=== PATIENT | male | born 1935 | race Caucasian/White ===

== ENCOUNTER → 2016-09-23 | Outpatient (CLI) | payer OTHER ==
[~2016-09-23] MED LIST: CLON1TAB PO; CLON1TAB3 PO; IBUP-1277 PO; MULT-513 PO; OMEG12006 PO; PREG1CAP70 PO; ROPI1TAB PO; SIMV80TA2 PO; TRAM-10 PO
--- NOTE | 2016-09-23 12:47 | DIAGNOSTIC IMAGING REPORT ---
BILATERAL LOWER EXTREMITY VENOUS DOPPLER HISTORY: Pain. Edema. SWELLING OF LOWER EXTREMITY M79.89 COMPARISON STUDY: None. FINDINGS: There is normal compressibility, flow, and augmentation within the bilateral lower extremity deep venous systems. IMPRESSION: No DVT within the right or left lower extremity. Electronically signed by: Molina Villar M.D. 09/23/2016 12:46 PM Dictated Date/Time: 09/23/2016 12:46 PM
--- NOTE | 2016-09-28 10:33 | CODING QUERY MEDICAL NECESSITY ---
SUPPORTING DIAGNOSIS NEEDED A supporting diagnosis is required for the test/procedure performed on this patient in order for us to be reimbursed by the patient's insurance. Please provide a supporting diagnosis for the following test/procedure listed below next to the test name along with your signature. *If there is no additional diagnosis for this patient that would support the following test/procedure please document that below next to the test/procedure. Test(s)/Procedure(s) that require a supporting diagnosis: * VENOUR DOPPLER LOWER EXTREMITY DIAGNOSIS: * DOS: 09/23/16 Provider Signature: Date: Thank you Paulina Rodriguez Health Information Management Once completed, please kindly fax back to [phone] For questions please call [phone]
== END | disposition home or self-care (01) ==
LOC: C.ULTR 11:57
PROVIDERS: ATTEND Physician Assistant Medical
DX: M79.89 Other specified soft tissue disorders (principal)

== ENCOUNTER → 2016-09-29 | Outpatient (CLI) | payer OTHER ==
[2016-09-29 13:09] LABS: ALB/GLOB RATIO 1.1 (0.9-2); ALKALINE PHOSPHATASE 97 U/L (45-117); ALT/SGPT 21 U/L (12-78); AST/SGOT 21 U/L (15-37); BLOOD UREA NITROGEN 17 mg/dl (7-18); BUN/CREATININE RATIO 12.2 (10-20); CALCIUM 9.1 mg/dl (8.5-10.1); CARBON DIOXIDE 32 mmol/L (21-32); CHLORIDE 106 mmol/L (98-107); CHOLESTEROL 141 mg/dl (0-200); GLUCOSE 62 mg/dl (70-99); SODIUM 144 mmol/L (136-145); TRIGLYCERIDES 80 mg/dl (0-150); VERY LOW DENSITY LIPOPROT CALC 16 mg/dl
[2016-09-29 13:10] LABS: CHOLESTEROL/HDL RATIO 2.7; HDL CHOLESTEROL 53 mg/dl; LDL CHOLESTEROL CALCULATED 72 mg/dl
== END | disposition home or self-care (01) ==
LOC: C.LABBFT 08:49
PROVIDERS: ATTEND Internal Medicine
DX: E78.00 Pure hypercholesterolemia, unspecified (principal)

== ENCOUNTER → 2016-10-05 | Outpatient (CLI) | payer OTHER | END | disposition home or self-care (01) | LOC: C.PATH 14:45 | PROVIDERS: ATTEND Dermatology | DX: C44.619 Basal cell carcinoma of skin of left upper limb, including shoulder (principal); L90.5 Scar conditions and fibrosis of skin ==

== ENCOUNTER → 2016-11-10 | Outpatient (CLI) | payer OTHER | END | disposition home or self-care (01) | LOC: C.PATH 17:02 | PROVIDERS: ATTEND Dermatology | DX: C44.619 Basal cell carcinoma of skin of left upper limb, including shoulder (principal) ==

== ENCOUNTER → 2017-03-14 | Outpatient (CLI) | payer OTHER ==
--- NOTE | 2017-03-14 13:34 | DIAGNOSTIC IMAGING REPORT ---
LEFT ANKLE MIN 3 VIEWS ROUTINE CLINICAL HISTORY: Left ankle pain. Left ankle sprain. COMPARISON: None FINDINGS: Note is made of moderate lateral ankle soft tissue swelling. There is an oblique mildly displaced fracture through the distal shaft of left fibula. There is no acute fracture of the distal left tibia. There is no ankle mortise widening. Os trigonum is present. IMPRESSION: 1. Acute oblique mildly displaced fracture of the distal shaft of the left fibula. 2. Moderate lateral ankle soft tissue swelling. 3. No ankle mortise widening. Electronically signed by: Derrell Olson M.D. 03/14/2017 1:32 PM Dictated Date/Time: 03/14/2017 1:30 PM
== END | disposition home or self-care (01) ==
LOC: C.RAD 12:42
PROVIDERS: ATTEND Internal Medicine
DX: S93.402A Sprain of unspecified ligament of left ankle, initial encounter (principal); M25.572 Pain in left ankle and joints of left foot; X58.XXXA Exposure to other specified factors, initial encounter

== ENCOUNTER → 2017-03-15 | Outpatient (CLI) | payer OTHER ==
--- NOTE | 2017-03-15 15:26 | DIAGNOSTIC IMAGING REPORT ---
LEFT LOWER EXTREMITY VENOUS DOPPLER CLINICAL HISTORY: Left calf pain and swelling. COMPARISON STUDY: Bilateral lower extremity venous Doppler September 23, 2016. TECHNIQUE: Sonography of the deep venous system of the left lower extremity was performed. Compression and augmentation were evaluated. FINDINGS: The left common femoral, superficial femoral and popliteal veins were compressible. Augmentation was normal. Flow was shown within the deep calf vessels. IMPRESSION: No evidence of deep venous thrombus within the left lower extremity. Electronically signed by: Derrell Olson M.D. 03/15/2017 3:25 PM Dictated Date/Time: 03/15/2017 3:24 PM
== END | disposition home or self-care (01) ==
LOC: C.ULTRBC 14:30
DX: M79.662 Pain in left lower leg (principal); R60.0 Localized edema

== ENCOUNTER → 2017-04-13 | Outpatient (CLI) | payer OTHER ==
[2017-04-13 12:29] LABS: HEMATOCRIT 44.7 % (42-52); MEAN CORPUSCULAR HEMOGLOBIN 29.5 pg (25-34); MEAN CORPUSCULAR HGB CONC 32.4 g/dl (32-36); PLATELET COUNT 140 K/uL (130-400); RED BLOOD COUNT 4.91 M/uL (4.7-6.1); WHITE BLOOD COUNT 7.34 K/uL (4.8-10.8)
[2017-04-13 12:55] LABS: BLOOD UREA NITROGEN 26 mg/dl (7-18); BUN/CREATININE RATIO 21.6 (10-20); CALCIUM 9.5 mg/dl (8.5-10.1); CARBON DIOXIDE 32 mmol/L (21-32); CHLORIDE 108 mmol/L (98-107); CHOLESTEROL 129 mg/dl (0-200); GLUCOSE 78 mg/dl (70-99); POTASSIUM 4.5 mmol/L (3.5-5.1); SODIUM 142 mmol/L (136-145)
[2017-04-13 12:59] LABS: ALB/GLOB RATIO 0.9 (0.9-2); ALKALINE PHOSPHATASE 89 U/L (45-117); ALT/SGPT 15 U/L (12-78); AST/SGOT 18 U/L (15-37); CHOLESTEROL/HDL RATIO 2.3; HDL CHOLESTEROL 57 mg/dl; LDL CHOLESTEROL CALCULATED 58 mg/dl; TRIGLYCERIDES 72 mg/dl (0-150); VERY LOW DENSITY LIPOPROT CALC 14 mg/dl
== END | disposition home or self-care (01) ==
LOC: C.LABBFT 08:33
PROVIDERS: ATTEND Internal Medicine
DX: E78.00 Pure hypercholesterolemia, unspecified (principal); I65.29 Occlusion and stenosis of unspecified carotid artery

== ENCOUNTER 2024-03-30 23:39 | Inpatient (IN) ==
--- OUTSIDE RECORDS SUMMARY | 2024-03-30 23:45 | External Medical Summary | Summary of Care ---
Author Name Unknown Organization [facility] Address [address] [place] [address] Phone [phone] Care Team Providers Care In Flight Technician Name Role Phone Ana BURROWS MD, Mauricio Buck Primary Care Pr ovider Reason for Visit * Reason Onset Date Comments Medication Refill 03/28/2024 Encounter Details Date Type Department Care Team (Late st Contact Info) Description 03/28/2024 Refill [facility] [address] [place] [address] Amanda Byrd PA-C [address] [place] [address] Allergies No known active allergiesdocumented as of this encounter (statuses as of 03/28/2024) Medications Medication Sig Dispensed Refills Start Date End Date Status CLONAZEPAM 0.5 MG PO TABS 1/2 in am and 1/2 in pm Active ROPINIROLE HCL 1 MG PO TABS at bedtime Active SIMVASTATIN 80 MG PO TABS at bedtime Active OMEGA 3 1200 MG PO CAPS two time daily Active ASPIRIN 81 MG PO TABS 2 x weekly Active MULTIVITAMINS PO CAPS daily Active TRAMADOL HCL 50 MG PO TABS two tablets three times daily as needed Active oxyCODONE HCl 5 MG Oral Tablet (Oxy IR) Take 0.5 Tablets by mouth 3 times a day. GIVE AT 7 AM, 1 PM AND 7 PM 60 Tablet 03/28/2024 Active Pregabalin 150 MG Oral Capsule (Lyrica) Take 1 Capsule by mouth in the morning and 1 Capsule at noon and 1 Capsule before bedtime. 90 Capsule 03/28/2024 Active oxyCODONE HCl 5 MG Oral Tablet (Oxy IR) Take 0.5 Tablets by mouth 3 times a day. GIVE AT 7 AM, 1 PM AND 7 PM 03/28/2024 03/28/2024 Discontinued (Refill) Pregabalin 150 MG Oral Capsule (Lyrica) Take 1 Capsule by mouth in the morning and 1 Capsule at noon and 1 Capsule before bedtime. 03/28/2024 03/28/2024 Discontinued (Refill) documented as of this encounter (statuses as of 03/28/2024) Social History Tobacco Use Types Packs/Day Years Used Date Smoking Tobacco: Former Cigarettes 0.8 52 0 [birth year]10/1951 - 07/10/2003 Smokeless Tobacco: Never Alcohol Use Standard Drinks/Week Comments No 0 (1 standard drink = 0.6 oz pur e alcohol) Utilities Answer Date Recorded Do you have trouble paying y our heating, water, or electric bill? (Adult - for ages 18 years and over) Not on file 12/12/2023 Is your family able to pay t he heat, water, or electric bill? (Household - for ages 0-17 years) Not on file 12/12/2023 Does your family have access to good internet? (Household - for ages 0-17 years) Not on file 12/12/2023 Social Connections Answer Date Recorded How often do you feel lonely or isolated from those around you? (Adult - for ages 18 years and over) Not on file 12/12/2023 Sex and Gender Information Value Date Recorded Sex Assigned at Not on file Gender Identity Not on file Sexual Orientation Not on file documented as of this encounter Miscellaneous Notes * Telephone Encounter - Amanda Byrd PA-C - 03/28/2024 4:08 PM EDT RX OXYCODONE 5MG, 2.5MG TID #60 R0 AND LYRICA 150MG TID #90 R0 [facility] documented in this encounter Plan of Treatment Upcoming Encounters Date Type Department Care Team (Late st Contact Info) Description 03/29/2024 9:00 AM EDT [facility] Visit [facility], [address] [place] [id number] Aliza Ayala MD [address] [place] [address] [place] [phone] Health Maintenance Due Date Last Done Comments Depression Screening 1947 DTap/Tdap Vaccines (1 - Tdap) 1954 Zoster Vaccines (1 of 2) 1985 Pneumococcal Vaccine: 65+ Ye ars (1 of 1 - PCV) 2000 *LDL AFTER STARTING A STATIN 06/17/2014 *ADVANCE DIRECTIVE NOT ON FILE 07/13/2014 COVID-19 Vaccine ( - 2023-2 5 season) 2024 Influenza Vaccine (FLU shot) (#1) 2024 HPV (Gardasil) Vaccine Aged Out No lo nger eligible based on patient's age to complete this topic Hepatitis B Vaccine Aged Out No longe r eligible based on patient's age to complete this topic MENINGOCOCCAL (MENACTRA/MENVEO) Aged Out No longer eligible based on patient's age to complete this topic documented as of this encounter Medical Devices Not on filedocumented as of this encounter Care Teams In Flight Technician Relationship Specialty Start Date End Date Mauricio Perez III, MD PCP - General Internal Medicine 11/20/12 documented as of this encounter
--- OUTSIDE RECORDS SUMMARY | 2024-03-30 23:45 | External Medical Summary | Continuity Of Care Document ---
Author Name Unknown Address [address] [place] [address] Organization [facility] ( ) Care Team Providers Care Tap And Die Maker Technician Name Role Phone JamieAliza Primary Care Provider [phone] VITAL SIGNS Date Time Diastolic blood pressure Systolic blood pressure Body height Body weight Temperature SpO2 Blood Sugar Pulse Respirations 49167 003 53401 5 148.00 [place] [address] 003 77510 2 102.00 mm[Hg] - Sitting 176.00 mm[Hg] - Sitting 72 NI 148.00 NI 96.40 Oral 92.00/ min 20.00/min 73433 003 48599 6 58565 003 77297 0 148.00 NI 74135 003 33028 0 66.00 mm[Hg] 96.00 % 34243 004 38009 0 99.10 Ear
--- OUTSIDE RECORDS SUMMARY | 2024-03-30 23:45 | External Medical Summary | Summary of Care ---
Author Name Unknown Organization [facility] Address [address] [place] [address] Phone [phone] Care Team Providers Care Electrician Office Name Role Phone Ana BURROWS MD, Mauricio Buck Primary Care Pr ovider Reason for Visit * Reason Onset Date Comments Senior Living Visit - Admission 03/29/2024 Encounter Details Date Type Department Care Team (Latest Contact Info) Description 03/29/2024 9:00 AM EDT Senior Living Visit [address] [place] [address] Aliza Ayala MD [address] [place] [address] [place] [address] Closed fracture of left side of occipital bone with routine healing, unspecified occipital fracture type, subsequent encounter*; Frequent falls; Bkvwsmu-Eqtmc-Gbbab disease; Neuropathic pain of both feet; Other dysphagia; Fracture of one rib excluding first rib; Dyslipidemia, goal LDL below 70; Pulmonary emphysema, unspecified emphysema type ([facility]); PVD (peripheral vascular disease) ([facility]); SSS (sick sinus syndrome) ([facility]); Memory impairment; Orthostatic hypotension; Nonrheumatic aortic valve stenosis; S/P placement of cardiac pacemaker Allergies No known active allergiesdocumented as of this encounter (statuses as of 03/29/2024) Medications Medication Sig Dispensed Refills Start Date End Date Status MULTIVITAMINS PO CAPS daily Active Pregabalin 150 MG Oral Capsule (Lyrica) Take 1 Capsule by mouth in the morning and 1 Capsule at noon and 1 Capsule before bedtime. 90 Capsule 03/28/2024 Active clonazePAM 0.5 MG Oral Tablet (KlonoPIN) Take 1 Tablet by mouth in the morning and 1 Tablet before bedtime. 60 Tablet 03/28/2024 Active Debrox 6.5 % Otic Solution (Carbamide Peroxide) Administer 5 Drops to the right ear in the morning and 5 Drops before bedtime. Fill ear canal and insert cotton plug. Remove plug after 15 to 30 minutes.. 03/28/2024 Active Acetaminophen 500 MG Oral Tablet (Tylenol) Take 1 Tablet by mouth in the morning and 1 Tablet at noon and 1 Tablet before bedtime. 03/28/2024 Active Fish Oil 1200 MG Oral Capsule Delayed Release Take 1 Capsule by mouth in the morning. 03/28/2024 Active Aspirin 81 MG Oral Tablet Chewable Take 1 Tablet by mouth in the morning. with food.. 03/28/2024 Active DULoxetine HCl 60 MG Oral Capsule Delayed Release Particles (Cymbalta) Take 1 Capsule by mouth in the morning. Do not cut, crush or chew. 03/28/2024 Active Ocuvite Adult Formula Oral Capsule Take 1 Capsule by mouth daily. 03/28/2024 Active DULoxetine HCl 30 MG Oral Capsule Delayed Release Particles (Cymbalta) Take 1 Capsule by mouth every evening. Do not cut, crush or chew 03/29/2024 Active traMADol HCl 50 MG Oral Tablet (Ultram)Indicati ons:Charcot-Rose e-Tooth disease,Neuropat hic pain of both feet Take 1 Tablet by mouth in the morning and 1 Tablet at noon and 1 Tablet before bedtime. 30 Tablet 03/29/2024 Active Atorvastatin Calcium 80 MG Oral Tablet (Lipitor) Take 1 Tablet by mouth every night at bedtime. 03/29/2024 Active oxyCODONE HCl 5 MG Oral Tablet (Oxy IR) Take 0.5 Tablets by mouth 3 times a day. GIVE AT 7 AM, 1 PM AND 7 PM 60 Tablet 03/28/2024 4 Discontinued Simvastatin 80 MG Oral Tablet (Zocor) Take 1 Tablet by mouth every evening. 03/28/2024 4 Discontinued documented as of this encounter (statuses as of 03/29/2024) Active Problems Problem Noted Date Diagnosed Date Closed fracture of left side of occipital bone with routine healing 03/29/2024 Neuropathic pain of both feet 03/29/2024 Dyslipidemia, goal LDL below 70 03/29/2024 S/P placement of cardiac pacemaker 03/29/2024 Pulmonary emphysema 03/29/2024 Emamxgd-Wtcyo-Tyhql disease 03/28/2024 Microcytic anemia 03/28/2024 Orthostatic hypotension 03/28/2024 Nonrheumatic mitral valve regurgitation 03/28/20 24 Vasculogenic erectile dysfunction 03/28/2024 Nonrheumatic aortic valve stenosis 03/28/2024 Asymptomatic bilateral carotid artery stenosis 1 PVD (peripheral vascular disease) 03/28/2024 History of TB (tuberculosis) 03/28/2024 SSS (sick sinus syndrome) 03/28/2024 Obstructive sleep apnea of adult 03/28/2024 First degree AV block 03/28/2024 Other dysphagia 03/28/2024 Basal cell carcinoma (BCC) of skin of right ear 03/28/2024 History of tobacco use 03/28/2024 Fracture of one rib excluding first rib 03/28/20 24 Infrarenal abdominal aortic aneurysm (AAA) witho ut rupture 03/28/2024 documented as of this encounter (statuses as of 03/29/2024) Social History Tobacco Use Types Packs/Day Years [...] on file documented as of this encounter Progress Notes * Aliza Ayala MD - 03/29/2024 11:37 AM EDT ADMISSION HISTORY and PHYSICAL TRANSITION EVENT: Type: SNF admission Date: March 28 Code Status: Full Code Name: Tyson Jeffrey Date of : 1935 This note pertains to care provided at [facility]. Please see facility medical record for original note. This note is not to be edited or addended in [employer]. Editing or addending needs to occur in the facilities medical record. S: Tyson Jeffrey had been admitted to [facility] from [facility] for PT and OT.Recently admitted to [facility] on 03/18/24 because of fall with left occipital bone fracture and was transferred here and admitted on 03/28/2024. Patient of Dr. 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 Patient notes he has been falling a lot, worse over the last few months, and often hits his head. He follows with neurology for CMT and reports chronic severe burning pain on both of his feet that is excruciating and has been managed by numerous medications by neurology (Dr. Farfan) including clonazepam, duloxetine, Pregabalin, and Tramadol. Patient states he usually ambulates with a cane but is balance is very poorand he usually falls forward or to the side but this particular fall he fell backwards and hit the back of his head on the floor. He denies any LOC. He initially when to [facility], where he was noted to have a large bruise at the base of his skull and a lanier sign behind the left ear. Head and cervicalspine CT showed a left occipital skull fracture with an overlying scalp hematoma. His hemoglobin was noted to be 11.9 and creatinine was 1.07. Patient was subsequently transferred to [facility] for higher level of care. At [facility], hewas also found to have a right posterior 7th rib fracture. Other incidental findings included a 4-5mm CSF hygroma in the right frontal region without significant mass effect or midline shift, multiple pulmonary nodules throughout the lungs bilaterally, fat-containing lesions in the left lung base,hamartomas versus lipomas that appeared benign, moderate-severe emphysema, bilateral renal cysts, and infrarenal fusiform AAA measuring 5.0 x 4.9 cm. Patient was seen by neurosurgery but no intervention needed. Patient denied pain from the rib fracture. He was seen by speech therapy for concerns of aspiration. He was placed on mildly thick liquids withy strict aspiration guidelines. Patient and family stated they would not ever pursue feeding tube. Patient's medications were adjusted. His clonazepam was reduced from 4 times a day to 2 times a day due to his falls but not discontinued for concerns of withdrawal. His Tramadol was changed to oxycodone. His other medications were continued. Patient is now admitted for PT/OT. Patient states the trip here was very difficult and he went muchlonger without pain medication than usual and was in severe pain. Patient notes he was taking Tramadol 4 times a day care home and that it helped much more than the oxycodone 2.5 mg TID he was sent on. Neurology notes were obtained from Dr. Farfan's office and his duloxetine had been increased by adding a 30 mg evening dose. He was taking clonazepam 0.5 mg 4 times a day and Tramadol 50 mg 4 times a day as well. Patient would like to return home to [place] [facility] [place]. He notes that he still drives. He reports his appetite is fair. Bowels are moving OK. Past Medical History: Patient Active Problem List Diagnosis Ergluai-Bbuan-Cdivr disease Microcytic anemia Orthostatic hypotension Nonrheumatic mitral valve regurgitation Vasculogenic erectile dysfunction Nonrheumatic aortic valve stenosis Asymptomatic bilateral carotid artery stenosis PVD (peripheral vascular disease) ([facility]) History of TB (tuberculosis) SSS (sick sinus syndrome) ([facility]) Obstructive sleep apnea of adult First degree AV block Other dysphagia Basal cell carcinoma (BCC) of skin of right ear History of tobacco use Fracture of one rib excluding first rib Infrarenal abdominal aortic aneurysm (AAA) without rupture ([facility]) Closed fracture of left side of occipital bone with routine healing Neuropathic pain of both feet Dyslipidemia, goal LDL below 70 S/P placement of cardiac pacemaker Pulmonary emphysema ([facility]) Current Outpatient Medications Medication Sig Dispense Refill DULoxetine HCl 30 MG Oral Capsule Delayed Release Particles (Cymbalta) Take 1 Capsule by mouth every evening. Do not cut, crush or chew traMADol HCl 50 MG Oral Tablet (Ultram) Take 1 Tablet by mouth in the morning and 1 Tablet at noon and 1 Tablet before bedtime. 30 Tablet 0 Atorvastatin Calcium 80 MG Oral Tablet (Lipitor) Take 1 Tablet by mouth every night at bedtime. MULTIVITAMINS PO CAPS daily Pregabalin 150 MG Oral Capsule (Lyrica) Take 1 Capsule by mouth in the morning and 1 Capsule at noon and 1 Capsule before bedtime. 90 Capsule 0 clonazePAM 0.5 MG Oral Tablet (KlonoPIN) Take 1 Tablet by mouth in the morning and 1 Tablet before bedtime. 60 Tablet 0 Debrox 6.5 % Otic Solution (Carbamide Peroxide) Administer 5 Drops to the right ear in the morning and 5 Drops before bedtime. Fill ear canal and insert cotton plug. Remove plug after 15 to 30 minutes.. Acetaminophen 500 MG Oral Tablet (Tylenol) Take 1 Tablet by mouth in the morning and 1 Tablet at noon and 1 Tablet before bedtime. Fish Oil 1200 MG Oral Capsule Delayed Release Take 1 Capsule by mouth in the morning. Aspirin 81 MG Oral Tablet Chewable Take 1 Tablet by mouth in the morning. with food.. DULoxetine HCl 60 MG Oral Capsule Delayed Release Particles (Cymbalta) Take 1 Capsule by mouth in the morning. Do not cut, crush or chew. Ocuvite Adult Formula Oral Capsule Take 1 Capsule by mouth daily. No current facility-administered medications for this visit. Review of patient's allergies indicates: No Known Allergies Social History Tobacco Use Smoking status: Former Current packs/day: 0.00 Average packs/day: 0.8 packs/day for 52.0 years (41.6 ttl pk-yrs) Types: Cigarettes Start date: 07/10/1951 Quit date: 07/10/2003 Years since quittin.7 Smokeless tobacco: Never Substance Use Topics Alcohol use: No Vaping/E-Cigarette Use Vaping/E-Cigarette Substances Vaping/E-Cigarette Devices Past Surgical History: Procedure Laterality Date LAPAROSCOPY; CHOLECYSTECTOMY 10/17/2012 10/17/2012 [facility] laparoscopic cholecystectomy - Dr. Molina Marti LUMBAR DISCECTOMY, PERC Family History Problem Relation Name Age of Onset Alzheimer's disease Mother Breast Cancer Mother Heart attack Father Heart disease Brother Stroke Brother Family Status Relation Status Mo Fa Bro Alive Review of Systems: Constitutional ROS: No change in weight, No fevers, sweats, or chills, and +generalized weakness Eye ROS: No recent significant change in vision and No eye pain, redness, discharge Ear ROS: No ear pain, No drainage, No tinnitus or vertigo, and No recent change in hearing Nose ROS: No history of frequent colds or sinusitis, No nasal stuffiness, No history of Hay Fever, and No significant epistaxis Mouth/Throat ROS: No bleeding gums, No thrush, or No sore throat Pulmonary ROS: No cough, sputum, or hemoptysis, No wheezing, No shortness of breath, and No recent change in breathing. +emphysema on CT scan Cardiovascular ROS: No chest pain, No shortness of breath, No orthopnea, No paroxysmal nocturnal dyspnea, No edema, No palpitations, and No syncope Gastrointestinal ROS: No abdominal pain, No change in bowel habits, No significant heartburn, No significant change in appetite, No nausea, vomiting, diarrhea, or constipation, No hematemesis, No blood in stools or black tarry stools, No abdominal bloating or early satiety, and +dysphagia Genito-Urinary Male ROS: No dysuria and No frequency Musculoskeletal/Extremities ROS: +as per HPI Hematologic/Lymphatic ROS: No coagulation disorder, No anemia, and No abnormal bleeding Skin/Integumentary ROS: No rash and No itching Neurologic ROS: No headaches, No seizures, and +CMT, poor balance, ?memory loss Endocrine ROS: No heat intolerance, No cold intolerance, No thyroid trouble, No excessive thirst orurination, and No history of diabetes Psychiatric ROS: No depression, No anxiety, and No psychosis ADL skills: dependent Ambulates with walker OBJECTIVE: PHYSICAL EXAM: I reviewed the most recent facilities vitals. Refer to vital signs flowsheet in retirement chart.General: alert, no distress, and frail, thin elderly male Head: Normocephalic, No masses, lesions, tenderness or abnormalities Eye Exam: PERRLA, extraocular movements intact, conjunctiva are pink and non- injected, sclera clear Ears: External ears normal Nose: no mucosal erythema, no mucosal edema, no purulent discharge Oropharynx: no exudate, no erythema, lips, buccal mucosa, and tongue normal, and mucous membranes are moist Neck: supple, no adenopathy, no bruits Heart: regular rate & rhythm, no gallops, and 3/6 holosystolic low pitched harsh murmur aortic area Lungs: chest symmetric with normal AP diameter, no chest deformities noted, no chest wall tenderness, lungs clear to auscultation Abdomen: abdomen soft, non-tender, normal bowel sounds, and no masses or organomegaly Extremities: no edema, no clubbing, no cyanosis, very thin, wasted extremities Neuro Exam: alert & oriented x 3 with fluent speech, no focal motor/sensory deficits ASSESSMENT: Closed fracture of left side of occipital bone with routine healing, unspecified occipital fracturetype, subsequent encounter (Primary)--no intervention needed. Frequent falls--continue PT/OT. Patient with poor balance related to CMT, neuropathy, and frailty/low muscle mass. He is also on numerous sedating chronic medications for pain but patient notes unbearable constant pain without them. Equcnhp-Ysjlt-Puvcl disease--patient notes better pain control with Tramadol Will discontinue oxycodone and change back to Tramadol. Will attempt to reduce slightly but changing to TID (rather than QID as at home) but may need to increase if pain uncontrolled. His clonazepam was reduced to 0.5 mg twice daily. Will defer to neurology for further weaning as has been used for his pain. Continue Lyrica 150 mg TID. Will also add the additional 30 mg dose of duloxetine in the evening as per his home dosing. - traMADol HCl 50 MG Oral Tablet (Ultram); Take 1 Tablet by mouth in the morning and 1 Tablet at noon and 1 Tablet before bedtime. Neuropathic pain of both feet--as above - traMADol HCl 50 MG Oral Tablet (Ultram); Take 1 Tablet by mouth in the morning and 1 Tablet at noon and 1 Tablet before bedtime. Other dysphagia--continue speech therapy and thickened liquids. Fracture of one rib excluding first rib--not causing much pain. Dyslipidemia, goal LDL below 70--will discontinue simvastatin 80 mg due to risk of myopathy and start atorvastatin 80 mg daily instead. Pulmonary emphysema, unspecified emphysema type (HCC)--on CT. No apparent symptoms and not on treatment. PVD (peripheral vascular disease) (HCC)--continue aspirin 81 mg daily and high intensity statin. SSS (sick sinus syndrome) (HCC)--s/p pacemaker Memory impairment--per neurology note. Monitor. Orthostatic hypotension--not on antihypertensives Nonrheumatic aortic valve stenosis S/P placement of cardiac pacemaker PLAN: 1. Continue present medication(s): Begin medication(s): Atorvastatin 80 mg daily and Tramadol 50mg TID Discontinue medication(s): oxycodone and simvastatin 80 mg due to risk of myopathy in elderly, frail patient with CMT, low muscle mass and falls Change dose of medication(s) to Increase duloxetine to home dose of 90 mg daily Schedule labs: CBC w/diff, BMP 2. Admission orders, medications, labs, hospital records and care plan reviewed. 3. Material Control Supervisor consult, Physical Therapy, Occupational Therapy, and Speech Therapy ordered. 4. Care plan reviewed. 5. Advance Directives were discussed: Full Code pending discussion with daughter. Patient wishes todiscuss with daughter before deciding on code status. 6. Retirement Home Treatment Given: n/a Electronically signed by: Aliza Ayala MD I spent a total of 40-54 minutes (exact time 53 mins) on the date of service in preparation, delivery, and documentation of the care provided to Tyson Jeffrey excluding any time spent in the performance of separately billed services or time spent by another provider/QHP. documented in this encounter Plan of Treatment Health Maintenance Due Date Last Done Comments Pneumococcal Vaccine: 65+ Ye ars (1 of 2 - PCV) 1941 Depression Screening 1947 AAA Monitoring 1953 Alpha-1 Antitrypsin 1953 O2 ASSESSMENT COMPLETED IN P AST YEAR FOR COPD 1953 DTap/Tdap Vaccines (1 - Tdap) 1954 Zoster Vaccines (1 of 2) 1985 *LDL AFTER STARTING A STATIN 06/17/2014 *ADVANCE [...] Not on filedocumented as of this encounter Visit Diagnoses Diagnosis Closed fracture of left side of occipital bone with routine healing, unspecified occipital fracture type, subsequent encounter- Primary Frequent falls Personal history of fall Bwkcqwy-Tdaeg-Dkupd disease Peroneal muscular atrophy Neuropathic pain of both feet Other dysphagia Fracture of one rib excluding first rib Dyslipidemia, goal LDL below 70 Other and unspecified hyperlipidemia Pulmonary emphysema, unspecified emphysema type (HCC) PVD (peripheral vascular disease) (HCC) Peripheral vascular disease, unspecified SSS (sick sinus syndrome) (HCC) Sinoatrial node dysfunction Memory impairment Memory loss Orthostatic hypotension Nonrheumatic aortic valve stenosis Aortic valve disorders S/P placement of cardiac pacemaker Cardiac pacemaker in situ documented in this encounter Care Teams Electrician Office Relationship Specialty Start Date End Date Mauricio Perez III, MD PCP - General Internal Medicine 11/20/12 documented as of this encounter
--- OUTSIDE RECORDS SUMMARY | 2024-03-30 23:45 | External Medical Summary | Continuity Of Care Document ---
Author Name Unknown Address [address] [place] [address] Organization [facility] ( ) Care Team Providers Care Certified Personal Chef Name Role Phone JamieAliza Primary Care Provider [phone] VITAL SIGNS Date Time Diastolic blood pressure Systolic blood pressure Body height Body weight Temperature SpO2 Blood Sugar Pulse Respirations 18071 003 70448 5 148.00 NI 74582 003 90318 2 102.00 mm[Hg] - Sitting 176.00 mm[Hg] - Sitting 72 NI 148.00 NI 96.40 Oral 92.00/ min 20.00/min 23078 003 74276 6 34584 003 14073 0 148.00 NI 65474 003 50738 0 66.00 mm[Hg] 96.00 % 09718 004 96987 0 99.10 Ear
--- OUTSIDE RECORDS SUMMARY | 2024-03-30 23:45 | External Medical Summary | Summary of Care ---
Author Name Unknown Organization [facility] Address [address] [place] [address] Phone [phone] Care Team Providers Care Principal System Software Engineer Name Role Phone Ana BURROWS MD, Mauricio Buck Primary Care Pr ovider Reason for Visit * Reason Onset Date Comments [facility] Visit 03/28/2024 Encounter Details Date Type Department Care Team (Latest Contact Info) Description 03/28/2024 11:30 AM EDT [facility] Visit [facility] [address] [place] [address] Amanda Byrd PA-C [address] [place] [address] Closed fracture of occipital bone, unspecified laterality, unspecified occipital fracture type, initial encounter (HCC)*; Recurrent falls; Fracture of one rib excluding first rib; Ihasxar-Frtrd-Zrjzd disease; PVD (peripheral vascular disease) ([facility]); Asymptomatic bilateral carotid artery stenosis; Orthostatic hypotension; Obstructive sleep apnea of adult; Microcytic anemia; Infrarenal abdominal aortic aneurysm (AAA) without rupture ([facility]) Allergies No known active allergiesdocumented as of this encounter (statuses as of 03/28/2024) Medications Medication Sig Dispensed Refills Start Date End Date Status MULTIVITAMINS PO CAPS daily Active Debrox 6.5 % Otic Solution (Carbamide [...] 1 Capsule by mouth daily. 03/28/2024 Active Simvastatin 80 MG Oral Tablet (Zocor) Take 1 Tablet by mouth every evening. 03/28/2024 Active LYRICA 100 MG PO CAPS three times a day 4 Discontinued(Medi cation List Clean Up) CLONAZEPAM 0.5 MG PO TABS 1/2 in am and 1/2 in pm 4 Discontinued ROPINIROLE HCL 1 MG PO TABS at bedtime 4 Discontinued(Medi cation List Clean Up) SIMVASTATIN 80 MG PO TABS at bedtime 4 Discontinued(Medi cation List Clean Up) OMEGA 3 1200 MG PO CAPS two time daily 4 Discontinued(Medi cation List Clean Up) ASPIRIN 81 MG PO TABS 2 x weekly 4 Discontinued(Medi cation List Clean Up) TRAMADOL HCL 50 MG PO TABS two tablets three times daily as needed 4 Discontinued(Medi cation List Clean Up) oxyCODONE HCl 5 MG Oral Tablet (Oxy IR) Take 0.5 Tablets by mouth 3 times a day. GIVE AT 7 AM, 1 PM AND 7 PM 03/28/2024 4 Discontinued(Refi ll) Pregabalin 150 MG Oral Capsule (Lyrica) Take 1 Capsule by mouth in the morning and 1 Capsule at noon and 1 Capsule before bedtime. 03/28/2024 4 Discontinued(Refi ll) documented as of this encounter (statuses as of 03/28/2024) Active Problems Problem Noted Date Diagnosed Date Gzvkkqq-Fxqpg-Wxyej disease 03/28/2024 Microcytic anemia 03/28/2024 Orthostatic hypotension 03/28/2024 Nonrheumatic mitral valve regurgitation 03/28/20 Vasculogenic erectile dysfunction 03/28/2024 Nonrheumatic aortic valve [...] of one rib excluding first rib 03/28/20 Infrarenal abdominal aortic aneurysm (AAA) witho ut [...] on file documented as of this encounter Plan of Treatment Upcoming Encounters Date Type Department Care Team (Late st Contact Info) Description 03/29/2024 9:00 AM EDT [facility] Visit [address] [address] Aliza Reyes MD [address] [place] [address] [place] [id number] Health Maintenance Due Date Last Done Comments Depression Screening 1947 DTap/Tdap Vaccines (1 - Tdap) 1954 Zoster Vaccines (1 of 2) 1985 Pneumococcal Vaccine: 65+ Ye ars (1 of 1 - PCV) 2000 *LDL AFTER STARTING A STATIN 06/17/2014 *ADVANCE DIRECTIVE NOT ON FILE 07/13/2014 COVID-19 Vaccine (2023-2 5 season) 2024 Influenza Vaccine (FLU shot) [...] encounter Visit Diagnoses Diagnosis Closed fracture of occipital bone, unspecified laterality, unspecified occipital fracture type, initial encounter (HCC)- Primary Recurrent falls Personal history of fall Fracture of one rib excluding first rib Yoabctw-Owupj-Vxoob disease Peroneal muscular atrophy PVD (peripheral vascular disease) (HCC) Peripheral vascular disease, unspecified Asymptomatic bilateral carotid artery stenosis Occlusion and stenosis of multiple and bilateral precerebral arteries without mention of cerebral infarction Orthostatic hypotension Obstructive sleep apnea of adult Obstructive sleep apnea (adult) (pediatric) Microcytic anemia Iron deficiency anemia, unspecified Infrarenal abdominal aortic aneurysm (AAA) without rupture (HCC) documented in this encounter Care Teams Principal System Software Engineer Relationship Specialty Start Date End Date Mauricio Perez III, MD PCP - General Internal Medicine 11/20/12 documented as of this encounter
--- OUTSIDE RECORDS SUMMARY | 2024-03-30 23:45 | External Medical Summary | Continuity Of Care Document ---
Author Name Unknown Address [address] [place] [address] Organization [facility] ( ) Care Team Providers Care Life Claims Examiner Name Role Phone JamieAliza Primary Care Provider [phone] VITAL SIGNS Date Time Diastolic blood pressure Systolic blood pressure Body height Body weight Temperature SpO2 Blood Sugar Pulse Respirations 30547 003 30039 5 148.00 NI 59314 003 67745 2 102.00 mm[Hg] - Sitting 176.00 mm[Hg] - Sitting 72 NI 148.00 NI 96.40 Oral 92.00/ min 20.00/min 93651 003 82882 6 63700 003 49013 0 148.00 NI 22139 003 21031 0 66.00 mm[Hg] 96.00 % 86180 004 12910 0 99.10 Ear
--- OUTSIDE RECORDS SUMMARY | 2024-03-30 23:45 | External Medical Summary | Continuity Of Care Document ---
Author Name Unknown Address [address] [place] [address] Organization [facility] ( ) Care Team Providers Care Oil Rag Washer Name Role Phone JamieAliza Primary Care Provider [phone] VITAL SIGNS Date Time Diastolic blood pressure Systolic blood pressure Body height Body weight Temperature SpO2 Blood Sugar Pulse Respirations 26100 003 45254 5 148.00 NI 17656 003 92564 2 102.00 mm[Hg] - Sitting 176.00 mm[Hg] - Sitting 72 NI 148.00 NI 96.40 Oral 92.00/ min 20.00/min 89981 003 95512 6 98174 003 75284 0 148.00 NI 75160 003 53041 0 66.00 mm[Hg] 96.00 % 05518 004 19117 0 99.10 Ear
[2024-03-31 00:07] LABS: Hemoglobin 12.5 g/dl (14.0-18.0); Mean Corpuscular Hemoglobin 26.2 pg (25.0-34.0); Mean Corpuscular Hgb Conc 31.3 g/dL (32.0-36.0); Mean Corpuscular Volume 83.9 fL (80.0-100.0); Mean Platelet Volume 10.1 fL (9.4-12.4); Platelet Count 338 K/uL (130-400); Red Blood Count 4.77 M/uL (4.70-6.10); White Blood Count 25.78 K/ul (4.8-10.8)
[2024-03-31 00:23] LABS: Albumin Level 3.8 gm/dl (3.4-5.0); BUN Creatinine Ratio 30.4 (10-20); Bilirubin,Total 0.4 mg/dl (0.2-1.0); Calcium 9.5 mg/dl (8.6-10.3); Creatinine Clr Calc Pharmacy 62.7 ml/min; Globulin 3.9 gm/dl (2.5-4.0); Potassium 4.3 mmol/L (3.5-5.1); Total Protein 7.7 gm/dl (6.0-8.3)
[2024-03-31 00:28] LABS: Basophils % (auto) 0.4 %; Eosinophils # (auto) 0.01 K/uL (0.00-0.50); Immature Granulocytes % (auto) 0.8 %; Lymphocytes # (auto) 1.38 K/uL (1.20-3.40); Lymphocytes % (auto) 5.4 %; Monocytes # (auto) 2.72 K/uL (0.11-0.59); Monocytes % (auto) 10.6 %; Neutrophils # (auto) 21.37 K/uL (1.40-6.50); Neutrophils % (auto) 82.8 %; Polychromasia 1+
[2024-03-31 00:31] LABS: Troponin I High Sensitivity 34.5 pg/ml (0-20)
--- NOTE | 2024-03-31 00:33 | Emergency Department Note ---
Impression & Plan Pneumonia, UTI (urinary tract infection), Fever, Acute confusion ED Provider Note NAME: JEN GUAN AGE: 88 SEX: M : 1935 ARRIVES VIA: Ambulance INFORMANT: Patient, ED PROVIDER(S): Lalo Bartlett MD CHIEF COMPLAINT: Fever, confusion HPI: This is an 88-year-old male presenting for fever and confusion. Patient with his daughter. She pulls me aside outside of the room and states that he appears confused and was hallucinating. He thought the president had today. He otherwise was not acting himself, slower to respond as per daughter self-report. Otherwise patient does mention that he is here because he had a fever. He denies any current chest pain. ROS: See above HPI for pertinent positives & negatives. A total of 10 systems reviewed and were otherwise negative. PAST MEDICAL HISTORY: See Below PAST SURGICAL HISTORY: See Below FAMILY HISTORY: See Below SOCIAL HISTORY: See Below HOME MEDICATIONS: See Below ALLERGIES: See Below VITALS: See Below PHYSICAL EXAMINATION: General: resting comfortably in no acute distress Head: Normocephalic and atraumatic Eyes: Normal inspection, extraocular muscles intact Ear, nose, throat: Normal external exam Neck: Normal range of motion Respiratory: Rhonchi at the bases Cardiovascular: Regular rate/rhythm, no murmur GI: soft, nontender, no guarding or rebound Extremities: nontender, moves all extremities Neuro: The patient awake and alert, appropriately conversive, no focal deficits, symmetric faces Skin: Warm, dry, and intact MEDICAL DECISION MAKING: This is an 88-year-old male presenting for fever/confusion. Patient does appear slightly confused. Will do a UA, CXR, blood work, operatory panel. Patient is currently hypoxic requiring 2 L nasal cannula. He is tachycardic. Will give fluids. Patient is also febrile. -Chest Xray independently interpreted by me showing no pneumothorax, focal opacity, or pleural effusions. -Bloodwork is reviewed with his significant leukocytosis of 25. Otherwise electrolytes within normal limits. Troponin is surprisingly elevated at 34.5, slightly elevated from value a few weeks ago. Will treat with ceftriaxone and doxycycline at this time for suspected pneumonia clinically. -Patient is still hypoxic with troponin elevation and no chest pain. Will do CTA protocol as to rule out PE and elucidate for pneumonia -CT does reveal bibasilar infiltrates concerning for infection -Upper respiratory panel is currently negative -UA also reveals signs of UTI at this time Differential diagnosis: ACS, PE, pneumonia, upper respiratory infection ER treatment provided: See below Independent History obtained from: Daughter Diagnostics interpreted by me: ECG: ECG independently interpreted by me with sinus tachycardia at a rate of 107, first-degree AV block normal axis, normal QRS, normal QTc, no ST segment elevations consistent with STEMI criteria, slight elevations in the inferior leads Cardiac Monitoring: An order was placed for continuous cardiac monitoring. The monitor shows a rate of 97 with sinus rhythm. Laboratory studies: As stated above and show below. Imaging studies: See below. Past Med/Surg History Problem List (Updated 03/31/24 @ 06:19 by Lalo Bartlett MD) Acute confusion (Acute) Fever (Acute) UTI (urinary tract infection) (Acute) Pneumonia (Acute) Pneumonia UTI (urinary tract infection) Frequent falls (Acute) Skull fracture (Acute) Microcytic anemia Orthostatic hypotension Mitral regurgitation Hypovitaminosis D Erectile dysfunction Elevated C-reactive protein (CRP) Elevated erythrocyte sedimentation rate Ataxia Carotid artery stenosis follows Dr.karla wood /[place] Weakness Hypotension Elevated troponin Bradycardia (Chronic) Peripheral neuropathy Hyperlipidemia Anxiety Gxagcoe-Votca-Uklja disease (Chronic) Gait abnormality Fall Sleep disturbance, unspecified Polyneuropathy Peripheral vascular disease Personal history of tuberculosis (10/17/12) PAD (peripheral artery disease) Neuropathic pain Memory impairment Hypercholesteremia Hereditary sensorimotor neuropathy Heart murmur Hypertension (Chronic 10/17/12) Chronic obstructive pulmonary disease Left groin mass Back problem Reducible left inguinal hernia SSS (sick sinus syndrome) (Acute) 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 Goldman 12/25/2019 Person under investigation for COVID-19 (Acute) Unintentional weight loss Urinary incontinence Stool incontinence Aortic stenosis Trouble swallowing Charcot-Rebecca disease Dysphagia Carotid stenosis (Chronic) Stroke-like symptoms Somnolence, daytime Severe sleep apnea Nocturnal hypoxemia Preop examination Medicare annual wellness visit, subsequent CMT (Woobngh-Ihvfg-Faoxs disease) Hemoptysis Medical History Peripheral neuropathy Osteoarthritis Chronic back pain Anxiety Chronic obstructive pulmonary disease per records/patient denies SSS (sick sinus syndrome) sees cardiology Hypertension hx Sleep apnea no machine Tuberculosis age 32> CXR (-) since Dyslipidemia Skin cancer see Mohs procedure Surgical History History of tooth extraction History of adenoidectomy History of tonsillectomy History of colonoscopy S/P Mohs surgery for basal cell carcinoma right ear to chin to left side of jaw bone History of cholecystectomy ~2012 H/O discectomy lumbar Family History Daughter Acute ischemic enteritis Mother Alzheimer disease Dementia Breast cancer Bsejjoh-Lslbg-Nvtmm disease Father Coronary heart disease Pacemaker Hypertension Myocardial infarction Brother Coronary heart disease Hx of CABG Stroke Myocardial infarction Sister Diverticulosis of intestine Grandfather Cancer Other Diabetes Family history non-contributory Denies family history of Ovarian cancer Prostate cancer Colorectal cancer Social History Smoking Status: Former smoker Tobacco Type: Cigarettes Age Started Using Tobacco: 14; Age Quit Using Tobacco: 60; packs per day: 0.75; Cigarettes Per Day: <20; Second Hand Exposure: No; Do You Dip or Chew Tobacco: No; Hx Alcohol Use: No Hx Substance Use: No Preferred Language: Australian Communication Ability: Effective Visual Impairment: No Limitations Hearing Ability: Normal Legal Secretary Receptionist Required: No Beliefs That Will Affect Care: None marital status: Current Living Situation: Alone Current Living Situation Comment: Currently at [facility]. current occupational status: retired Other Information That Helps Us Care for You: No Feels Safe at Home: Yes Safety Concerns: Feels Safe At This Time Childhood Exposure to Second-Hand Smoke: Yes Diet: regular caffeine: Yes Dental Care, Regularly: No Physical Activity Frequency: 1-2 Times per Week Seatbelt Use: always Sunscreen Use: Yes Assistive Devices: Cane, CPAP, Denture - Upper, Denture - Lower, Glasses and Walker Allergies Allergies Allergy/AdvReac Type Severity Reaction Status Date / Time No Known Allergies Allergy Unknown Verified 03/14/24 13:45 Home Meds Home Medications Medication Instructions Recorded Confirmed multivitamin 1 tab PO QAM 03/01/18 03/31/24 acetaminophen 500 mg tablet 500 - 1,000 mg PO DIRECTED PRN 04/02/20 03/31/24 FEVER/PAIN sennosides 8.6 mg-docusate sodium 1 tab-cap PO BID 06/29/20 03/31/24 50 mg tablet (Senna with Docusate Sodium) omega-3 fatty acids 150 mg-fish 1 cap PO BID #0 caps 09/03/21 03/31/24 oil 400 mg capsule Previous Rx's Medication Instructions Recorded simvastatin 80 mg tablet 80 mg PO HS #100 tabs 03/27/23 sildenafil 50 mg tablet 50 mg PO DAILY PRN sexual activity 05/23/23 #6 tabs pregabalin 150 mg capsule (Lyrica) 150 mg PO TID 30 days #90 caps 10/16/23 duloxetine 60 mg capsule,delayed 60 mg PO QAM #90 caps 11/21/23 release clonazepam 1 mg tablet 0.5 mg (1/2 x 1 mg) PO QID 30 days 12/29/23 #60 tabs duloxetine 30 mg capsule,delayed 30 mg PO QPM #30 caps 02/05/24 release (Cymbalta) aspirin 81 mg tablet,delayed 81 mg PO DAILY #30 tabs 02/22/24 release (Adult Aspirin Regimen) tramadol 50 mg tablet 50 mg PO Q6H PRN pain #120 tabs 02/29/24 Results & Data (ED) Vital Signs Vital Signs - 24 hr 03/30/24 23:38 03/30/24 23:45 03/31/24 00:00 Temperature 37.4 C Temperature Source Oral Pulse Rate 112 H 115 H Pulse Rate [Right Finger] 120 H Pulse Rhythm Regular Pulse Rhythm [Right Finger] Regular Pulse Strength Normal Pulse Strength [Right Finger] Normal Respiratory Rate 20 24 Respiratory Effort / Characteristics Non-Labored Non-Labored Respiratory Depth Normal Normal Respiratory Pattern Regular Regular Blood Pressure 116/78 Blood Pressure [Right Arm] 115/79 Blood Pressure Mean 90 Blood Pressure Mean [Right Arm] 91 Blood Pressure Position Lying Blood Pressure Position [Right Arm] Lying Pulse Oximetry 85 L 93 Oxygen Delivery Method Room Air Nasal Cannula Oxygen Flow Rate 2 Sepsis Recent Fever Within 48 Hours Yes Sepsis New/Unexplained Change in Mental Status No Sepsis Action Taken by Nursing No Action Required Pulse Oximetry Post Tiitration 03/31/24 00:00 03/31/24 00:03 Temperature Temperature Source Pulse Rate 126 H Pulse Rate [Right Finger] Pulse Rhythm Regular Pulse Rhythm [Right Finger] Pulse Strength Pulse Strength [Right Finger] Respiratory Rate 25 H Respiratory Effort / Characteristics Respiratory Depth Respiratory Pattern Blood Pressure Blood Pressure [Right Arm] Blood Pressure Mean Blood Pressure Mean [Right Arm] Blood Pressure Position Blood Pressure Position [Right Arm] Pulse Oximetry 94 85 L Oxygen Delivery Method Nasal Cannula Room Air Nasal Cannula Oxygen Flow Rate 2 2 Sepsis Recent Fever Within 48 Hours Sepsis New/Unexplained Change in Mental Status Sepsis Action Taken by Nursing Pulse Oximetry Post Tiitration 92 Laboratory Data 03/30/24 23:52 03/30/24 23:52 Lab Results 03/30/24 03/31/24 03/31/24 Range/Units 23:52 00:00 00:10 WBC 25.78 H (4.8-10.8) K/ul RBC 4.77 (4.70-6.10) M/uL Hgb 12.5 L (14.0-18.0) g/dl Hct 40.0 L (42.0-52.0) % MCV 83.9 (80.0-100.0) fL MCH 26.2 (25.0-34.0) pg MCHC 31.3 L (32.0-36.0) g/dL RDW Std Deviation 49.0 H (36.4-46.3) fL RDW Coeff of Renny 16.0 H (11.5-14.5) % Plt Count 338 (130-400) K/uL MPV 10.1 (9.4-12.4) fL Immature Gran % (Auto) 0.8 % Neut % (Auto) 82.8 % Lymph % (Auto) 5.4 % Bullock % (Auto) 10.6 % Eos % (Auto) 0.0 % Baso % (Auto) 0.4 % Neut # (Auto) 21.37 H (1.40-6.50) K/uL Lymph # (Auto) 1.38 (1.20-3.40) K/uL Bullock # (Auto) 2.72 H (0.11-0.59) K/uL Eos # (Auto) 0.01 (0.00-0.50) K/uL Baso # (Auto) 0.10 (0.00-0.20) K/uL Immature Gran # (Auto) 0.20 (0.01-0.20) K/uL Polychromasia 1+ Sodium 137 (136-145) mmol/L Potassium 4.3 (3.5-5.1) mmol/L Chloride 103 (98-107) mmol/L Carbon Dioxide 27 (21-32) mmol/L Anion Gap 7 (3-11) BUN 28 H (6-23) mg/dl Creatinine 0.92 (0.6-1.4) mg/dl Est Cr Clr Drug Dosing 62.7 ml/min eGFR 80.01 BUN/Creatinine Ratio 30.4 H (10-20) Glucose 161 H (70-99(Fasting)) mg/dl Calcium 9.5 (8.6-10.3) mg/dl Magnesium (1.7-2.4) mg/dl Total Bilirubin 0.4 (0.2-1.0) mg/dl AST 26 (13-39) U/L ALT 33 (7-52) U/L Alkaline Phosphatase 101 (34-104) U/L Troponin I High Sens 34.5 H (0-20) pg/ml Total Protein 7.7 (6.0-8.3) gm/dl Albumin 3.8 (3.4-5.0) gm/dl Globulin 3.9 (2.5-4.0) gm/dl Albumin/Globulin Ratio 1.0 (0.9-2) Urine Color Yellow Urine Appearance Cloudy A (Clear) Urine pH 5.5 (4.5-7.5) Ur Specific [place] 1.023 (1.000-1.030) Urine Protein 1+ H (Negative) Urine Glucose (UA) Negative (Negative) Urine Ketones Trace H (Negative) Urine Blood 2+ H (Negative) Urine Nitrite Positive A (Negative) Urine Bilirubin Negative (Negative) Urine Urobilinogen Negative (Negative) Ur Leukocyte Esterase 2+ H (Negative) Urine WBC (Auto) 21-50 H (0-5) /hpf Urine RBC (Auto) 11-20 H (0-2) /hpf U Hyaline Cast (Auto) 0-2 (0-2) /lpf U Epithel Cells (Auto) 0-2 (0-2) /hpf Urine Bacteria (Auto) 4+ H (None Seen) Adenovirus (PCR) Not Detected (NotDetected) B. pertussis DNA (PCR) Not Detected (NotDetected) B.parapertussis DNA PCR Not Detected (NotDetected) C. pneumoniae DNA (PCR) Not Detected (NotDetected) Coronavirus OC43 (PCR) Not Detected (NotDetected) Coronavirus HKU1 (PCR) Not Detected (NotDetected) Coronavirus 229E (PCR) Not Detected (NotDetected) SARS-CoV-2 (PCR) Not Detected (NotDetected) Coronavirus NL63 (PCR) Not Detected (NotDetected) Human Metapneumovir PCR Not Detected (NotDetected) Influenza Type A (PCR) Not Detected (NotDetected) Influenza Type B (PCR) Not Detected (NotDetected) M. pneumoniae (PCR) Not Detected (NotDetected) Parainfluenza 1 (PCR) Not Detected (NotDetected) Parainfluenza 2 (PCR) Not Detected (NotDetected) Parainfluenza 3 (PCR) Not Detected (NotDetected) Parainfluenza 4 (PCR) Not Detected (NotDetected) RSV (PCR) Not Detected (NotDetected) Entero/Rhino (PCR) Not Detected (NotDetected) 03/31/24 Range/Units 01:35 WBC (4.8-10.8) K/ul RBC (4.70-6.10) M/uL Hgb (14.0-18.0) g/dl Hct (42.0-52.0) % MCV (80.0-100.0) fL MCH (25.0-34.0) pg MCHC (32.0-36.0) g/dL RDW Std Deviation (36.4-46.3) fL RDW Coeff of Renny (11.5-14.5) % Plt Count (130-400) K/uL MPV (9.4-12.4) fL Immature Gran % (Auto) % Neut % (Auto) % Lymph % (Auto) % Bullock % (Auto) % Eos % (Auto) % Baso % (Auto) % Neut # (Auto) (1.40-6.50) K/uL Lymph # (Auto) (1.20-3.40) K/uL [place] # (Auto) (0.11-0.59) K/uL Eos # (Auto) (0.00-0.50) K/uL Baso # (Auto) (0.00-0.20) K/uL Immature Gran # (Auto) (0.01-0.20) K/uL Polychromasia Sodium (136-145) mmol/L Potassium (3.5-5.1) mmol/L Chloride (98-107) mmol/L Carbon Dioxide (21-32) mmol/L Anion Gap (3-11) BUN (6-23) mg/dl Creatinine (0.6-1.4) mg/dl Est Cr Clr Drug Dosing ml/min eGFR BUN/Creatinine Ratio (10-20) Glucose (70-99(Fasting)) mg/dl Calcium (8.6-10.3) mg/dl Magnesium 2.0 (1.7-2.4) mg/dl Total Bilirubin (0.2-1.0) mg/dl AST (13-39) U/L ALT (7-52) U/L Alkaline Phosphatase (34-104) U/L Troponin I High Sens 38.7 H (0-20) pg/ml Total Protein (6.0-8.3) gm/dl Albumin (3.4-5.0) gm/dl Globulin (2.5-4.0) gm/dl Albumin/Globulin Ratio (0.9-2) Urine Color Urine Appearance (Clear) Urine pH (4.5-7.5) Ur Specific [place] (1.000-1.030) Urine Protein (Negative) Urine Glucose (UA) (Negative) Urine Ketones (Negative) Urine Blood (Negative) Urine Nitrite (Negative) Urine Bilirubin (Negative) Urine Urobilinogen (Negative) Ur Leukocyte Esterase (Negative) Urine WBC (Auto) (0-5) /hpf Urine RBC (Auto) (0-2) /hpf U Hyaline Cast (Auto) (0-2) /lpf U Epithel Cells (Auto) (0-2) /hpf Urine Bacteria (Auto) (None Seen) Adenovirus (PCR) (NotDetected) B. pertussis DNA (PCR) (NotDetected) B.parapertussis DNA PCR (NotDetected) C. pneumoniae DNA (PCR) (NotDetected) Coronavirus OC43 (PCR) (NotDetected) Coronavirus HKU1 (PCR) (NotDetected) Coronavirus 229E (PCR) (NotDetected) SARS-CoV-2 (PCR) (NotDetected) Coronavirus NL63 (PCR) (NotDetected) Human Metapneumovir PCR (NotDetected) Influenza Type A (PCR) (NotDetected) Influenza Type B (PCR) (NotDetected) M. pneumoniae (PCR) (NotDetected) Parainfluenza 1 (PCR) (NotDetected) Parainfluenza 2 (PCR) (NotDetected) Parainfluenza 3 (PCR) (NotDetected) Parainfluenza 4 (PCR) (NotDetected) RSV (PCR) (NotDetected) Entero/Rhino (PCR) (NotDetected) Administered Medications Discontinued Medications Ceftriaxone Sodium (Rocephin) 2,000 mg in 50 mls @ 100 mls/hr IV NOW STA Stop: 03/31/24 01:00 Last Infusion: 03/31/24 01:12 Dose: Infused Documented By: Admin: 03/31/24 00:40 Dose: 100 mls/hr Documented By: CHUY Doxycycline Hyclate 100 mg/ (Dextrose) 100 mls @ 50 mls/hr IV NOW STA Stop: 03/31/24 02:30 Last Infusion: 03/31/24 03:31 Dose: Infused Documented By: Admin: 03/31/24 01:11 Dose: 50 mls/hr Documented By: CHUY Ioversol (Optiray 320 125ml) 117 ml IV ONCE ONE Stop: 03/31/24 01:59 Last Admin: 03/31/24 01:59 Dose: 117 ml Documented By: [facility] Imaging Data Radiologist's Impression: Chest CTA 03/31/24 01:00 Exam(s): CTA CHEST IV Amt: 117 cc opti 320 EXAM: CT Angiography Chest With Intravenous Contrast CLINICAL HISTORY: Reason for exam: pulm embolism, tachycardic, hypoxic. TECHNIQUE: Axial computed tomographic angiography images of the chest with intravenous contrast. CTDI is 11.87 mGy and DLP is 916.99 mGy-cm. Automated exposure control was utilized for the study. A dose lowering technique was utilized adhering to the principles of ALARA. MIP reconstructed images were created and reviewed. COMPARISON: No relevant prior studies available. FINDINGS: Pulmonary arteries: Unremarkable. No central pulmonary embolus. Aorta: No acute findings. No thoracic aortic aneurysm. Lungs: Patchy bilateral interstitial infiltrates with more confluent opacities in the lower lobes. There is a 2.8 x 1.9 cm area of nodularity seen within the left lower lobe. Diffuse changes COPD. Bilateral apical pleural scarring. Pleural space: Unremarkable. No significant effusion. No pneumothorax. Heart: Unremarkable. No cardiomegaly. No significant pericardial effusion. No evidence of RV dysfunction. Bones/joints: No acute fracture. No dislocation. Soft tissues: Unremarkable. Lymph nodes: Unremarkable. No enlarged lymph nodes. IMPRESSION: No pulmonary embolus Bibasilar predominant interstitial infiltrates more confluent opacity in the left lower lobe. While this may represent infection, underlying neoplasm cannot be entirely excluded. Recommend short interval follow-up CT to assess for resolution. Electronically signed by: Joseph Camarena MD 03/31/24 03:15 AM Discharge Plan Visit Data Chief Complaint: Cough Stated Complaint: Cough, Fever ED Provider: Lalo Bartlett Discharge Problem: Pneumonia, UTI (urinary tract infection), Fever, Acute confusion Patient Disposition: Admitted As Inpatient Discharge Instructions Interventions: ED Discharge Assessment Last Done: 03/31/24 04:15
[2024-03-31 00:34] LABS: Appearance Urine Cloudy (Clear); Bacteria Urine Automated 4+ (None Seen); Bilirubin Urine Negative (Negative); Blood Urine 2+ (Negative); Cast Urine Automated 0-2 /lpf (0-2); Color Urine Yellow; Epithelial Cell Urine Auto 0-2 /hpf (0-2); Glucose Urine UA Negative (Negative); Ketones Urine Trace (Negative); Leukocyte Esterase Urine 2+ (Negative); Nitrite Urine Positive (Negative); Protein Urine 1+ (Negative); Specific Gravity Urine 1.023 (1.000-1.030); Urobilinogen Urine Negative (Negative); WBC Urine Automated 21-50 /hpf (0-5); pH Urine 5.5 (4.5-7.5)
[2024-03-31] MEDS: cefTRIAXone SODIUM 2,000 MG/50 ML BAG IV STA (00:40)
[2024-03-31 01:01] LABS: Adenovirus PCR Not Detected (NotDetected); Bordetella parapertussis PCR Not Detected (NotDetected); Bordetella pertussis PCR Not Detected (NotDetected); Chlamydia pneumoniae PCR Not Detected (NotDetected); Coronavirus 229E PCR Not Detected (NotDetected); Coronavirus CoV-2 (COVID19)PCR Not Detected (NotDetected); Coronavirus HKU1 PCR Not Detected (NotDetected); Coronavirus NL63 PCR Not Detected (NotDetected); Coronavirus OC43PCR Not Detected (NotDetected); Human Metapneumovirus PCR Not Detected (NotDetected); Influenza A PCR Not Detected (NotDetected); Influenza B PCR Not Detected (NotDetected); Mycoplasma pneumoniae PCR Not Detected (NotDetected); Parainfluenza Virus 1 PCR Not Detected (NotDetected); Parainfluenza Virus 2 PCR Not Detected (NotDetected); Parainfluenza Virus 3 PCR Not Detected (NotDetected); Parainfluenza Virus 4 PCR Not Detected (NotDetected); Respiratory Syncytial VirusPCR Not Detected (NotDetected); Rhinovirus/Enterovirus PCR Not Detected (NotDetected)
[2024-03-31] MEDS: DOXYCYCLINE HYCLATE 100 MG in DEXTROSE 5% MINI-B 100 ML IV STA (01:11)
[2024-03-31] MEDS: OPTIRAY 320 125ml IV ONE (01:59)
[2024-03-31 02:08] LABS: Troponin I High Sensitivity 38.7 pg/ml (0-20)
--- NOTE | 2024-03-31 03:16 | CT Scan Report ---
Exam(s): CTA CHEST IV Amt: 117 cc opti 320 EXAM: CT Angiography Chest With Intravenous Contrast CLINICAL HISTORY: Reason for exam: pulm embolism, tachycardic, hypoxic. TECHNIQUE: Axial computed tomographic angiography images of the chest with intravenous contrast. CTDI is 11.87 mGy and DLP is 916.99 mGy-cm. Automated exposure control was utilized for the study. A dose lowering technique was utilized adhering to the principles of ALARA. MIP reconstructed images were created and reviewed. COMPARISON: No relevant prior studies available. FINDINGS: Pulmonary arteries: Unremarkable. No central pulmonary embolus. Aorta: No acute findings. No thoracic aortic aneurysm. Lungs: Patchy bilateral interstitial infiltrates with more confluent opacities in the lower lobes. There is a 2.8 x 1.9 cm area of nodularity seen within the left lower lobe. Diffuse changes COPD. Bilateral apical pleural scarring. Pleural space: Unremarkable. No significant effusion. No pneumothorax. Heart: Unremarkable. No cardiomegaly. No significant pericardial effusion. No evidence of RV dysfunction. Bones/joints: No acute fracture. No dislocation. Soft tissues: Unremarkable. Lymph nodes: Unremarkable. No enlarged lymph nodes. IMPRESSION: No pulmonary embolus Bibasilar predominant interstitial infiltrates more confluent opacity in the left lower lobe. While this may represent infection, underlying neoplasm cannot be entirely excluded. Recommend short interval follow-up CT to assess for resolution. Electronically signed by: Joseph Camarena MD 03/31/24 03:15 AM
--- OUTSIDE RECORDS SUMMARY | 2024-03-31 04:09 | External Medical Summary | Continuity of Care Document ---
Author Name Unknown Organization [facility] Address [address] [place] [id number] Care Team Providers Care Director Of Marketing [employer] Name Role Phone Helder Meyer Primary Care Physician [phone] [id number] Date(s): 03/18/24 - 03/28/[address] [phone] Encounter Diagnosis Fall from standing(Discharge Diagnosis) - 03/18/24 Occipital bone fracture(Discharge Diagnosis) - 03/18/24 Fracture of rib of right side(Discharge Diagnosis) - 03/19/24 Encounter for geriatric assessment(Discharge Diagnosis) - 03/20/24 Recurrent falls(Discharge Diagnosis) - 03/20/24 Frailty(Discharge Diagnosis) - 03/20/24 Caregiver burden(Discharge Diagnosis) - 03/20/24 Polypharmacy(Discharge Diagnosis) - 03/20/24 Chronic pain(Discharge Diagnosis) - 03/20/24 Gait disorder(Discharge Diagnosis) - 03/20/24 Discharge Disposition: Other Type Healthcare Facility Attending Physician: MD Zamudio Scott B Admitting Physician: MD Zamudio Scott B Referring Physician: MD Gannon Brian D Allergies, Adverse Reactions, Alerts No Known Allergies Functional Status 03/28/24 History of Fall in Last 3 Months Ramsey Y es Presence of Secondary Diagnosis Ramsey Ye s Use of Ambulatory Aid Ramsey Crutches/can e/walker IV/Heparin Lock Fall Risk Ramsey Yes Gait/Transferring Fall Risk Ramsey Normal /bedrest/immobile Mental Status Fall Risk Ramsey Oriented t o own ability Ramsey Fall Risk Score 75 Ramsey Fall Risk High risk Speech Pattern Clear 03/27/24 Neurological Symptoms Weakness ADLs Moderate assistance Facial Symmetry Symmetric Gait Unsteady Swallowing Difficulty Liquids, thin Level of Consciousness Neuro Alert Hallucinations Present None Medications Aspir 81 oral delayed release tablet Start: 03/19/24 10:30:00 AM EDT, 1 tab, PO, Daily Start Date: 03/19/24 Status: Ordered clonazePAM Start: 03/22/24 12:33:00 PM EDT, 0.5 mg =, PO, bid Start Date: 03/22/24 Status: Ordered Debrox Start: 03/22/24 12:34:00 PM EDT, 5 drop, right ear, bid Start Date: 03/22/24 Status: Ordered desonide 0.05% topical cream Start: 07/09/15 9:59:00 AM EST, 1 appl, topical, Daily, Disp# 30 g, Refills: 2, To inflamed red scaly areas of face daily as needed, Pharmacy: [id number] Start Date: 07/09/15 Status: Ordered DULoxetine 60 mg oral delayed release capsule TAKE 1 CAPSULE BY MOUTH ONCE DAILY IN THE MORNING Start Date: 03/19/24 Status: Ordered Fish Oil Start: 02/15/11 1:12:00 PM EDT, 1,200 mg =, PO, bid, cap Start Date: 02/15/11 Status: Ordered ICaps AREDS oral tablet Start: 03/19/24 10:28:00 AM EDT, 1 tab, PO, Daily Start Date: 03/19/24 Status: Ordered Lyrica 150 mg oral capsule Start: 04/22/13 4:19:00 PM EDT, 1 cap, PO, tid Start Date: 04/22/13 Status: Ordered Multiple Vitamins oral tablet Start: 02/15/11 1:12:00 PM EDT, 1 tab, PO, Daily Start Date: 02/15/11 Status: Ordered oxyCODONE 5 mg oral tablet Start: 03/28/24 6:28:00 AM EDT, 2.5 mg =, PO, tid, Refills: 0, give doses at 7AM, 1PM and 7PM Start Date: 03/28/24 Status: Ordered sildenafil 50 mg oral tablet Start: 03/18/24 9:46:00 PM EDT, 1 tab, PO, Daily, Note to Pharmacy: on med list; Patient denies taking "in years", PRN: as needed for erectile dysfunction Start Date: 03/18/24 Status: Ordered simvastatin 80 mg oral tablet Start: 02/15/11 1:12:00 PM EDT, 1 tab, PO, qhs Start Date: 02/15/11 Status: Ordered Tylenol 500 mg oral tablet Start: 03/22/24 12:33:00 PM EDT, 2 tab, PO, q8h Start Date: 03/22/24 Status: Ordered Mental Status 03/27/24 Primary Language Surinamese Problem List Condition Confirmation Course Effective Dates Status Health Status Informant ACTINIC KERATOSIS Confirmed Active Skin cancer, 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 Hx of skin cancer, basal cell 1 Confirmed Active Hypercholesterolemia Confirmed Active CA skin, basal cell Confirmed Active Pain Confirmed Active Seborrhea Confirmed Active 1right cheek bcc Diagnosis Diagnosis Type Effective Dates Health Status Clinical Service Informant Fracture of rib of right side Discharge Diagnosis 03/19/24 Non-Specified Fall from standing Discharge Diagnosis 03/18/24 Non-Specified Occipital bone fracture Discharge Diagnosis 03/18/24 Non-Specified Encounter for geriatric assessment Discharge Diagnosis 03/20/24 Non-Specified Recurrent falls Discharge Diagnosis 03/20/24 Non-Specified Polypharmacy Discharge Diagnosis 03/20/24 Non-Specified Chronic pain Discharge Diagnosis 03/20/24 Non-Specified Frailty Discharge Diagnosis 03/20/24 Non-Specified Caregiver burden Discharge Diagnosis 03/20/24 Non-Specified Gait disorder Discharge Diagnosis 03/20/24 Non-Specified Procedures Procedure Date Related Diagnosis Body Site Status Shave biopsy and cauterization of skin 01/07/15 Completed Electrodesiccation with curettage 1 04/23/14 Completed Shave biopsy of skin 02/15/11 Comp leted Cholecystectomy Completed 1shave biopsy sent Results Laboratory List Name Date Complete Blood Count (CBC w Platelets) 1 Magnesium Level 03/27/24 Nephrology Panel 03/27/24 Complete Blood Count (CBC w Platelets) 1 Magnesium Level 03/26/24 Nephrology Panel 03/26/24 Complete Blood Count (CBC w Platelets) Magnesium Level 03/25/24 Nephrology Panel 03/25/24 Urine Analysis w/ Reflexed Microscopic. (Urinalysis w/ Reflexed Microscopic.) 03/18/24 Prothrombin Time w/ INR (PT/INR) 03/18/24 Complete Blood Count w Differential (CBC w Platelets and Diff) 03/18/24 Comprehensive Metabolic Panel (CMP) 03/18 Most recent to oldest [Reference Range]: 1 2 3 eGFR CKD-EPI [>60 mL/min/1.73 m2] 85 mL/min/1.73 m2 (03/27/24 7:07 AM) 83 mL/min/1.73 m2 (03/26/24 6:13 AM) 83 mL/min/1.73 m2 (03/25/24 6:58 AM) Estimated CrCl 66.90 mL/min (03/27/24 7:49 AM) 62.92 mL/min (03/26/24 7:14 AM) 61.46 mL/min (03/25/24 7:52 AM) MPV [9.0-12.2 fL] 10.2 fL (03/27/24 7:07 AM) 10.9 fL (03/26/24 6:13 AM) 10.8 fL (03/25/24 6:58 AM) Immature Gran% 0.6 % (03/18/24 9:27 PM) Neut% 66.3 % (03/18/24 9:27 PM) Lymph% 17.1 % (03/18/24 9:27 PM) [place]% 13.3 % (03/18/24 9:27 PM) Baso% 0.7 % (03/18/24 9:27 PM) Eos% 2.0 % (03/18/24 9:27 PM) Immat Gran, Abs [0-0.4 K/uL] 0.06 K/uL (03/18/24 9:27 PM) Neut, Abs [2.0-7.7 K/uL] 6.45 K/uL (03/18/24 9:27 PM) Lymph, Abs [1.0-3.4 K/uL] 1.66 K/uL (03/18/24 9:27 PM) [place], Abs [0-1.0 K/uL] 1.29 K/uL *HI* (03/18/24 9:27 PM) Baso, Abs [0-0.1 K/uL] 0.07 K/uL (03/18/24 9:27 PM) Eos, Abs [0-0.5 K/uL] 0.19 K/uL (03/18/24 9:27 PM) Type of Diff: AUTO (03/18/24 9: PM) RDW [11.5-14.2 %] 15.8 % *HI* (03/27/24 7:07 AM) 16.0 % *HI* (03/26/24 6:13 AM) 16.4 % *HI* (03/25/24 6:58 AM) Squamous Epithelial Cells (u) NONE (03/18/24 11:19 PM) Mucous (u) FEW (03/18/24 11:19 PM) Anion Gap [5-14 mmol/L] 11 mmol/L (03/27/24 7:07 AM) 11 mmol/L (03/26/24 6:13 AM) 11 mmol/L (03/25/24 6:58 AM) Alb [3.5-5.2 g/dL] 3.4 g/dL *LOW* (03/27/24 7:07 AM) 3.7 g/dL (03/26/24 6:13 AM) 3.6 g/dL (03/25/24 6:58 AM) Alk Phos [40-130 unit/L] 101 unit/L 1 (03/18/24 9:27 PM) ALT [0-41 unit/L] 15 unit/L (03/18/24 9: PM) AST [0-40 unit/L] 20 unit/L (03/18/24 9: PM) Bact (u) [NONE-NONE] FEW *Abnormal* (03/18/24 11:19 PM) Bili (u) [NEG] NEGATIVE 2 (03/18/24 11:19 PM) BUN [6-23 mg/dL] 29 mg/dL *HI* (03/27/24 7:07 AM) 33 mg/dL *HI* (03/26/24 6:13 AM) 33 mg/dL *HI* (03/25/24 6:58 AM) Ca [8.4-10.2 mg/dL] 9.3 mg/dL (03/27/24 7:07 AM) 9.7 mg/dL (03/26/24 6:13 AM) 9.5 mg/dL (03/25/24 6:58 AM) Cl- [98-107 mmol/L] 103 mmol/L (03/27/24 7:07 AM) 101 mmol/L (03/26/24 6:13 AM) 102 mmol/L (03/25/24 6:58 AM) HCO3 [22-29 mmol/L] 26 mmol/L (03/27/24 7:07 AM) 26 mmol/L (03/26/24 6:13 AM) 26 mmol/L (03/25/24 6:58 AM) Cret [0.70-1.30 mg/dL] 0.79 mg/dL (03/27/24 7:07 AM) 0.84 mg/dL (03/26/24 6:13 AM) 0.86 mg/dL (03/25/24 6:58 AM) Glu [74-109 mg/dL] 107 mg/dL 3 (03/27/24 7:07 AM) 109 mg/dL 4 (03/26/24 6:13 AM) 123 mg/dL 5 *HI* (03/25/24 6:58 AM) Hct [39-48 %] 37.2 % *LOW* (03/27/24 7:07 AM) 38.1 % *LOW* (03/26/24 6:13 AM) 38.1 % *LOW* (03/25/24 6:58 AM) Hgb [13.0-17.0 g/dL] 11.6 g/dL *LOW* (03/27/24 7:07 AM) 12.2 g/dL *LOW* (03/26/24 6:13 AM) 12.1 g/dL *LOW* (03/25/24 6:58 AM) INR [0.9-1.1] 1.1 6 (03/18/24 9:27 PM) K [3.5-5.1 mmol/L] 4.3 mmol/L (03/27/24 7:07 AM) 4.2 mmol/L (03/26/24 6:13 AM) 4.7 mmol/L (03/25/24 6:58 AM) Ketones [NEG mg/dL] NEGATIVE mg/dL (03/18/24 11:19 PM) Leuk Est [NEG] NEGATIVE 7 (03/18/24 11:19 PM) MCH [28-33 pg] 26.3 pg *LOW* (03/27/24 7:07 AM) 26.9 pg *LOW* (03/26/24 6:13 AM) 26.8 pg *LOW* (03/25/24 6:58 AM) MCHC [32-36 g/dL] 31.2 g/dL *LOW* (03/27/24 7:07 AM) 32.0 g/dL (03/26/24 6:13 AM) 31.8 g/dL *LOW* (03/25/24 6:58 AM) MCV [81-96 fL] 84.4 fL (03/27/24 7:07 AM) 84.1 fL (03/26/24 6:13 AM) 84.3 fL (03/25/24 6:58 AM) Mg [1.6-2.6 mg/dL] 2.3 mg/dL (03/27/24 7:07 AM) 2.3 mg/dL (03/26/24 6:13 AM) 2.3 mg/dL (03/25/24 6:58 AM) Na [136-145 mmol/L] 140 mmol/L (03/27/24 7:07 AM) 138 mmol/L (03/26/24 6:13 AM) 139 mmol/L (03/25/24 6:58 AM) Nitrite (u) [NEG] NEGATIVE 8 (03/18/24 11:19 PM) PO4 [2.5-4.5 mg/dL] 3.3 mg/dL (03/27/24 7:07 AM) 3.7 mg/dL (03/26/24 6:13 AM) 3.6 mg/dL (03/25/24 6:58 AM) Plts [150-350 K/uL] 288 K/uL (03/27/24 7:07 AM) 284 K/uL (03/26/24 6:13 AM) 270 K/uL (03/25/24 6:58 AM) PT [12.0-14.2 seconds] 14.5 seconds *HI* (03/18/24 9:27 PM) RBC [4.40-5.60 M/uL] 4.41 M/uL (03/27/24 7:07 AM) 4.53 M/uL (03/26/24 6:13 AM) 4.52 M/uL (03/25/24 6:58 AM) T Bili [0.0-1.2 mg/dL] 0.5 mg/dL (03/18/24 9:27 PM) Prot [6.4-8.3 g/dL] 7.2 g/dL (03/18/24 9:27 PM) Appear (u) CLEAR (03/18/24 11:19 PM) Color (u) YELLOW (03/18/24 11:19 PM) Glu (u) [NEG mg/dL] NEGATIVE mg/dL 9 (03/18/24 11:19 PM) Hgb (u) [NEG] NEGATIVE 10 (03/18/24 11:19 PM) pH (u) [5.0-8.0 unit] 7.0 unit (03/18/24 11:19 PM) Prot (u) [NEG mg/dL] 30 mg/dL *Abnormal* (03/18/24 11:19 PM) RBC (u) [0-4 /HPF] 0-4 /HPF (03/18/24 11:19 PM) Urobili [0.1-1.0 EU/dL] 2.0 EU/dL *HI* (03/18/24 11:19 PM) SG [1.005-1.030] 1.016 (03/18/24 11:19 PM) WBC (u) [0-4 /HPF] 0-4 /HPF (03/18/24 11:19 PM) WBC [4.0-10.4 K/uL] 9.68 K/uL (03/27/24 7:07 AM) 10.06 K/uL (03/26/24 6:13 AM) 12.20 K/uL *HI* (03/25/24 6:58 AM) 1Result Comment: Low levels of ALKP may indicate a deficiency in zinc, magnesium, or malnutritionbutcan also be an indicator of a rare genetic disease hypophosphatasia (HPP). 2Result Comment: POSSIBLE INTERFERING SUBSTANCE. ASCORBIC ACID DETECTED IN URINE. RESULTS MAY BEUNRELIABLE. 3Result Comment: ADA recommendation for FASTING Serum/Plasma Glucose: Normal: 70-100 mg/dL Prediabetes: 100-125 mg/dL Diabetes: 126 mg/dL or higher 4Result Comment: ADA recommendation for FASTING Serum/Plasma Glucose: Normal: 70-100 mg/dL Prediabetes: 100-125 mg/dL Diabetes: 126 mg/dL or higher 5Result Comment: ADA recommendation for FASTING Serum/Plasma Glucose: Normal: 70-100 mg/dL Prediabetes: 100-125 mg/dL Diabetes: 126 mg/dL or higher 6Result Comment: Suggested therapeutic range for low-intensity Coumadin therapy for venous thromboembolism is INR 2.0-3.0 (ex: atrial fibrillation, history of TIA/stroke). For high risk patients, the suggested therapeutic range is INR 2.5-3.5 (ex: mechanical prosthetic valves). 7Result Comment: POSSIBLE INTERFERING SUBSTANCE. ASCORBIC ACID DETECTED IN URINE. RESULTS MAY BEUNRELIABLE. 8Result Comment: POSSIBLE INTERFERING SUBSTANCE. ASCORBIC ACID DETECTED IN URINE. RESULTS MAY BEUNRELIABLE. 9Result Comment: POSSIBLE INTERFERING SUBSTANCE. ASCORBIC ACID DETECTED IN URINE. RESULTS MAY BEUNRELIABLE. 10Result Comment: POSSIBLE INTERFERING SUBSTANCE. ASCORBIC ACID DETECTED IN URINE. RESULTS MAY BEUNRELIABLE. Radiology Reports * Exam Date Time Procedure Performing Provider Status 03/21/24 3:31 PM XR Swallowing Function w/ Speech Betina Crowder; Final Notes: (XR Swallowing Function w/ Speech) Reason For Exam: dysphagia XR Swallowing Function w/ Speech EXAMINATION: Modified/video swallow study CLINICAL HISTORY: Dysphagia, clinical history of cough INDICATION: Evaluation of swallowing function COMPARISON: None TECHNIQUE: The study was performed in conjunction with the speech pathologist. The patient was evaluated underdynamic fluoroscopy, while utilizing several different consistencies of barium as well as differentfoods coated with barium. Please refer to speech pathologist's notes for specific scenario descriptions. Multiple cine runs were obtained and submitted for evaluation. The patient's ability to cooperate was adequate. FLUOROSCOPY TIME: 2.70 FINDINGS: There is appropriate bolus transfer from oral phase to cervical esophagus. There is persistent residue in the vallecula and piriform sinuses throughout the exam. There is normal synchronous contraction of the pharyngeal constrictor muscles. There was laryngeal penetration across almost all consistencies. Aspiration identified with scenario 1, 5 and 0/3. IMPRESSION: 1. Aspiration with multiple consistencies including thin, thick, diced fruit and puree with the tablet. Additional episodes of laryngeal penetration with remaining consistencies. 2. Persistent residue in the vallecula and piriform sinuses. 3. NOTE: Please see the associated note from Speech Pathology. LISETH Hanks RPA is the dictating Radiologist Motor Coach Driver. Dr. Derrell Burnham, the attending Radiologist, reviewed the images and discussed the interpretation with the dictating Radiologist Motor Coach Driver. Supervision Statement:I provided direct supervision and was physically present on-site and immediately available and interruptible to provide assistance and direction throughout the performance of this procedure." Workstation ID: [id number] Final Dictated by:MD Burnham Jacob A Dictated DT/TM:03/21/2024 5:00 Signed by:MD Burnham Jacob A Signed (Electronic Signature):03/21/2024 4:59 p * Exam Date Time Procedure Performing Provider Status 03/21/24 11:16 AM XR Chest 1 View Shani Crain; Final Notes: (XR Chest 1 View) Reason For Exam: cough XR Chest 1 View EXAMINATION: XR Chest 1 View CLINICAL HISTORY: cough COMPARISON: Chest CT and radiographs 03/18/2024 FINDINGS: Upright AP view of the chest. Unchanged cardiomediastinal silhouette and pulmonary vasculature. Biapical scarring. Emphysematous changes. Bibasal airspace opacities, not significantly changed. Pulmonary nodules are better seen on CT. No pleural effusion. No pneumothorax. Unchanged osseous structures. Right-sided rib fracture is better seen on prior CT. IMPRESSION: 1. Bibasilar airspace opacities, not significantly changed and likely aspiration/pneumonia. 2. Emphysematous changes. Dr. Efraín Landeros is the dictating resident. Finalized reports status indicates that the attending has reviewed the images and report, and agrees with the interpretation. Preliminary report status should be regarded as NOT interpreted by the attending radiologist. Workstation ID: [id number] Final Dictated by:DO Landeros Aivy Dictated DT/TM:03/21/2024 2:11 Resident:DO Landeros Aivy Signed by:DO Flores Rushi Signed (Electronic Signature):03/21/2024 2:10 p * Exam Date Time Procedure Performing Provider Status 03/18/24 11:[address] Spine Thoracic w/ Contrast Recon G Hailey weston; Final Notes: (CT Spine Thoracic w/ Contrast Recon) Reason For Exam: fall, occipital fx, completion scan CT Spine Thoracic w/ Contrast Recon EXAMINATION: CT Spine Lumbar w/ Contrast Recon, CT Spine Thoracic w/ Contrast Recon CLINICAL HISTORY: fall, occipital fx, completion scan COMPARISON: No direct comparison. TECHNIQUE: CT Spine Lumbar w/ Contrast Recon, CT Spine Thoracic w/ Contrast Recon. Coronal and sagittal reconstructions. DOSE: Total Reported Dose Length Product (DLP) = 470 mGy*cm FINDINGS: THORACIC SPINE: Alignment: Alignment is normal. Vertebrae: Normal vertebral body heights. No acute fracture. Paraspinal space: Unremarkable. Focused axial interbody analysis: Multilevel disc degenerative changes. LUMBAR SPINE: Alignment: Alignment is normal. Vertebrae: There are 5 nonrib-bearing lumbar vertebrae. Normal vertebral body heights. No acute fracture. Paraspinal space: Unremarkable. Visualized retroperitoneal: See separately dictated CT abdomen and pelvis. Focused axial interbody analysis: Multilevel disc degenerative changes. IMPRESSION: 1. No acute traumatic abnormality of the thoracic and lumbar spine. 2. Please see separately dictated CT chest, abdomen, and pelvis. Dr. Cash Hanks is the dictating resident. Finalized reports status indicates that the attending has reviewed the images and report, and agrees with the interpretation. Preliminary report status should be regarded as NOT interpreted by the attending radiologist. Workstation ID: [id number] Final Dictated by:DO Hanks Benjamin James Dictated DT/TM:03/19/2024 2:56 Resident:DO Hanks Benjamin James Signed by:DO Ryan Christian Signed (Electronic Signature):03/19/2024 2:55 a * Exam Date Time Procedure Performing Provider Status 03/18/24 11:[address] Spine Lumbar w/ Contrast Recon Hailey Holly; Final Notes: (CT Spine Lumbar w/ Contrast Recon) Reason For Exam: fall, occipital fx, completion scan CT Spine Lumbar w/ Contrast Recon EXAMINATION: CT Spine Lumbar w/ Contrast Recon, CT Spine Thoracic w/ Contrast Recon CLINICAL HISTORY: fall, occipital fx, completion scan COMPARISON: No direct comparison. TECHNIQUE: CT Spine Lumbar w/ Contrast Recon, CT Spine Thoracic w/ Contrast Recon. Coronal and sagittal reconstructions. DOSE: Total Reported Dose Length Product (DLP) = 470 mGy*cm FINDINGS: THORACIC SPINE: Alignment: Alignment is normal. Vertebrae: Normal vertebral body heights. No acute fracture. Paraspinal space: Unremarkable. Focused axial interbody analysis: Multilevel disc degenerative changes. LUMBAR SPINE: Alignment: Alignment is normal. Vertebrae: There are 5 nonrib-bearing lumbar vertebrae. Normal vertebral body heights. No acute fracture. Paraspinal space: Unremarkable. Visualized retroperitoneal: See separately dictated CT abdomen and pelvis. Focused axial interbody analysis: Multilevel disc degenerative changes. IMPRESSION: 1. No acute traumatic abnormality of the thoracic and lumbar spine. 2. Please see separately dictated CT chest, abdomen, and pelvis. Dr. Cash Hanks is the dictating resident. Finalized reports status indicates that the attending has reviewed the images and report, and agrees with the interpretation. Preliminary report status should be regarded as NOT interpreted by the attending radiologist. Workstation ID: [id number] Final Dictated by:DO Hanks Benjamin James Dictated DT/TM:03/19/2024 2:56 Resident:DO Hanks Benjamin James Signed by:DO Ryan Christian Signed (Electronic Signature):03/19/2024 2:55 a * Exam Date Time Procedure Performing Provider Status 03/18/24 11:[address] Abdomen and Pelvis w/ Contrast Hailey Holly; Final Notes: (CT Abdomen and Pelvis w/ Contrast) Reason For Exam: fall, occipital fx, completion scan CT Abdomen and Pelvis w/ Contrast EXAMINATION: CT Thorax w/ Contrast, CT Abdomen and Pelvis w/ Contrast CLINICAL HISTORY: fall, occipital fx, completion scan COMPARISON: None available. TECHNIQUE: Computed tomography of the chest, abdomen, and pelvis with contrast. Axial, coronal, and sagittal reconstructions. CONTRAST: Contrast Type (IV): Omnipaque 350 Contrast Volume (IV) in ml: 100.00 DOSE: Total Reported Dose Length Product (DLP) = 469.62 mGy.cm FINDINGS: CHEST Pleura and Lungs: Multiple pulmonary nodules throughout the lungs bilaterally, largest measuring 0.9 x 0.7 cm. Fat-containing lesions in the left lung base measuring 2.9 x 2.1 cm and 1.5 x 1.4 cm, hamartoma versus lipoma, benign. Consolidative opacity in the right lung base measuring 2.9 x 2.6 cm. P eribronchial thickening in the lower lobes bilaterally. Bilateral bronchiectasis. Moderate to severe emphysema. Scattered calcified granulomas. Biapical scarring. Central airways: Debris within the trachea. Lymph nodes: No lymphadenopathy. Thyroid and Mediastinum: Thyroid is normal. No mediastinal mass. Small hiatal hernia. Heart and Great vessels: Heart size is normal. Normal caliber of the great vessels. No pericardial effusion. Calcifications at the aortic annulus. ABDOMEN Liver, Gallbladder \\T\\ bile ducts: Diffuse hepatic steatosis. No focal hepatic lesion. Gallbladder is surgically absent. Intrahepatic and extra hepatic biliary dilatation, likely secondary to post cholecystectomy state/reservoir effect. Pancreas: Normal. Spleen: Small hypodensity in the inferior pole of the spleen, too small to characterize. Adrenals: Normal. Kidneys, collecting system and ureters: Symmetrically enhance. No hydroureteronephrosis. Numerous bilateral renal cysts, some of which are slightly higher attenuation for simple cysts and likely represent hemorrhagic/proteinaceous cyst. Retroperitoneum, lymph nodes, and vessels: No lymphadenopathy. Infrarenal fusiform abdominal aorticaneurysm measuring 5.0 x 4.9 cm. No prior imaging available to assess for stability. Diffuse atherosclerotic calcifications in the aorta and its branches. Celiac and SMA are patent. Bowel \\T\\ Mesentery: No bowel obstruction. No bowel wall thickening. No free air or free fluid. Diverticulosis without diverticulitis. Appendix is normal. Diffuse colonic stool burden. PELVIS Bladder: Unremarkable. Reproductive organs: Dystrophic calcifications in the prostate. Prostatomegaly. Extraperitoneal, lymph nodes, vessels: No lymphadenopathy. Atherosclerotic calcifications. Osseous and body wall: Mildly displaced fracture posterior right seventh rib. IMPRESSION: 1. Acute mildly displaced fracture of the posterior right seventh rib. 2. No acute traumatic abnormality of the abdomen and pelvis. 3. Multiple pulmonary nodules with small consolidative component in the right lung base, findings are indeterminate and may be infectious/inflammatory but cannot definitively rule out malignancy. Recommend comparison with prior imaging if available and interventional pulmonology consult. 4. Infrarenal fusiform abdominal aortic aneurysm measuring up to 5.0 cm. Recommend comparison with prior imaging if available. [place] Act 112: This study does not meet the requirements of [place] Act 112. Dr. Cash Hanks is the dictating resident. Finalized reports status indicates that the attending has reviewed the images and report, and agrees with the interpretation. Preliminary report status should be regarded as NOT interpreted by the attending radiologist. Workstation ID: [id number] Final Dictated by:DO Hanks Benjamin James Dictated DT/TM:03/19/2024 2:54 Resident:DO Hanks Benjamin James Signed by:DO Ryan Christian Signed (Electronic Signature):03/19/2024 2:52 a * Exam Date Time Procedure Performing Provider Status 03/18/24 11:[address] Thorax w/ Contrast Frank Maya; Final Notes: (CT Thorax w/ Contrast) Reason For Exam: fall, occipital fx, completion scan CT Thorax w/ Contrast EXAMINATION: CT Thorax w/ Contrast, CT Abdomen and Pelvis w/ Contrast CLINICAL HISTORY: fall, occipital fx, completion scan COMPARISON: None available. TECHNIQUE: Computed tomography of the chest, abdomen, and pelvis with contrast. Axial, coronal, and sagittal reconstructions. CONTRAST: Contrast Type (IV): Omnipaque 350 Contrast Volume (IV) in ml: 100.00 DOSE: Total Reported Dose Length Product (DLP) = 469.62 mGy.cm FINDINGS: CHEST Pleura and Lungs: Multiple pulmonary nodules throughout the lungs bilaterally, largest measuring 0.9 x 0.7 cm. Fat-containing lesions in the left lung base measuring 2.9 x 2.1 cm and 1.5 x 1.4 cm, hamartoma versus lipoma, benign. Consolidative opacity in the right lung base measuring 2.9 x 2.6 cm. P eribronchial thickening in the lower lobes bilaterally. Bilateral bronchiectasis. Moderate to severe emphysema. Scattered calcified granulomas. Biapical scarring. Central airways: Debris within the trachea. Lymph nodes: No lymphadenopathy. Thyroid and Mediastinum: Thyroid is normal. No mediastinal mass. Small hiatal hernia. Heart and Great vessels: Heart size is normal. Normal caliber of the great vessels. No pericardial effusion. Calcifications at the aortic annulus. ABDOMEN Liver, Gallbladder \\T\\ bile ducts: Diffuse hepatic steatosis. No focal hepatic lesion. Gallbladder is surgically absent. Intrahepatic and extra hepatic biliary dilatation, likely secondary to post cholecystectomy state/reservoir effect. Pancreas: Normal. Spleen: Small hypodensity in the inferior pole of the spleen, too small to characterize. Adrenals: Normal. Kidneys, collecting system and ureters: Symmetrically enhance. No hydroureteronephrosis. Numerous bilateral renal cysts, some of which are slightly higher attenuation for simple cysts and likely represent hemorrhagic/proteinaceous cyst. Retroperitoneum, lymph nodes, and vessels: No lymphadenopathy. Infrarenal fusiform abdominal aorticaneurysm measuring 5.0 x 4.9 cm. No prior imaging available to assess for stability. Diffuse atherosclerotic calcifications in the aorta and its branches. Celiac and SMA are patent. Bowel \\T\\ Mesentery: No bowel obstruction. No bowel wall thickening. No free air or free fluid. Diverticulosis without diverticulitis. Appendix is normal. Diffuse colonic stool burden. PELVIS Bladder: Unremarkable. Reproductive organs: Dystrophic calcifications in the prostate. Prostatomegaly. Extraperitoneal, lymph nodes, vessels: No lymphadenopathy. Atherosclerotic calcifications. Osseous and body wall: Mildly displaced fracture posterior right seventh rib. IMPRESSION: 1. Acute mildly displaced fracture of the posterior right seventh rib. 2. No acute traumatic abnormality of the abdomen and pelvis. 3. Multiple pulmonary nodules with small consolidative component in the right lung base, findings are indeterminate and may be infectious/inflammatory but cannot definitively rule out malignancy. Recommend comparison with prior imaging if available and interventional pulmonology consult. 4. Infrarenal fusiform abdominal aortic aneurysm measuring up to 5.0 cm. Recommend comparison with prior imaging if available. [place] Act 112: This study does not meet the requirements of [place] Act 112. Dr. Cash Hanks is the dictating resident. Finalized reports status indicates that the attending has reviewed the images and report, and agrees with the interpretation. Preliminary report status should be regarded as NOT interpreted by the attending radiologist. Workstation ID: [id number] Final Dictated by:DO Hanks Benjamin James Dictated DT/TM:03/19/2024 2:54 Resident:DO Hanks Benjamin James Signed by:DO Ryan Christian Signed (Electronic Signature):03/19/2024 2:52 a * Exam Date Time Procedure Performing Provider Status 03/18/24 9:[address] Head Consult Joseph Pratt; Final Notes: (OO CT Head Consult) Reason For Exam: fall OO CT Head Consult EXAMINATION: OO CT Head Consult, OO CT Spine Cervical Consult CLINICAL HISTORY: fall COMPARISON: None FINDINGS: BRAIN: Cerebral parenchyma:[There is generalized prominence of convexity sulci and ventricular system. There is approximately 4 to 5 mm thick CSF hygroma in the right frontal region without any significant mass effect or midline shift. Attenuation of the brain parenchyma is normal without evidence for mass, hemorrhage, or midline shift..] Ventricles: [The size and configuration of the ventricles and sulci is normal for age.] Posterior Fossa: [The fourth ventricle is in the midline. The posterior fossa structures including the cerebellum, salty, medulla and cervicomedullary junction are unremarkable.] Calvarium: [7.5 mm thick scalp hematoma is noted over the left parieto-occipital region. There is nondisplaced fracture of the left occipital bone extending toward the base of the skull. There is no evidence of intracranial hemorrhage noted.] Visualized paranasal sinuses/mastoids: [The visualized paranasal sinuses and mastoid air cells are clear. ] CERVICAL SPINE: Alignment: [Cervical spine shows normal alignment. ] Vertebrae: [Cervical vertebrae show normal bone density and height. There is no evidence of fracture or compression seen. There are degenerative changes commensurate with age.] Pre-vertebral space: [Pre and para spinal soft tissues are normal. ] IMPRESSION: 1. Nondisplaced fracture of the left occipital bone extending towards base of the skull. 2. 7.5 mm thick left parietal occipital scalp hematoma. 3. No acute intracranial pathology noted. 4. No acute osseous injury to cervical spine. Workstation ID: [id number] Final Dictated by:MD Cunha Sangam G Dictated DT/TM:03/18/2024 9:27 Signed by:MD Cunha Sangam G Signed (Electronic Signature):03/18/2024 9:26 p * Exam Date Time Procedure Performing Provider Status 03/18/24 9:[address] Spine Cervical Consult Anuja Pratt; Final Notes: (OO CT Spine Cervical Consult) Reason For Exam: fallm, occipital fx OO CT Spine Cervical Consult EXAMINATION: OO CT Head Consult, OO CT Spine Cervical Consult CLINICAL HISTORY: fall COMPARISON: None FINDINGS: BRAIN: Cerebral parenchyma:[There is generalized prominence of convexity sulci and ventricular system. There is approximately 4 to 5 mm thick CSF hygroma in the right frontal region without any significant mass effect or midline shift. Attenuation of the brain parenchyma is normal without evidence for mass, hemorrhage, or midline shift..] Ventricles: [The size and configuration of the ventricles and sulci is normal for age.] Posterior Fossa: [The fourth ventricle is in the midline. The posterior fossa structures including the cerebellum, salty, medulla and cervicomedullary junction are unremarkable.] Calvarium: [7.5 mm thick scalp hematoma is noted over the left parieto-occipital region. There is nondisplaced fracture of the left occipital bone extending toward the base of the skull. There is no evidence of intracranial hemorrhage noted.] Visualized paranasal sinuses/mastoids: [The visualized paranasal sinuses and mastoid air cells are clear. ] CERVICAL SPINE: Alignment: [Cervical spine shows normal alignment. ] Vertebrae: [Cervical vertebrae show normal bone density and height. There is no evidence of fracture or compression seen. There are degenerative changes commensurate with age.] Pre-vertebral space: [Pre and para spinal soft tissues are normal. ] IMPRESSION: 1. Nondisplaced fracture of the left occipital bone extending towards base of the skull. 2. 7.5 mm thick left parietal occipital scalp hematoma. 3. No acute intracranial pathology noted. 4. No acute osseous injury to cervical spine. Workstation ID: [id number] Final Dictated by:MD Cunha Sangam G Dictated DT/TM:03/18/2024 9:27 Signed by:MD Cunha Sangam G Signed (Electronic Signature):03/18/2024 9:26 p * Exam Date Time Procedure Performing Provider Status 03/18/24 9:08 PM OO XR Chest Consult Haja Gutierrez; Final Notes: (OO XR Chest Consult) Reason For Exam: XR chest, fall OO XR Chest Consult EXAMINATION: AP portable erect chest radiograph performed at [facility] on 03/18/2024. CLINICAL HISTORY: XR chest, fall COMPARISON: None FINDINGS: Mild hypoinflation with elevation of left hemidiaphragm. The heart is normal in size, partially obscured by the left hemidiaphragm. The mediastinum is not widened. Normal vasculature. Emphysematous changes with scarring towards both apices. Atelectasis at both bases. No asymmetric parenchymal opacity to suggest contusion or pneumonia. No pneumothorax or subcutaneous emphysema. No displaced rib fractures. Degenerative changes of the spine. IMPRESSION: Underinflation and emphysematous changes. No acute finding. Workstation ID: [id number] Final Dictated by:MD Hernandez Pamela L Dictated DT/TM:03/18/2024 9:17 Signed by:MD Hernandez Pamela L Signed (Electronic Signature):03/18/2024 9:16 p Vital Signs Most recent to oldest [Reference Range]: 1 2 3 Height 178 cm (03/18/24 8:53 PM) Patient Weight 67.7 kg (03/28/24 4:12 AM) 69.5 kg (03/27/24 4:31 AM) 70.2 kg (03/26/24 3:55 AM) Body Mass Index 23.86 kg/m2 (03/18/24 8:53 PM) Temperature [36.5-37.9 DegC] 36 DegC *LOW* (03/28/24 3:54 AM) 36.3 DegC *LOW* (03/27/24 7:29 PM) 36.2 DegC *LOW* (03/27/24 11:14 AM) Heart Rate 60 bpm (03/28/24 3:54 AM) 82 bpm (03/27/24 7:29 PM) 77 bpm (03/27/24 11:14 AM) Respiratory Rate 17 br/min (03/28/24 3:54 AM) 18 br/min (03/27/24 7:29 PM) 19 br/min (03/27/24 4:21 PM) Blood Pressure 160/79mmHg (03/28/24 3:54 AM) 144/88mmHg (03/27/24 7:29 PM) 129/65mmHg (03/27/24 11:14 AM) Mean Blood Pressure 101 mmHg (03/28/24 3:54 AM) 102 mmHg (03/27/24 7:29 PM) 81 mmHg (03/27/24 11:14 AM) Cuff Pulse Pressure 81 mmHg (03/28/24 3:54 AM) 56 mmHg (03/27/24 7:29 PM) 64 mmHg (03/27/24 11:14 AM) BP Location # 1 Left Arm (03/28/24 3:54 AM) Left Arm (03/27/24 7:29 PM) Right Arm (03/27/24 11:14 AM) Social History Social History Type Response Smoking Status Never smoked cigaret gage Sex Male Sex Representation Male (finding) Cardiology * Contributor_system, MUSE01: VERIFY, PERFORM Event Display: EKG Authored Date: Please click on link to see image. History and physical note * MD Kerns Joshua S: MODIFY MD Kerns Joshua S: MODIFY, MODIFY, PERFORM, MODIFY, MODIFY, MODIFY, MODIFY, MODIFY Event Display: H&P Authored Date: HISTORY AND PHYSICAL Name: JEN JEFFREY Patient Number: [id number] : 1935 Date of Service: 03/19/2024 Surgical Hospital Day/Procedure: No procedures found Chief Complaint: frequent falls History of Present Illness: This is an 88 year old male with a history of chronic arthritic pain, orthostatic hypotension, Himjspz-Yadsg-Thjmo disease, who presented as a transfer from a referring hospital for evaluation of an occipital skull fracture in the setting of recurrent falls. The patient states he was visiting his brother in November in [place] and since returning, he has had several falls at his home, increasing in frequency. He notes most recently he fell on 03/17 and 03/18 from standing. He has hit his head almost every fall. He states he simply loses his balance which he attributes to pain in his feet from Vlixszm-Kuipo-Oqdkn disease and shuffling gait that he notes his outpatient neurologist evaluates him for. He denies any presyncopal symptoms. During his most recent fall, he was in the kitchen sorting his pills for the week when he lost balance and struck the back of his head possibly on the oven handle or the counter. He denied loss of consciousness. The referring hospital noted a large bruise at the base of his skull, lanier sign behind the left ear, abrasion to the nose, ecchymosis to the left cheek, as well as scattered ecchymosis in various stages of healing throughout his extremities. Their CT head and c-spine imaging revealed an occipitalskull fracture with overlying scalp hematoma. Their labs were notable for normal WBC, hgb 11.9, cqq318, Cr 1.07, normal LFTs. The patient primarily complains of head pain on my evaluation but also notes his chronic foot pain has been intermittently flaring up. The patient lives alone in a senior apartment complex called [facility] in [place], [place]. He notes he had told his neurologist about these falls and was in the process of getting PT/OT set up. The patient's daughter was at bedside with him and noted her concerns about him returning to his home alone. Review Of Systems: Complete 14 point review of systems is negative except for what is stated in theH&P Past Medical History: microcytic anemia, anxiety, orthostatic hypotension, mitral regurgitation, erectile dysfunction, carotid artery stenosis, bradycardia, Otuemls-Myimw-Vruga disease, frequent falls, peripheral vascular disease, TB (2012), sick sinus syndrome, first degree AV block, dysphagia, aor tic stenosis (unknown severity), intermittent urinary incontinence, sleep apnea Surgical History: Procedure Procedure Date Comments Cholecystectomy Shave biopsy and cauterization of skin 01/07/2015 Electrodesiccation with curettage 04/23/2014 - shave biopsy sent Shave biopsy of skin 02/15/2011 Moh's surgery for BCC: right ear, chin, left jaw Lumbar discectomy Family History: mother w Alzheimer's and breast cancer, father w/ CAD/FL, brother w/ CAD/FL/CABG/stroke Social History: lives alone at [facility], denies any substance use Allergies and Sensitivities: NKA Current Home Meds: (Last Updated 03/18 21:46) cloNAZepam (clonazepam 1 mg oral tablet) 1mg in AM and 0.5mg at 11 AM and 3 PM desonide topical (desonide 0.05% topical cream) 1 appl topical Daily To inflamed red scaly areas offace daily as needed ibuprofen (ibuprofen 200 mg oral tablet) 200 mg PO tid prn - G Sechrist 04/23 09:48 multivitamin (Multiple Vitamins oral tablet) 1 tab PO Daily omega-3 polyunsaturated fatty acids (omega-3 polyunsaturated fatty acids 500 mg oral capsule) omega-3 polyunsaturated fatty acids (Fish Oil) 1,200 mg PO bid pramipexole (pramipexole 0.25 mg oral tablet) 0.125 mg PO bid pregabalin (Lyrica 150 mg oral capsule) 150 mg PO tid sildenafil (sildenafil 50 mg oral tablet) 50 mg PO Daily PRN: as needed for erectile dysfunction simvastatin (simvastatin 80 mg oral tablet) 1 tab PO qhs tramadol (tramadol 50 mg oral tablet) 100 mg PO tid PRN: as needed for pain Vitals: Last Updated 03/18/24 22:11 Weights: Last Updated 03/18/24 20:53 Date Temp Pulse BP RR SpO2 FIO2 Date Wt(kg) Wt(lb) 03/18 22:11 94 03/18 20:53 75.6 166 03/18 22:00 37.4 53 164/76 18 92 03/18 20:53 75.6 166 03/18 21:42 175/92 03/18 21:41 37.1 60 169/ 18 95 03/18 20:53 36.4 58 159/85 18 99 24 Hr Tmax: 37.4 at 03/18 22:00 Initial Wt: 03/18 75.6 kg 166 lb Physical Exam: General: resting comfortably in no apparent distress HEENT: normocephalic, posterior scalp hematoma and ecchymosis, very mild tenderness to palpation, EOMI, PERRL, left cheek nontender ecchymosis, nares patent and without blood, MMM, no blood in mouth,intact dentition, hearing intact to room conversation Neck: trachea midline, no c-spine tenderness to palpation or with range of motion x4, supple, posterior neck ecchymosis Heart: regular rate and rhythm, well perfused and warm extremities Chest: clear to auscultation bilaterally, nonlabored breathing on room air, symmetric chest rise, no chest wall tenderness Abdomen: soft, nontender, nondistended, no overlying abrasions/ecchymosis Pelvis: stable, mild bilateral hip tenderness Back: no midline T/L spine tenderness, no abrasions/ecchymosis Extremity: warm and well perfused, no overt deformities of any extremity, no abrasions or ecchymosis Neuro: alert and oriented x3, cranial nerves intact, no focal deficits appreciated, 5/5 strength all extremities, sensation intact to light touch throughout, normal attention, gait deferred Skin: scattered nontender ecchymosis on upper extremities Most Recent 24 Hour CBC/BMP Results CBC: on 03/18/2024 21:27 CMP: on 03/18/2024 21:27 11.4 140 103 19 9.7 181 98 36.5 4.0 27 0.83 Abs Neut = 6.5 Ca = 9.0 Most Recent 24 Hour Labs: 03/18/242208 Estimated CrCl 63.68 03/18/242126 MCH 26.8 L MCHC 31.2 L MCV 85.9 RBC 4.25 L MPV 10.6 Immature Gran% 0.6 Neut% 66.3 Lymph% 17.1 [place]% 13.3 Baso% 0.7 Eos% 2.0 Immat Gran, Abs 0.06 Lymph, Abs 1.66 [place], Abs 1.29 H Baso, Abs 0.07 Eos, Abs 0.19 Type of Diff: See Flowsheet RDW 16.2 H Anion Gap 10 eGFR CKD-EPI 84 INR 1.1 PT 14.5 H Alk Phos 101 ALT 15 AST 20 T Bili 0.5 Alb 3.8 Prot 7.2 Studies: Pending or Completed in the Last [address] Abdomen and Pelvis w/ Contrast Ordered CT Thorax w/ Contrast Ordered CT Spine Thoracic w/ Contrast Recon Ordered CT Spine Lumbar w/ Contrast Recon Ordered OO CT Spine Cervical Consult Completed OO XR Chest Consult Completed OO CT Head Consult Completed ASSESSMENT: This is an 88 year old male with a history of chronic arthritic pain, orthostatic hypotension, Brvwwks-Rjscj-Mhzho disease, who presented as a transfer from a referring hospital for evaluation of an occipital skull fracture in the setting of recurrent falls. Completion imaging notable for a right posterior 7th rib fracture that is nontender on exam. Admitted for observation. 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, arthritis - cont home tramadol Hx anxiety - hold clonazepam in light of frequent falling though may need to re-add given chronic benzo dependence - cont home duloxetine - geriatrics c/s 03/19 to help navigate medications Hx shuffling gait (per patient description) - follows w/ neurology (no records in our system) - not currently on any neurology specific meds - PT/OT ordered Reported hx JAMES - does not use CPAP Trauma/MSK Occipital skull fx - NSGY: no intervention indicated, outpatient f/u PRN Posterior right 7th rib fracture, minimally displaced - completely asymptomatic - ISB (currently able to pull 2000mL)/pulm toilet C/T/L spines cleared PT/OT ordered Geriatrics c/s Pulm No acute issues, satting well on room air Hx COPD w emphysema - no substance use hx - no home O2 requirement - goal O2 > 88% Pulm nodules seen on CT Chest - close outpatient f/u CV Hemodynamically stable since arrival Hx aortic stenosis, mitral regurg - unknown last TTE (no records in our system) - follows w outpatient Cards Hx orthostatic hypotension - will check a set 03/19 AM Hx HLD - cont home statin Infrarenal AAA seen on CT AP - asymptomatic - no prior imaging available - will need close PCP f/u GI Diet:NPO pending CT finalization Bowel regimen: Senna S BID Renal/ IVF @ 100 Continue to monitor I and Os Monitor Electrolytes for K>4, Ph>2.5, Mg>2 Heme Mild chronic microcytic anemia - Monitor daily CBC ID No leukocytosis No antibiotics indicated Endo No acute issues Ppx VTE:Lovenox 30 bid GI: not indicated Dispo Floor Teaching Physician Attestation: I saw and evaluated the patient with the resident team. I have reviewed the above note and the findings have been confirmed. I agree with the assessment and plan as documented and amended above. -Ephraim Kerns MD Electronic Signature on File Electronically Reviewed/Signed by: Phyllis Vazquez MD Author Signature Dt/Tm:03/19/2024 01:00 AM Resident Division of General Surgery Electronically Reviewed/Signed by: Phyllis Vazquez MD Cosigner Signature Dt/Tm: 03/19/2024 01:15 AM Resident Division of General Surgery Electronically Reviewed/Signed by: Phyllis Vazquez MD Cosigner Signature Dt/Tm: 03/19/2024 05:37 AM Resident Division of General Surgery Electronically Reviewed/Signed by: MD Lencho Neriigner Signature Dt/Tm: 03/19/2024 11:21 AM aircraft servicer Division of Trauma, Acute Care & Critical Care Surgery [address] [place] [address] [place] Geriatrics Consult * MD Cely, Beverly Michaud: PERFORM, MODIFY, MODIFY Event Display: Geriatrics Consult Authored Date: [id number] M's ASSESSMENT/RECOMMENDATIONS: Jen Nunez is an 88y/o man who lives alone in a senior apartment complex independent of all I/BADLs with significant PMH of Lbjrfmd-Luxji-Wqtbo Syndrome, chronic pain, gait d/o, and recurrent falls admitted s/p a fall at home where he lost his balance. He sustained injuries = skull fracture and rightposterior 7th rib fx. He appears to be recovering well: however, may have a new baseline functional status. 1.) Mentation: -deliriumno - memoryimpaired - depressionno - anxietyno 2.) Mobility: - assistive deviceyes - history of gait dysfunction - consult PT [facility] training - recommendOOB to chair for meals 3.) Medications: - patient meets definition of polypharmacy(5 or more medications)yes - avoid anticholinergics - review for polypharmacy for prescribing cascades (medications prescribed to treat the side effects of other medications)and opportunities for deprescribing recommendations (i.e. Beers List medications) 4.) What Matters/Disposition: - who helps with medical decision-makingN/A - what is important to you today (and in the future)?maintain function 5.) Multi-Complexity: #recurrent falls - in setting of gait d/o, frailty, polypharmacyand overall decline - recommend PT/OT and evaluation for new assistive device - will benefit from rehab stay #polypharmacy - agree with DC tramadol and decrease in benzos given recurrent falls #frailty - weight loss and overall decline - maximize nutrition and strength training - concern for overall trajectory #caregiver distress syndrome - acknowledged with daughters and discussed coping strategies #dispo - awaiting rehabilitation approval - should see PCP prior to driving again - shared with daughters concern for overall health Thank you for allowing Geriatric Medicine to participate in the care of this patient. We willbe signing off of this patient. Please do not hesitate to contact us if you have any questions, concernsor upon patient/family request via TigerText to [facility] Geriatric Consults On-Call. Chief Complaint several recent ground level falls,CT at [facility] showed L occiputal fracture but no bleed per outside record. no blood thinners. no neuro defecits upon arrival. Reason for Consultation fall, geriatric assessment Consult Team Trauma (Dr. Houser) History of Present Illness Jen Nunez is an 88y/o man who lives alone in a senior apartment complex independent of all I/BADLs with significant PMH of Rzhocbn-Ntwee-Vknst Syndrome, chronic pain, gait d/o, and recurrent falls admitted s/p a fall at home where he lost his balance. He sustained injuries = skull fracture and rightposterior 7th rib fx. Patient hashad more falls over the past few months. He has also lost 20lbs in the last year. Both daughters present for H&P. Review of Systems Geriatric Focused ROS: Hearing Symptomsno hearing issues Visual Symptomsno symptoms Urinary Symptomsno symptoms Nutrition Symptomsweight loss Dental Symptomswell-fitting dentures Gait Symptomsuses a cane Fall Symptomsrecurrent falls Caregiver Stress Symptomsstressful Check if negativeSystemSymptoms (details) _x Constitutional _ _x Eyes _ _x Ears, Nose, Mouth, Throat _ _x Cardiovascular _ _x Respiratory _ _x Genitourinary _ _x Gastrointestinal _ _ Musculoskeletal _b/l lower leg/foot pain (chronic) _ Skin _bruising from recurrent falls _x Neurologic _ _x Psychiatric _ _x Endocrine _ _x Hematologic/Lymphatic _ _x Allergic/Immunologic _ Physical Exam Vitals & Measurements T:36.3C TMIN:36.1C TMAX:37.3C HR:62(Monitored) RR:18 BP:176/84 SpO2:95% Oxygen Therapy:Room Air WT:72.7kg Input and Output - Last 24 hours (Last 8 hours) Total In: 0 (0) Total Out: 800 (0) Total Balance: -800 (0) MED INTAKE:0 (0) Male External Urinary Device:550 (0) Urine Voided:250 (0) Urine Count 1(0) General:no apparentdistress,frail-appearing,+cachectic, sitting in chair at bedside Eyes: no scleral icterus ENMT:moistmucous membranes,goodteeth,yestemporal wasting Cardiovascular:regularrate and rhythm Respiratory: lungs clear to auscultation ant/lat exam GI: normal bowel sounds, non-tender/non-distended, soft Musculoskeletal:moderatesarcopenia Neuro:alertattentive, oriented xperson, place, and time; grossly nonfocal; moves all extremities Ext:noedema,cool Skin: no obvious rash Psych:appropriateaffect History obtained from patient andfamily GERIATRIC ASSESSMENT: Prior documentation of Cognitive Impairment or Dementia: No Mini-Cog Score:3/52/2 clock draw, 06/28 recall Delirium Screening:Negative Activities of Daily Living: Feeding:Independent Transferring:Independent Toileting:Independent Dressing:Independent Bathing:Independent Instrumental Activities of Daily Living: Using the telephone:Independent Shopping:Independent Preparing food:Independent(microwaves meals) Housekeeping:Needs Assistance Doing laundry:Independent Using transportation/driving:Independent Handling medications:Independent Handling finances:Independent Continence:Continent of Bowel and Bladder Impaired mobility: YesIf yes, type of assistive device:Cane History of falls in past year?(If yes, # of falls if known):Yes: Any Signs of Poor Nutritional State?:Cachexia Difficulty swallowing:No Is patient experiencing any emotional or spiritual distress related to their current health condition?No Caregiver Assessment: How stressful is caring for your loved one on a scale of 1 (not stressful) to10 (extremely stressful)?N/A Suspectedneglect or abuse?No Diagnostic Results (03/18/2024 21:[address] Head Consult) OO CT Head Consult EXAMINATION: OO CT Head Consult, OO CT Spine Cervical Consult CLINICAL HISTORY: fall COMPARISON: None FINDINGS: BRAIN: Cerebral parenchyma:[There is generalized prominence of convexity sulci and ventricular system. There is approximately 4 to 5 mm thick CSF hygroma in the right frontal region without any significant mass effect or midline shift. Attenuation of the brain parenchyma is normal without evidence for mass, hemorrhage, or midline shift..] Ventricles: [The size and configuration of the ventricles and sulci is normal for age.] Posterior Fossa: [The fourth ventricle is in the midline. The posterior fossa structures including the cerebellum, salty, medulla and cervicomedullary junction are unremarkable.] Calvarium: [7.5 mm thick scalp hematoma is noted over the left parieto-occipital region. There is nondisplaced fracture of the left occipital bone extending toward the base of the skull. There is no evidence of intracranial hemorrhage noted.] Visualized paranasal sinuses/mastoids: [The visualized paranasal sinuses and mastoid air cells are clear. ] CERVICAL SPINE: Alignment: [Cervical spine shows normal alignment. ] Vertebrae: [Cervical vertebrae show normal bone density and height. There is no evidence of fracture or compression seen. There are degenerative changes commensurate with age.] Pre-vertebral space: [Pre and para spinal soft tissues are normal. ] IMPRESSION: 1. Nondisplaced fracture of the left occipital bone extending towards base of the skull. 2. 7.5 mm thick left parietal occipital scalp hematoma. 3. No acute intracranial pathology noted. 4. No acute osseous injury to cervical spine. [1] Attestation I personally have spent81+ minutesreviewing the patient's chart, discussing with interprofessional health care team, performing bedside assessment, creating recommendations and assisting with care coordination. Problem List/Past Medical History Ongoing ACTINIC KERATOSIS CA skin, basal cell Fqphlnq-Vsqko-Xmupa syndrome Hx of skin cancer, basal cell Hypercholesterolemia Pain Seborrhea Skin cancer, basal cell Procedure/Surgical History Shave biopsy and cauterization of skin| Service Date: 01/07/2015Electrodesiccation with curettage| Service Date: 04/23/2014Shave biopsy of skin| Service Date: 02/15/2011Cholecystectomy Medications Inpatient acetaminophen(Tylenol), 1000 mg= 2 tab, PO, q8h aspirin, 81 mg= 1 tab, PO, Daily carbamide peroxide otic(Debrox), 5 drop, right ear, bid clonazePAM, 0.5 mg= 1 tab, PO, bid docusate-senna(Senna S), 1 tab, PO, bid DULoxetine, 60 mg= 2 cap, PO, Daily enoxaparin(Lovenox), 30 mg= 0.3 mL, subQ, q12h oxyCODONE, 2.5 mg= 0.5 tab, PO, q4h, PRN pregabalin(Lyrica), 150 mg= 1 cap, PO, tid simvastatin, 80 mg= 2 tab, PO, qhs Home acetaminophen(Tylenol 325 mg oral tablet), 650 mg= 2 tab, PO, tid aspirin(Aspir 81 oral delayed release tablet), 81 mg= 1 tab, PO, Daily cloNAZepam(clonazepam 1 mg oral tablet), See Instructions desonide topical(desonide 0.05% topical cream), 1 appl, topical, Daily, 2 refills DULoxetine(DULoxetine 60 mg oral delayed release capsule) multivitamin(Multiple Vitamins oral tablet), 1 tab, PO, Daily multivitamin with minerals(ICaps AREDS oral tablet), 1 tab, PO, Daily omega-3 polyunsaturated fatty acids(Fish Oil), 1200 mg, PO, bid pregabalin(Lyrica 150 mg oral capsule), 150 mg= 1 cap, PO, tid sildenafil(sildenafil 50 mg oral tablet), 50 mg= 1 tab, PO, Daily, PRN simvastatin(simvastatin 80 mg oral tablet), 1 tab, PO, qhs tramadol(tramadol 50 mg oral tablet), 100 mg= 2 tab, PO, tid, PRN Allergies NKA Social History Smoking Status Never smoked cigarettes 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 in 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 2 daughters involved in his care Family History +mom dementia Lab Results reviewed and nothing of concern [1]OO CT Head Consult; MD Guerline, Octavia G 03/18/2024 21:10 EDT Electronic Signature on File Electronically Reviewed/Signed by: Beverly Ta MD Author Signature Dt/Tm:03/20/2024 05:39 PM Division of Internal Medicine AMW * MD Jett Mitchell: PERFORM Event Display: Neurosurgery Consult Authored Date: [id number] NEUROSURGERY INPATIENT CONSULTATION REPORT Name: JEN JEFFREY Patient Number: [id number] : 1935 Date of Service: 03/19/2024 REQUESTING SERVICE: _Trauma REASON FOR CONSULTATION: _Linear nondisplaced left occipital skull fracture ASSESSMENT: _[id number]-bml gentleman who suffered a linear nondisplaced left occipital skull fractureafter a fall from standing with head strike, no intracranial findings RECOMMENDATIONS: _ ## Left linear nondisplaced occipital skull fracture -No acute neurosurgery intervention -No need for further imaging -Okay for discharge from our perspective. Neurochecks, prophylactic Lovenox at the discretion of primary team -The patient may follow-up with neurosurgery on an as-needed basis -Please [place] text [facility] neurosurgery resident on-call with any questions History of Present Illness: _This is an 88-year-old man with no significant PMHx who fell at home to left side with headstrike. He did not lose consciousness, he had no nausea or vomiting afterwards.On his imaging workup he has a left sided linear non-diplaced occipital skull fracture with no intracranial findings. Minimal scalp hematoma, not on thinners. Patient denies headache currently, also denies confusion, visual changes, weakness, numbness. Review Of Systems: _As above Past Medical History: Problems: CA skin, basal cell Skin cancer, basal cell Einfadf-Oiyux-Ruxyr syndrome ACTINIC KERATOSIS Hx of skin cancer, basal cell Seborrhea Pain Hypercholesterolemia Surgical History: Procedure History Procedure Procedure Date Comments Cholecystectomy Shave biopsy and cauterization of skin 01/07/2015 Electrodesiccation with curettage 04/23/2014 - shave biopsy sent Shave biopsy of skin 02/15/2011 Family History: Noncontributory Social History: _Good support from family Allergies and Sensitivities: NKA Active Inpt Meds: DULoxetine 60 mg PO Daily acetaminophen (Tylenol) 1,000 mg PO q8h aspirin 81 mg PO Daily docusate-senna (Senna S) 1 tab PO bid enoxaparin (Lovenox) 30 mg subQ q12h lidocaine topical (lidocaine 4% patch) 1 patch transdermal q24h simvastatin 80 mg PO qhs Active PRN Meds: traMADol 25 mg PO q6h traMADol 50 mg PO q6h One Time Meds: (Completed) iohexol (Omnipaque 350) 100 mL w/ contrast-IV ONCE Active IV Meds: Dextrose 5% with 0.45% NaCl and KCl 20 mEq/L 1,000 mL (D5 - 0.45% NaCl + 20 mEq/L KCl 1,000 mL) 1,000 mL 100 mL/HR Vitals: Last Updated 03/19/24 00:15 Weights: Last Updated 03/18/24 20:53 Date Temp Pulse BP RR SpO2 FIO2 Date Wt(kg) Wt(lb) 03/19 00:15 36.1 63 139/73 18 98 03/18 20:53 75.6 166 03/18 22:11 94 03/18 20:53 75.6 166 03/18 22:00 37.4 53 164/76 18 92 03/18 21:42 175/92 03/18 21:41 37.1 60 169/ 18 95 24 Hr Tmax: 37.4 at 03/18 22:00 Initial Wt: 03/18 75.6 kg 166 lb Physical Exam: Alert and oriented x3 PERRL, EOMI Facial sensation intact in V1/V2/V3 distributions bilaterally Face symmetric, Tongue midline No drift RUE 5/5 proximally and 5/5distally RLE 5/5 proximally and 5/5distally LUE 5/5 proximally and5/5 distally LLE 5/5 proximally and 5/5 distally Sensation symmetric and intact to light touch in all extremities Small, nontender scalp hematoma palpated in left occipital region Most Recent 24 Hour CBC/BMP Results CBC: on 03/18/2024 21:27 CMP: on 03/18/2024 21:27 11.4 140 103 19 9.7 181 98 36.5 4.0 27 0.83 Abs Neut = 6.5 Ca = 9.0 Most Recent 24 Hour Labs: 03/18/24 2319 Bact (u) See Flowsheet Bili (u) See Flowsheet Ketones NEGATIVE Leuk Est See Flowsheet Nitrite (u) See Flowsheet Appear (u) See Flowsheet Color (u) See Flowsheet Glu (u) NEGATIVE Hgb (u) See Flowsheet pH (u) 7.0 Prot (u) 30 RBC (u) 0-4 Urobili 2.0 H SG 1.016 WBC (u) 0-4 Squamous Epithelial Cells (u) See Flowsheet Mucous (u) See Flowsheet 03/18/242208 Estimated CrCl 63.68 03/18/242126 MCH 26.8 L MCHC 31.2 L MCV 85.9 RBC 4.25 L MPV 10.6 Immature Gran% 0.6 Neut% 66.3 Lymph% 17.1 [place]% 13.3 Baso% 0.7 Eos% 2.0 Immat Gran, Abs 0.06 Lymph, Abs 1.66 [place], Abs 1.29 H Baso, Abs 0.07 Eos, Abs 0.19 Type of Diff: See Flowsheet RDW 16.2 H Anion Gap 10 eGFR CKD-EPI 84 INR 1.1 PT 14.5 H Alk Phos 101 ALT 15 AST 20 T Bili 0.5 Alb 3.8 Prot 7.2 Studies: Pending or Completed in the Last [address] Abdomen and Pelvis w/ Contrast Ordered CT Thorax w/ Contrast Ordered CT Spine Thoracic w/ Contrast Recon Ordered CT Spine Lumbar w/ Contrast Recon Ordered EKG Ordered OO CT Spine Cervical Consult Completed OO XR Chest Consult Completed OO CT Head Consult Completed Electronic Signature on File Electronically Reviewed/Signed by: Mono Jett MD Author Signature Dt/Tm:03/19/2024 02:08 AM Resident Department of Neurosurgery Electronically Reviewed/Signed by: Marcello Jhaveri MD Cosigner Signature Dt/Tm: 03/23/2024 05:11 PM Department of Neurosurgery MP .D/C Summary * LUPILLO Rajput, Geraldo A: MODIFY, NICHOL Zamudio MD, Scott B: MODIFY Event Display: .D/C Summary Authored Date: [id number] [facility] For medical concerns, call: . Address: [address] [place] [address] [address] [facility] [place] Cohn [id number] (MOBILE) :1935 . Date of Admission:03/18/2024 Date of Discharge:03/28/2024 Physician:MD Zamudio Scott B Service:Trauma Surgery Discharge Disposition: Primary Care Provider/Phone: DO MEYER WILLIAM PRICE (BUSINESS) [phone] (FAX BUSINESS) Principal Diagnosis: Fall from standing Other Diagnoses: Occipital bone fracture Fracture of rib of right side Caregiver burden Chronic pain Encounter for geriatric assessment Frailty Gait disorder Polypharmacy Recurrent falls DIAGNOSES: -7.5 mm thick scalp hematoma is noted over the left parieto-occipital region -nondisplaced fracture of the left occipital bone extending toward the base of the skull -Acute mildly displaced fracture of the posterior right seventh rib -Concussion with unknown loss of consciousness -Dysphagia -Leukocytosis -Hyponatremia -Hyperglycemia INCIDENTAL FINDINGS: The following incidental findings were found on your trauma X-Rays and CT scans.If Radiology had recommendations for follow-up/further investigation, these are included below. Please discuss these findings with your personal physician. You can request a copy of these films on CD-ROM by calling [employer] [phone]. -4 to 5 mm thick CSF hygroma in the right frontal region without any significant mass effect or midline shift -cervical spine degenerative changes -Multiple pulmonary nodules throughout the lungs bilaterally, largest measuring 0.9 x 0.7 cm -Fat-containing lesions in the left lung base measuring 2.9 x 2.1 cm and 1.5 x 1.4 cm, hamartoma versus lipoma, benign -Consolidative opacity in the right lung base measuring 2.9 x 2.6 cm -Peribronchial thickening in the lower lobes bilaterally -Bilateral bronchiectasis -Moderate to severe emphysema with biapical scarring -Scattered calcified granulomas -Small hiatal hernia. -Calcifications at the aortic annulus. -Diffuse hepatic steatosis -Small hypodensity in the inferior pole of the spleen, too small to characterize -Numerous bilateral renal cysts, some of which are slightly higher attenuation for simple cysts andlikely represent hemorrhagic/proteinaceous cyst -Infrarenal fusiform abdominal aortic aneurysm measuring 5.0 x 4.9 cm -Diffuse atherosclerotic calcifications in the aorta and its branches -Diverticulosis without diverticulitis -Diffuse colonic stool burden. -Dystrophic calcifications in the prostate -prostatomegaly Please discuss the above findings with your family doctor. Major Tests and Procedures: None Brief History of Present Illness: HPI:This is an 88 year old male with a history of chronic arthritic pain, orthostatic hypotension, Akrhgzg-Ahvhf-Rqume disease, who presented as a transfer from a referring hospital for evaluation of an occipital skull fracture in the setting of recurrent falls. The patient states he was visitinghis [place] in November in [place] and since returning, he has had several falls at his home, increasing in frequency. He notes most recently he fell on 03/17 and 03/18 from standing. He has hit his headalmost every fall. He states he simply loses his balance which he attributes to pain in his feet from Wivhmha-Tomib-Wfqsl disease and shuffling gait that he notes his outpatient neurologist evaluateshim for. He denies any presyncopal symptoms. During his most recent fall, he was in the kitchen sorting his pills for the week when he lost balance and struck the back of his head possibly on the oven handle or the counter. He denied loss of consciousness. Hospital Course: Mr Jeffrey is an 88 year old male who was admitted to [facility] after multiple falls. The patient was found to have an occipital bone fracture. Neurosurgery was consulted and no further treatment was needed. There was a right 7th rib fracture identified on his CT scans but this finding was asymptomatic. He was normalized and evaluated by PT/OT. His home meds were restarted. Speech evaluated him on 03/21 due to concerns for aspiration. Some aspiration was seen, and his diet was changed to mildlythick liquids with strict aspiration precautions. Notably the patient voiced he would not want a feeding tube. The patientcontinued to improve throughout his hospitalization. His pain medications were adjusted and he was able to participate with PT/OT. He was recommended for inpatient rehaband cleared for discharge on 03/28/2024. Exam on Discharge: Vitals & Measurements: T:36C TMIN:36C TMAX:36.3C HR:60(Monitored) RR:17 BP:160/79 SpO2:96% Oxygen Therapy:Room Air WT:67.7kg General:alert, cooperative HEENT:posterior scalp hematoma and ecchymosis, very mild tenderness to palpation, EOMI, left cheek nontender ecchymosis improving Chest:CTA bilaterally Abdomen:soft, nontender Extremity:moving all four extremities spontaneously Neuro:alert and oriented, grossly intact Skin:scattered nontender ecchymosis on upper extremities-improving Discharge Medications: 1.Simvastatin (simvastatin 80 mg oral tablet) 1 tab by mouth at bedtime. 2.Abbot-3 polyunsaturated fatty acids (Fish Oil) by mouth 2 times daily. 3.Multivitamin (Multiple Vitamins oral tablet) 1 tab by mouth once daily. 4.Pregabalin (Lyrica 150 mg oral capsule) 150 mg (1 cap) by mouth 3 times daily. 5.Desonide topical (desonide 0.05% topical cream) 1 appl topically once daily. To inflamed red scaly areas of face daily as needed. 6.Sildenafil (sildenafil 50 mg oral tablet) 50 mg (1 tab) by mouth once daily, as needed for erectile dysfunction. 7.Aspirin (Aspir 81 oral delayed release tablet) 81 mg (1 tab) by mouth once daily. 8.DULoxetine (DULoxetine 60 mg oral delayed release capsule) . TAKE 1 CAPSULE BY MOUTH ONCE DAILY IN THE MORNING. 9.Multivitamin with minerals (ICaps AREDS oral tablet) 1 tab by mouth once daily. 10.ClonazePAM 0.5 mg (1 tab) by mouth 2 times daily. 11.Acetaminophen (Tylenol 500 mg oral tablet) 1,000 mg (2 tab) by mouth every 8 hours. 12.Carbamide peroxide otic (Debrox) 5 drop in right ear 2 times daily. 13.OxyCODONE (oxyCODONE 5 mg oral tablet) 2.5 mg by mouth 3 times daily. give doses at 7AM, 1PM and 7PM. Allergies and Sensitivities: NKA Tests Pending: None Other Appointments: Provider or Location Time Frame Details about visit Trauma Surgery If you have not been contacted with this appointment information within two business days, please call Surgery Specialties Scheduling [phone]. Discharge Services: Service: Organization: Business Address: Phone Number: [facility] [address], [address] Care Instructions: PATIENT INSTRUCTIONS: Tylenol 500 mg, one or two tablets every 8 hours for mild to moderate pain as needed. Please limit the total daily dose to 3000 mg. Oxycodone 5 mg, one half tablet given at 7AM, 1PM and 7PM Please take an over the counter stool softener, such as Colace, and/orMilk of Magnesia, along withpain medications to reduce the chances of developing constipation. Prune juice or Miralax is allowed. Do not drive or operate any sort of machinery that is dangerous or requiring of your full attentionwhile taking prescription pain relievers. You will be expected to wean off the painkillers promptly so as to not cause dependence on narcotics. Do not mix prescription pain medications with alcohol. In addition to above,resume your usual home medications at the regular doses. There were no other intentional changes made to your home medications. If this list does not correlate with your usual medications, please contact your personal physician to clarify. Take at least 10 deep breaths every hour, while awake, to help keep the lungs wide open and preventpneumonia. You are recommended to not smoke or use tobacco products. An unlikely, but possible complication of rib fracture, is the accumulation of fluid in the lungs known as a pleural effusion. It is very important that you take frequent deep breaths and use your ISB device to keep the lungs expanded and prevent fluid accumulation. If you notice a significant decrease in your exercise tolerance or increasing shortness of breath, youmust notifythe traumasurgeryservice or your physician immediately. Please attempt to wean the clonazepam as tolerated. WOUND CARE: You may shower/batheand cleanany abrasions/wounds with soap and water and pat dry. General Safety instructions for all trauma patients 1.Do not drive impaired. Never drive or operate machinery if you have been drinking alcohol, using illicit drugs, or, taking prescription pain medication. 2.Wear all recommended safety equipment at your job site such as hard hats, goggles, welders helmets, respirators, gloves, etc. 3.Wear safety shoes when recommended. 4.Wear a safety harness when working on a roof or any elevated platform. 5.Respect posted signs such as wet floors, radiation safety, etc. 6.Wear a helmet when operating a motorcycle, bicycle, skateboard, or whenever you are participating in an activity that has a risk of head injury. 7.Wear safety goggles. 8.Keep a copy of your medications/allergies/personal physician/and next of kin in your wallet at all times. 9.Try to avoid hunting/fishing/hiking/swimming alone. 10.Wear seat belts. 11.Do not text while driving. 12.Keep firearms locked up and unloaded when not in use. Keep them out of the reach of children. Never handle firearms when under the influence of alcohol or drugs. Always follow safety instructions and obtain proper training before using firearms. 13.[place] [facility] DIET: Regular diet with nectar thickened liquids. ACTIVITY: Walk at least 150 feet daily to prevent blood clots. No heavy lifting greater than 10lbs or strenuous activities for 6weeks. Post Head Injury Instructions Most patients (approximately 90%) who suffer a head injury recover within the first 12 weeks following injury. It is impossible to know how long your symptoms will last. Findings, or lack of, on a head CT scan are not predictive of how long recovery will take. Avoid all activity that puts you at risk for a repeat head injury within the next six (6) months.This is to prevent the so calledSecond Impact Syndrome.Examples would include climbing ladders, step stools, horseback riding, ATV/motorcycles without a helmet, contact sports, law enforcement, etc. You should not drive or operate a motorized device of any kind until cleared by a physician to do so. Symptoms that you may experience from a head injury include headache, dizziness, nausea, visual disturbances, sensitivity to lights, personality changes, short term memory loss, problems getting to sleep, problems staying asleep, problems with speech including word finding problems, and personalitychanges. The onset of any of these symptoms should cause you to cease activity and rest or take a nap. Any symptoms that are severe or unrelenting should be evaluated in the nearest Emergency Department. It is common to need a nap every day during the recovery period and this is expected. You are notallowed to drive a car or operate any devices that require mental alertness during this time. Trying to work thru symptoms by taking pain medications and pushing on will only cause both an increasein symptom severity and prolong your recovery time. If you had a laceration and have sutures/dane in your head, you may shower and wash over these including shampoo. You can use a handheld blow dryer. You should not use hair chemicals such as color or perms until the laceration is fully healed. At follow-up appointments, you might be referred to a rehabilitation physician for evaluation in the concussion clinic which is located at the [facility]. You might also be asked to see physical or speech therapists. If Neurosurgery was involved in your care, you might need a follow-up in their clinic as well. These arenecessary appointments to your recovery. Please call the trauma office at [phone] with questions regarding the above. Helpful Hints Gradually increase activity as you are able. Elevate your head of bed at least 20 degrees. Get plenty of rest. Avoid alcohol and any recreational drugs. These may have an exaggerated effect. Simplify your life and follow a consistent daily routine. Turn off the TV/radio/other distractions when performing a task. Write things down. FOLLOW UP APPOINTMENTS: Unless printed out below, you will be called with your appointment date & times. If you have not received a call within 1 week of discharge or if you need to change your appointment, please call the following numbers (each service). Please follow up with your primary care physician within 2 weeks to review your recent hospital stay. Follow up with Trauma Clinic in about 3 weeks Follow up with Neurosurgery as needed. CONTACT regarding your hospitalization: Call [phone] to reach trauma surgeryif there are non-urgent concerns related to this trauma admission such as increasing pain, fevers, wound problems, etc. If you have FMLA/disability/etc paperwork that needs to be filled out, please fill out your portionof the paperwork entirely and fax to [phone]. The remainder of the paperwork will be filled out and faxed to the desired location. Please include # and information for where to fax paperwork. [place] status of paperwork or for questions, call [phone]. Call [phone] to reach the [facility] connected to theTrauma Surgery residentif there are urgent issues related to this general surgical admission such as increasing pain, wound problems, fever/chills, etc. Please reserve this option for concerns that cannot wait for the next business day. Please call 911 or report directly to the nearest Emergency Department if there are emergent, life threatening issues. NOTICEFOR WORK RELATED/INSURANCE FORMS: Regarding completion of work related and insurance forms: Please know that timely completion is our goal. Processing forms typically requires 10-14busdays. Timely submission to the trauma surgery office is very important. Please verify thatYOURportion has been completed and signed prior to submission. Forms submitted without your portion completed and signed will be set aside and not returned. Please include the name of your employer andfax number. Mail forms to: Attention forms completion Department of Trauma and EGS [address], [place] [address] [place] [address] . Advance Directive:None I personally spent 35 minutes in discharge planning. Attending Physician Attestation: I saw and evaluated the patient with the team. I have reviewed the note and the findings have been confirmed. I agree with the assessment and plan as documented and amended above.I personally made/approved the management plan for this patient and take responsibility for the patient management.-Dilan Zamudio MD Electronic Signature on File Electronically Reviewed/Signed by: Geraldo Rajput PA-C Author Signature Dt/Tm:03/28/2024 06:37 AM Division of Trauma Surgery Electronically Reviewed/Signed by: Geraldo Rajput PA-C Cosigner Signature Dt/Tm: 03/28/2024 08:53AM Division of Trauma Surgery Electronically Reviewed/Signed by: Dilan Zamudio MD Cosigner Signature Dt/Tm: 03/28/2024 02:32 PM Division of Trauma Surgery TAB Emergency department Summary note * MD Santana, Sil Downing: MODIFY MD Dillon Catherine Anna: MODIFY Event Display: ED Summary Authored Date: [id number] Basic Information Time Seen: DO Shah Jessica Tasia 03/18/2024 21:02 Chief Complaint several recent ground level falls,CT at [facility] showed L occiputal fracture but no bleed per outside record. no blood thinners. no neuro defecits upon arrival. History of Present Illness Patient is an 88-year-old male with past medical history of hypercholesterolemia, Hjbqgzu-Paoid-Lnkfx, frequent falls who presents emergency department as a transfer from [facility] after he had amechanical fall in his homeand was found to have a nondepressed occipital skull fracture. Patient does not take blood thinners. Denies any loss of consciousness. Patient reports that he was putting together his pills in his pill container when he had a mechanical fall and hit his head on his abdomen on the way down. He was seen at [facility] where he had CT scans which demonstrated the fracture and he was transferred here for trauma evaluation. Review of Systems All other ROS are negative unless otherwise indicated in the HPI Physical Exam Vitals & Measurements T:37.4C HR:53(Monitored) RR:18 BP:164/76 SpO2:94% Oxygen Therapy:Room Air HT:178cm WT:75.6kg WT:75.600kg(Dosing) BMI:23.86 General: alert and oriented x3, NAD HEENT: EOEMI, PERRLA, normocephalic, atraumatic, no ocular exudate, white conjunctiva, moist mucus membranes in mouth, bruising to back of neck Cardiovascular: RRR, no murmurs, rubs or gallops, no lower extremity pitting edema Respiratory: CTA bilaterally, no wheezing, rales or rhonchi, no accessory muscle use Abdominal: non- distended, normal bowel sounds, soft, no TTP Skin: no palor, no cyanosis, no rashes, color wnl, no appreciable skin injuries or lacerations Neuro: CN 2-12 intact, finger to nose wnl,no truncal ataxia, no facial drop, normal facial symmetry, muscle strength 5/5 in bilateral upper and lower extremities, sensation in upper and lower extremities to light touch intact MSK: no gross deformities or swelling, no ecchymosis, no crepitus in bilateral upper and lower extremities Medical Decision Making Patient is an 88-year-old male presenting to the emergency department as a transfer from [facility] for trauma evaluation after he was found to have an occipital skull fracture after mechanical fall. Vitals within normal limits. Physical exam demonstrated bruising to the back and neck however no tenderness to palpation. Exam was otherwise within normal limits. Differential diagnosis includes occipital skull fracture, cervical spine fracture,or other intrathoracic or intra-abdominal trauma. I did review his imaging from [facility] and they had completed a CT scan of his head and neck whichdemonstrated no acute cervical pathology and only demonstrated the occipital skull fracture. Went ahead and ordered a CBC, CMP and coags as well as completion studies to include CT chest abdomen pelvis with reconstructions of the spine. I discussed the case withthe trauma team who came and evaluate the patient admitted him to their service before the scans were read. Assessment/Plan Fall from standing Occipital bone fracture Medication Reconciliation Unchanged cloNAZepam (clonazepam 1 mg oral tablet)1mg in AM and 0.5mg at 11 AM and 3 PM. desonide topical (desonide 0.05% topical cream)1 michael topically once daily. To inflamed red scaly areas of face daily as needed. Refills: 2. ibuprofen (ibuprofen 200 mg oral tablet)1 tab(s) by mouth 3 times daily. multivitamin (Multiple Vitamins oral tablet)1 tab(s) by mouth once daily. omega-3 polyunsaturated fatty acids (Fish Oil)1,200 Milligram by mouth 2 times daily. omega-3 polyunsaturated fatty acids (omega-3 polyunsaturated fatty acids 500 mg oral capsule) pramipexole (pramipexole 0.25 mg oral tablet)0.5 tab(s) by mouth 2 times daily. pregabalin (Lyrica 150 mg oral capsule)1 cap by mouth 3 times daily. sildenafil (sildenafil 50 mg oral tablet)1 tab(s) by mouth once daily as needed as needed for erectile dysfunction. simvastatin (simvastatin 80 mg oral tablet)1 tab(s) by mouth at bedtime. tramadol (tramadol 50 mg oral tablet)2 tab(s) by mouth 3 times daily as needed as needed for pain. Attestation The patient's history, exam findings, diagnostics, and a summary of any interventions or procedureswere reviewed in detail with the ResidentI personally interviewed and examined the patient, Ester have reviewed and agree with the HPI andexam.My personal exam shows alert, NAD. Neuro nonf ocal.I confirm the diagnosis as documented by the Resident.I have reviewed and agree with the care plan articulated in the disposition section.I fully participated in and agree withmedical decision making for this patient. Problem List/Past Medical History Ongoing ACTINIC KERATOSIS CA skin, basal cell Dnfxqzb-Mvdqi-Qknwt syndrome Hx of skin cancer, basal cell Hypercholesterolemia Pain Seborrhea Skin cancer, basal cell Procedure/Surgical History Shave biopsy and cauterization of skin| Service Date: 01/07/2015Electrodesiccation with curettage| Service Date: 04/23/2014Shave biopsy of skin| Service Date: 02/15/2011Cholecystectomy Medication Administration Administered: Medications: Omnipaque 350, 100 mL, contrast-IV (03/18/2024 23:05 EDT) Allergies NKA Social History Denies alcohol use, tobacco use, recreational drug use Lab Results Chemistry LATEST RESULTS Na 03/18/24 21:27 140 mmol/L K 03/18/24 21:27 4.0 mmol/L Cl- 03/18/24 21:27 103 mmol/L HCO3 03/18/24 21:27 27 mmol/L Anion Gap 03/18/24 21:27 10 mmol/L BUN 03/18/24 21:27 19 mg/dL Cret 03/18/24 21:27 0.83 mg/dL Estimated CrCl 03/18/24 22:09 63.68 eGFR CKD-EPI 03/18/24 21:27 84 mL/min/1.73 m2 Glu 03/18/24 21: 98 mg/dL Ca 03/18/24 21:27 9.0 mg/dL CBC LATEST RESULTS WBC 03/18/24 21:27 9.72 K/uL Hgb 03/18/24 21: 11.4 g/dL Low Hct 03/18/24 21: 36.5 % Low RBC 03/18/24 21:27 4.25 M/uL Low MCV 03/18/24 21:27 85.9 fL MCHC 03/18/24 21:27 31.2 g/dL Low MCH 03/18/24 21: 26.8 pg Low RDW 03/18/24 21:27 16.2 % High Plts 03/18/24 21:27 181 K/uL MPV 03/18/24 21:27 10.6 fL Type of Diff: 03/18/24 21:27 AUTO Immature Gran% 03/18/24 21:27 0.6 % Neut% 03/18/24 21:27 66.3 % Lymph% 03/18/24 21:27 17.1 % [place]% 03/18/24 21:27 13.3 % Baso% 03/18/24 21:27 0.7 % Eos% 03/18/24 21:27 2.0 % Immat Gran, Abs 03/18/24 21:27 0.06 K/uL Neut, Abs 03/18/24 21: 6.45 K/uL Lymph, Abs 03/18/24 21: 1.66 K/uL [place], Abs 03/18/24 21:27 1.29 K/uL High Baso, Abs 03/18/24 21:27 0.07 K/uL Eos, Abs 03/18/24 21:27 0.19 K/uL Coagulation LATEST RESULTS INR 03/18/24 21:27 1.1 PT 03/18/24 21:27 14.5 seconds High Liver/GI LATEST RESULTS ALT 03/18/24 21:27 15 unit/L T Bili 03/18/24 21:27 0.5 mg/dL Alk Phos 03/18/24 21:27 101 unit/L AST 03/18/24 21:27 20 unit/L Nutrition LATEST RESULTS Alb 03/18/24 21:27 3.8 g/dL Prot 03/18/24 21:27 7.2 g/dL Electronic Signature on File Electronically Reviewed/Signed by: Yi Shah DO Author Signature Dt/Tm:03/18/2024 11:53PM Resident Department of Emergency Medicine Electronically Reviewed/Signed by: Sil Davis Signature Dt/Tm: 03/19/2024 12:16 AM Department of Emergency Medicine [facility] Facility Discharge Instructions * LUPILLO Rajput, Geraldo Wagner: PERFORM Event Display: Facility Discharge Instructions Authored Date: [id number] JEN JEFFREY :1935 Visit Date:03/18/2024 Facility Discharge Instructions [facility] For medical concerns, call: . Date of Admission:03/18/2024 Date of Discharge:03/28/2024 Physician:MD Zamudio Scott B Service:Trauma Surgery Discharge Disposition: Primary Care Provider/Phone: DO MEYER WILLIAM PRICE (BUSINESS) [phone] (FAX BUSINESS) . Advance Directive:None Reason for Hospitalization Fall from standing Your Diagnoses Fall from standing Occipital bone fracture Fracture of rib of right side Caregiver burden Chronic pain Encounter for geriatric assessment Frailty Gait disorder Polypharmacy Recurrent falls DIAGNOSES: -7.5 mm thick scalp hematoma is noted over the left parieto-occipital region -nondisplaced fracture of the left occipital bone extending toward the base of the skull -Acute mildly displaced fracture of the posterior right seventh rib -Concussion with unknown loss of consciousness -Dysphagia -Leukocytosis -Hyponatremia -Hyperglycemia INCIDENTAL FINDINGS: The following incidental findings were found on your trauma X-Rays and CT scans.If Radiology had recommendations for follow-up/further investigation, these are included below. Please discuss these findings with your personal physician. You can request a copy of these films on CD-ROM by calling [employer] [phone]. -4 to 5 mm thick CSF hygroma in the right frontal region without any significant mass effect or midline shift -cervical spine degenerative changes -Multiple pulmonary nodules throughout the lungs bilaterally, largest measuring 0.9 x 0.7 cm -Fat-containing lesions in the left lung base measuring 2.9 x 2.1 cm and 1.5 x 1.4 cm, hamartoma versus lipoma, benign -Consolidative opacity in the right lung base measuring 2.9 x 2.6 cm -Peribronchial thickening in the lower lobes bilaterally -Bilateral bronchiectasis -Moderate to severe emphysema with biapical scarring -Scattered calcified granulomas -Small hiatal hernia. -Calcifications at the aortic annulus. -Diffuse hepatic steatosis -Small hypodensity in the inferior pole of the spleen, too small to characterize -Numerous bilateral renal cysts, some of which are slightly higher attenuation for simple cysts andlikely represent hemorrhagic/proteinaceous cyst -Infrarenal fusiform abdominal aortic aneurysm measuring 5.0 x 4.9 cm -Diffuse atherosclerotic calcifications in the aorta and its branches -Diverticulosis without diverticulitis -Diffuse colonic stool burden. -Dystrophic calcifications in the prostate -prostatomegaly Please discuss the above findings with your family doctor. My Health Patient Portal: MD.Voice makes it easy for you to manage your health information online. My [employer] is a free service that provides you instant, secure access to your medical information anytime, anywhere. Sign in or set up your account today at [facility].[employer] Thank you for allowing us to assist you with your healthcare needs. If you need additional community resources, [facility] 211 can help at https://www.pa211.org. 211 can assist you in connecting with social programs based on your unique needs and locations. 211 is an anonymous search that can help you locate resources for: Food, Housing, Transportation, Goods, Education and Healthcare. Hospital Course Mr Jeffrey is an 88 year old male who was admitted to [facility] after multiple falls. The patient was found to have an occipital bone fracture. Neurosurgery was consulted and no further treatment was needed. There was a right 7th rib fracture identified on his CT scans but this finding was asymptomatic. He was normalized and evaluated by PT/OT. His home meds were restarted. Speech evaluated him on 03/21 due to concerns for aspiration. Some aspiration was seen, and his diet was changed to mildlythick liquids with strict aspiration precautions. Notably the patient voiced he would not want a feeding tube. The patientcontinued to improve throughout his hospitalization. His pain medications were adjusted and he was able to participate with PT/OT. He was recommended for inpatient rehaband cleared for discharge on 03/28/2024. Exam on Discharge Vitals & Measurements: T:36C TMIN:36C TMAX:36.3C HR:60(Monitored) RR:17 BP:160/79 SpO2:96% Oxygen Therapy:Room Air WT:67.7kg General:alert, cooperative HEENT:posterior scalp hematoma and ecchymosis, very mild tenderness to palpation, EOMI, left cheek nontender ecchymosis improving Chest:CTA bilaterally Abdomen:soft, nontender Extremity:moving all four extremities spontaneously Neuro:alert and oriented, grossly intact Skin:scattered nontender ecchymosis on upper extremities-improving Medications What How Much When Instructions Next Dose New carbamide peroxide otic (Debrox) 5 Drops in right ear 2 times daily New oxyCODONE (oxyCODONE 5 mg oral tablet) 2.5 Milligram by mouth 3 times daily give doses at 7AM, 1PM and 7PM Changed acetaminophen (Tylenol 500 mg oral tablet) 2 tab(s) by mouth Every 8 hours Changed clonazePAM 0.5 Milligram by mouth 2 times daily Changed omega-3 polyunsaturated fatty acids (Fish Oil) 1,200 Milligram by mouth 2 times daily Unchanged aspirin (Aspir 81 oral delayed release tablet) 1 tab(s) by mouth Once daily Unchanged desonide topical (desonide 0.05% topical cream) 1 michael topically Once daily To inflamed red scaly areas of face daily as needed Unchanged DULoxetine (DULoxetine 60 mg oral delayed release capsule) TAKE 1 CAPSULE BY MOUTH ONCE DAILY IN THE MORNING Unchanged multivitamin (Multiple Vitamins oral tablet) 1 tab(s) by mouth Once daily Unchanged multivitamin with minerals (ICaps AREDS oral tablet) 1 tab(s) by mouth Once daily Unchanged pregabalin (Lyrica 150 mg oral capsule) 1 cap by mouth 3 times daily Unchanged sildenafil (sildenafil 50 mg oral tablet) 1 tab(s) by mouth Once daily as needed for as needed for erectile dysfunction Unchanged simvastatin (simvastatin 80 mg oral tablet) 1 tab(s) by mouth At bedtime Allergies NKA What to do next Instructions From Your Doctor PATIENT INSTRUCTIONS: Tylenol 500 mg, one or two tablets every 8 hours for mild to moderate pain as needed. Please limit the total daily dose to 3000 mg. Oxycodone 5 mg, one half tablet given at 7AM, 1PM and 7PM Please take an over the counter stool softener, such as Colace, and/orMilk of Magnesia, along withpain medications to reduce the chances of developing constipation. Prune juice or Miralax is allowed. Do not drive or operate any sort of machinery that is dangerous or requiring of your full attentionwhile taking prescription pain relievers. You will be expected to wean off the painkillers promptly so as to not cause dependence on narcotics. Do not mix prescription pain medications with alcohol. In addition to above,resume your usual home medications at the regular doses. There were no other intentional changes made to your home medications. If this list does not correlate with your usual medications, please contact your personal physician to clarify. Take at least 10 deep breaths every hour, while awake, to help keep the lungs wide open and preventpneumonia. You are recommended to not smoke or use tobacco products. An unlikely, but possible complication of rib fracture, is the accumulation of fluid in the lungs known as a pleural effusion. It is very important that you take frequent deep breaths and use your ISB device to keep the lungs expanded and prevent fluid accumulation. If you notice a significant decrease in your exercise tolerance or increasing shortness of breath, youmust notifythe traumasurgeryservice or your physician immediately. Please attempt to wean the clonazepam as tolerated. WOUND CARE: You may shower/batheand cleanany abrasions/wounds with soap and water and pat dry. General Safety instructions for all trauma patients 1.Do not drive impaired. Never drive or operate machinery if you have been drinking alcohol, using illicit drugs, or, taking prescription pain medication. 2.Wear all recommended safety equipment at your job site such as hard hats, goggles, welders helmets, respirators, gloves, etc. 3.Wear safety shoes when recommended. 4.Wear a safety harness when working on a roof or any elevated platform. 5.Respect posted signs such as wet floors, radiation safety, etc. 6.Wear a helmet when operating a motorcycle, bicycle, skateboard, or whenever you are participating in an activity that has a risk of head injury. 7.Wear safety goggles. 8.Keep a copy of your medications/allergies/personal physician/and next of kin in your wallet at all times. 9.Try to avoid hunting/fishing/hiking/swimming alone. 10.Wear seat belts. 11.Do not text while driving. 12.Keep firearms locked up and unloaded when not in use. Keep them out of the reach of children. Never handle firearms when under the influence of alcohol or drugs. Always follow safety instructions and obtain proper training before using firearms. 13.National Suicide Prevention Lifeline FOLLOW UP APPOINTMENTS: Unless printed out below, you will be called with your appointment date & times. If you have not received a call within 1 week of discharge or if you need to change your appointment, please call the following numbers (each service). Please follow up with your primary care physician within 2 weeks to review your recent hospital stay. Follow up with Trauma Clinic in about 3 weeks Follow up with Neurosurgery as needed. CONTACT regarding your hospitalization: Call [phone] to reach trauma surgeryif there are non-urgent concerns related to this trauma admission such as increasing pain, fevers, wound problems, etc. If you have FMLA/disability/etc paperwork that needs to be filled out, please fill out your portionof the paperwork entirely and fax to [phone]. The remainder of the paperwork will be filled out and faxed to the desired location. Please include # and information for where to fax paperwork. [place] status of paperwork or for questions, call [phone]. Call [phone] to reach the [facility] connected to theTrauma Surgery residentif there are urgent issues related to this general surgical admission such as increasing pain, wound problems, fever/chills, etc. Please reserve this option for concerns that cannot wait for the next business day. Please call [phone] or report directly to the nearest Emergency Department if there are emergent, life threatening issues. NOTICEFOR WORK RELATED/INSURANCE FORMS: Regarding completion of work related and insurance forms: Please know that timely completion is our goal. Processing forms typically requires 10-14businessdays. Timely submission to the trauma surgery office is very important. Please verify thatYOURportion has been completed and signed prior to submission. Forms submitted without your portion completed and signed will be set aside and not returned. Please include the name of your employer andfax number. Mail forms to: Attention forms completion Department of Trauma and EGS [address], [address] [place] [address] If you notice the following symptoms Contact the [facility] Careline at . If unable to contact your physician and you feel it is an emergency, go to the nearest Emergency Room or call [phone] Diet Instructions DIET: Regular diet with nectar thickened liquids. Speech Therapy Recommendations: Compensatory Strategies: Chin Tuck, effortful swallow. Recommendations include: Use of a regular consistency diet and Level 2- mildly thick liquids.Thicken the liquids in a thin broth soup. Liquids via single sips only; effortful swallow, slight chin tuck.Oral medications in puree only, large pills crushed. OOB or fully upright for all meals.Stringent oral care.Standard aspiration precautionsResistive pharyngeal exercise Activity Instructions ACTIVITY: Walk at least 150 feet daily to prevent blood clots. No heavy lifting greater than 10lbs or strenuous activities for 6weeks. Post Head Injury Instructions Most patients (approximately 90%) who suffer a head injury recover within the first 12 weeks following injury. It is impossible to know how long your symptoms will last. Findings, or lack of, on a head CT scan are not predictive of how long recovery will take. Avoid all activity that puts you at risk for a repeat head injury within the next six (6) months.This is to prevent the so calledSecond Impact Syndrome.Examples would include climbing ladders, step stools, horseback riding, ATV/motorcycles without a helmet, contact sports, law enforcement, etc. You should not drive or operate a motorized device of any kind until cleared by a physician to do so. Symptoms that you may experience from a head injury include headache, dizziness, nausea, visual disturbances, sensitivity to lights, personality changes, short term memory loss, problems getting to sleep, problems staying asleep, problems with speech including word finding problems, and personalitychanges. The onset of any of these symptoms should cause you to cease activity and rest or take a nap. Any symptoms that are severe or unrelenting should be evaluated in the nearest Emergency Department. It is common to need a nap every day during the recovery period and this is expected. You are notallowed to drive a car or operate any devices that require mental alertness during this time. Trying to work thru symptoms by taking pain medications and pushing on will only cause both an increasein symptom severity and prolong your recovery time. If you had a laceration and have sutures/dane in your head, you may shower and wash over these including shampoo. You can use a handheld blow dryer. You should not use hair chemicals such as color or perms until the laceration is fully healed. At follow-up appointments, you might be referred to a rehabilitation physician for evaluation in the concussion clinic which is located at the [facility]. You might also be asked to see physical or speech therapists. If Neurosurgery was involved in your care, you might need a follow-up in their clinic as well. These arenecessary appointments to your recovery. Please call the trauma office at [phone] with questions regarding the above. Helpful Hints Gradually increase activity as you are able. Elevate your head of bed at least 20 degrees. Get plenty of rest. Avoid alcohol and any recreational drugs. These may have an exaggerated effect. Simplify your life and follow a consistent daily routine. Turn off the TV/radio/other distractions when performing a task. Write things down. Follow-Up Appointments Someone Will Contact You Regarding These Appointments Provider or Location Time Frame Details about visit Trauma Surgery If you have not been contacted with this appointment information within two business days, please call Surgery Specialties Scheduling [phone]. The Following Services Have Been Arranged for You Service: Organization: Business Address: Phone Number: [facility] [address], [address] Tests Pending None Procedures Performed None Nursing Assessment Alvarez: Male External Urinary Device Insert Date:03/24/24 12:44 Removal Date:No Removal Currently Documented. SPECIAL NEEDS: Sensory Deficits: Sensation/Touch deficit Level of Consciousness Neuro: Alert Neurological Symptoms: Weakness ADLS: Moderate assistance Last BM: 03/23/2024 Basic Skin Assessment: [place], Warm, Dry, Bruised Special Instructions Common Emergency Awareness Tips Substance abuse counseling, evaluation and follow up: Call your insurance company for appropriate referral service If no insurance, contact [place] [facility] Sub[facility] Information [place] number: Call 911 immediately if: experiencing any of the warning signs and symptoms of stroke: B.E. F.A.S.T. Balance: is there trouble with walking or coordination Eyes: is there double vision or visual loss Face: Smile, do both sides of face move equally Arm: Raise arms, do both arms move equally Speech: Is speech slurred or inappropriate Time: Time is critical, call 911 immediately Heart Attack Signs Chest discomfort: Most heart attacks involve discomfort in the center of the chest and lasts more than a few minutes, or goes away and comes back. It can feel like uncomfortable pressure, squeezing, fullness or pain. Discomfort in upper body: Symptoms can include pain or discomfort in one or both arms, back, neck, jaw or stomach. Shortness of breath: With or without discomfort. Other signs: Breaking out in a cold sweat, nausea, or lightheaded. Remember, MINUTES DO MATTER. If you experience any of these heart attack warning signs, call to get immediate medical attention! Patient Care team information Care Team Personnel Name: DO Meyer William Price Position: Referring Member Role: Primary Care Provider Address: [address] [address] Name: Bee Inman Position: Admissions I Name: MD Saumya, Ephraim Breen Position: Physician Member Role: Consulting (5 day after disch/visit) Address: [address] [place] [id number] [place] Care Team Related Persons Name: SADIA JEFFREY Name: GARCIA JEFFREY
--- NOTE | 2024-03-31 04:10 | History & Physical Report ---
Date of Service March 31, 2024 Assessment & Plan (1) Frequent falls: Plan: Patient reports ambulatory dysfunction at baseline. Is concerned that he is not receiving enough rehab at his current facility -PT/OT evaluation -Fall precautions (2) UTI (urinary tract infection): Plan: UA suggestive of UTI. Patient with sepsis on arrival - tachycardia and leukocytosis. No cultures sent from ER -Ceftriaxone (3) Pneumonia: Plan: CT findings suggestive of PNA. Patient with aspiration event noted while at [facility] [facility]. -Aspiration precautions -Ceftriaxone and Doxycycline -Supplemental O2 as needed -Tylenol PRN -Zofran PRN Plan Chronic pain -Continue Duloxetine -Clonazepam QID -Lyrica -Tramadol HLP -Continue Simvastatin F/E/N - LR at 80mL/hr x 2L, electrolytes WNL, Regular diet as tolerated with aspiration precautions Ppx - SCDs Code - full Dispo - Admit to medical Admission and Anticipated Discharge Date Admission Date: March 31, 2024 History of Present Illness Chief Complaint: fever, confusion Primary Care Provider: DO Tyson Thomas Rachele is an 88yo male with recent admission to [facility] following multiple falls. He was found to have an occipital bone fracture and a 7th rib fracture. He was discharged to a rehabilitation facility in [place] on 03/28/24. Patient presented to the ER earlier today with report of fever x 2 days and episodes of confusion. His daughter was present initially who states that patient was likely hallucinating. During my encounter patient is sleeping soundly, easily arousable. No family at bedside. He confirms 2 days of fever and feels that he may have been a little confused earlier today. Otherwise, no complaints- denies chest pain, palpitations, abdominal pain, nausea, vomiting. On arrival to the ER patient tachycardic, tachypneic and hypoxic on room air at 85%. He was placed on supplemental O2 with improvement. ER Course: Ceftriaxone Doxycycline Allergies Allergy/AdvReac Type Severity Reaction Status Date / Time No Known Allergies Allergy Unknown Verified 03/14/24 13:45 Home Medications Medication Instructions Recorded Confirmed Type multivitamin 1 tab PO QAM 03/01/18 03/31/24 History acetaminophen 500 mg tablet 500 - 1,000 mg PO DIRECTED PRN 04/02/20 03/31/24 History FEVER/PAIN sennosides 8.6 mg-docusate sodium 1 tab-cap PO BID 06/29/20 03/31/24 History 50 mg tablet (Senna with Docusate Sodium) omega-3 fatty acids 150 mg-fish 1 cap PO BID #0 caps 09/03/21 03/31/24 History oil 400 mg capsule simvastatin 80 mg tablet 80 mg PO HS #100 tabs 03/27/23 03/31/24 Rx sildenafil 50 mg tablet 50 mg PO DAILY PRN sexual activity 05/23/23 03/31/24 Rx #6 tabs pregabalin 150 mg capsule (Lyrica) 150 mg PO TID 30 days #90 caps 10/16/23 03/31/24 Rx duloxetine 60 mg capsule,delayed 60 mg PO QAM #90 caps 11/21/23 03/31/24 Rx release clonazepam 1 mg tablet 0.5 mg (1/2 x 1 mg) PO QID 30 days 12/29/23 03/31/24 Rx #60 tabs duloxetine 30 mg capsule,delayed 30 mg PO QPM #30 caps 02/05/24 03/31/24 Rx release (Cymbalta) aspirin 81 mg tablet,delayed 81 mg PO DAILY #30 tabs 02/22/24 03/31/24 Rx release (Adult Aspirin Regimen) tramadol 50 mg tablet 50 mg PO Q6H PRN pain #120 tabs 02/29/24 03/31/24 Rx Past Med/Surg History Problem List (Updated 03/31/24 @ 04:32 by Lauren Escobar DO) Pneumonia UTI (urinary tract infection) Frequent falls (Acute) Skull fracture (Acute) Microcytic anemia Orthostatic hypotension Mitral regurgitation Hypovitaminosis D Erectile dysfunction Elevated C-reactive protein (CRP) Elevated erythrocyte sedimentation rate Ataxia Carotid artery stenosis follows Dr.karla wood /Reva Weakness Hypotension Elevated troponin Bradycardia (Chronic) Peripheral neuropathy Hyperlipidemia Anxiety Gmwswyt-Vtidx-Padfd disease (Chronic) Gait abnormality Fall Sleep disturbance, unspecified Polyneuropathy Peripheral vascular disease Personal history of tuberculosis (10/17/12) PAD (peripheral artery disease) Neuropathic pain Memory impairment Hypercholesteremia Hereditary sensorimotor neuropathy Heart murmur Hypertension (Chronic 10/17/12) Chronic obstructive pulmonary disease Left groin mass Back problem Reducible left inguinal hernia SSS (sick sinus syndrome) (Acute) 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 oGldman 12/25/2019 Person under investigation for COVID-19 (Acute) Unintentional weight loss Urinary incontinence Stool incontinence Aortic stenosis Trouble swallowing Charcot-Rebecca disease Dysphagia Carotid stenosis (Chronic) Stroke-like symptoms Somnolence, daytime Severe sleep apnea Nocturnal hypoxemia Preop examination Medicare annual wellness visit, subsequent CMT (Ofkzdhb-Ixbax-Rmkzp disease) Hemoptysis Medical History Peripheral neuropathy Osteoarthritis Chronic back pain Anxiety Chronic obstructive pulmonary disease per records/patient denies SSS (sick sinus syndrome) sees cardiology Hypertension hx Sleep apnea no machine Tuberculosis age 32> CXR (-) since Dyslipidemia Skin cancer see Mohs procedure Surgical History History of tooth extraction History of adenoidectomy History of tonsillectomy History of colonoscopy S/P Mohs surgery for basal cell carcinoma right ear to chin to left side of jaw bone History of cholecystectomy ~2012 H/O discectomy lumbar Family History Daughter Acute ischemic enteritis Mother Alzheimer disease Dementia Breast cancer Jlirlbv-Hwpep-Gbcxp disease Father Coronary heart disease Pacemaker Hypertension Myocardial infarction Brother Coronary heart disease Hx of CABG Stroke Myocardial infarction Sister Diverticulosis of intestine Grandfather Cancer Other Diabetes Family history non-contributory Denies family history of Ovarian cancer Prostate cancer Colorectal cancer Social History Smoking Status: Unknown if ever smoked Tobacco Type: Cigarettes Age Started Using Tobacco: 14; Age Quit Using Tobacco: 60; packs per day: 0.75; Cigarettes Per Day: <20; Second Hand Exposure: No; Do You Dip or Chew Tobacco: No; Hx Alcohol Use: No Hx Substance Use: No Preferred Language: Dominican Communication Ability: Effective Visual Impairment: No Limitations Hearing Ability: Normal Hearing Care Practitioner Required: No Beliefs That Will Affect Care: None marital status: Current Living Situation: Alone Current Living Situation Comment: [facility] current occupational status: retired Feels Safe at Home: Yes Childhood Exposure to Second-Hand Smoke: Yes Diet: regular caffeine: Yes Dental Care, Regularly: No Physical Activity Frequency: 1-2 Times per Week Seatbelt Use: always Sunscreen Use: Yes Assistive Devices: Cane, Denture - Upper, Denture - Lower, Glasses and Walker Review of Systems Review of Systems: All systems reviewed & are unremarkable except as noted in HPI & below Physical Exam Physical Exam: General: patient resting comfortably, NAD, non-toxic in appearance, AA&O x 4 Skin: warm, dry, intact, no rashes or lesions HEENT: NC/AT, PERRL, EOMI, anicteric sclera, conjunctiva without injection, external ear normal to inspection and nontender, nares patent, moist mucus membranes, dentition intact, no oropharyngeal lesions, neck supple, trachea midline, no LAD, no thyromegaly, no JVD Heart: +S1/S2, regular, no m/r/g Lungs: equal air entry bilaterally, crackles in bilateral bases, no wheeze or rhonchi Abd: +BS, soft, NT/ND, no masses/organomegaly/ascites Ext: warm, 2+ pulses in UE/LE bilaterally, no clubbing/cyanosis or edema Neuro: nonfocal, patient AA&O x 4, speech intact, no facial droop, moving all extremities on command with equal strength 5/5 Results & Data Results & Data Vital Signs (Past 12 Hours) Vital Signs Temp Pulse Pulse Resp BP BP Pulse Ox 03/31/24 03:31 85 20 132/89 94 03/31/24 00:03 85 L 03/31/24 00:00 126 H 25 H 94 03/31/24 00:00 120 H 24 115/79 93 03/30/24 23:45 115 H 03/30/24 23:38 37.4 C 112 H 20 116/78 85 L O2 Del Method O2 Flow Rate 03/31/24 03:31 Nasal Cannula 2 03/31/24 00:03 Room Air, Nasal Cannula 2 03/31/24 00:00 Nasal Cannula 2 03/31/24 00:00 Nasal Cannula 2 03/30/24 23:45 03/30/24 23:38 Room Air Laboratory Results Laboratory Results WBC 25.78 K/ul (4.8-10.8) H 03/30/24 23:52 RBC 4.77 M/uL (4.70-6.10) 03/30/24 23:52 Hgb 12.5 g/dl (14.0-18.0) L 03/30/24 23:52 Hct 40.0 % (42.0-52.0) L 03/30/24 23:52 MCV 83.9 fL (80.0-100.0) 03/30/24 23:52 MCH 26.2 pg (25.0-34.0) 03/30/24 23:52 MCHC 31.3 g/dL (32.0-36.0) L 03/30/24 23:52 RDW Std Deviation 49.0 fL (36.4-46.3) H 03/30/24 23:52 RDW Coeff of Renny 16.0 % (11.5-14.5) H 03/30/24 23:52 Plt Count 338 K/uL (130-400) 03/30/24 23:52 MPV 10.1 fL (9.4-12.4) 03/30/24 23:52 Immature Gran % (Auto) 0.8 % 03/30/24 23:52 Neut % (Auto) 82.8 % 03/30/24 23:52 Lymph % (Auto) 5.4 % 03/30/24 23:52 Jewell % (Auto) 10.6 % 03/30/24 23:52 Eos % (Auto) 0.0 % 03/30/24 23:52 Baso % (Auto) 0.4 % 03/30/24 23:52 Neut # (Auto) 21.37 K/uL (1.40-6.50) H 03/30/24 23:52 Lymph # (Auto) 1.38 K/uL (1.20-3.40) 03/30/24 23:52 Jewell # (Auto) 2.72 K/uL (0.11-0.59) H 03/30/24 23:52 Eos # (Auto) 0.01 K/uL (0.00-0.50) 03/30/24 23:52 Baso # (Auto) 0.10 K/uL (0.00-0.20) 03/30/24 23:52 Immature Gran # (Auto) 0.20 K/uL (0.01-0.20) 03/30/24 23:52 Polychromasia 1+ 03/30/24 23:52 Sodium 137 mmol/L (136-145) 03/30/24 23:52 Potassium 4.3 mmol/L (3.5-5.1) 03/30/24 23:52 Chloride 103 mmol/L (98-107) 03/30/24 23:52 Carbon Dioxide 27 mmol/L (21-32) 03/30/24 23:52 Anion Gap 7 (3-11) 03/30/24 23:52 BUN 28 mg/dl (6-23) H 03/30/24 23:52 Creatinine 0.92 mg/dl (0.6-1.4) 03/30/24 23:52 Est Cr Clr Drug Dosing 62.7 ml/min 03/30/24 23:52 eGFR 80.01 03/30/24 23:52 BUN/Creatinine Ratio 30.4 (10-20) H 03/30/24 23:52 Glucose 161 mg/dl (70-99(Fasting)) H 03/30/24 23:52 Calcium 9.5 mg/dl (8.6-10.3) 03/30/24 23:52 Total Bilirubin 0.4 mg/dl (0.2-1.0) 03/30/24 23:52 AST 26 U/L (13-39) 03/30/24 23:52 ALT 33 U/L (7-52) 03/30/24 23:52 Alkaline Phosphatase 101 U/L (34-104) 03/30/24 23:52 Troponin I High Sens 38.7 pg/ml (0-20) H 03/31/24 01:35 Total Protein 7.7 gm/dl (6.0-8.3) 03/30/24 23:52 Albumin 3.8 gm/dl (3.4-5.0) 03/30/24 23:52 Globulin 3.9 gm/dl (2.5-4.0) 03/30/24 23:52 Albumin/Globulin Ratio 1.0 (0.9-2) 03/30/24 23:52 Urine Color Yellow 03/31/24 00:10 Urine Appearance Cloudy (Clear) A 03/31/24 00:10 Urine pH 5.5 (4.5-7.5) 03/31/24 00:10 Ur Specific [place] 1.023 (1.000-1.030) 03/31/24 00:10 Urine Protein 1+ (Negative) H 03/31/24 00:10 Urine Glucose (UA) Negative (Negative) 03/31/24 00:10 Urine Ketones Trace (Negative) H 03/31/24 00:10 Urine Blood 2+ (Negative) H 03/31/24 00:10 Urine Nitrite Positive (Negative) A 03/31/24 00:10 Urine Bilirubin Negative (Negative) 03/31/24 00:10 Urine Urobilinogen Negative (Negative) 03/31/24 00:10 Ur Leukocyte Esterase 2+ (Negative) H 03/31/24 00:10 Urine WBC (Auto) 21-50 /hpf (0-5) H 03/31/24 00:10 Urine RBC (Auto) 11-20 /hpf (0-2) H 03/31/24 00:10 U Hyaline Cast (Auto) 0-2 /lpf (0-2) 03/31/24 00:10 U Epithel Cells (Auto) 0-2 /hpf (0-2) 03/31/24 00:10 Urine Bacteria (Auto) 4+ (None Seen) H 03/31/24 00:10 Adenovirus (PCR) Not Detected (NotDetected) 03/31/24 00:00 B. pertussis DNA (PCR) Not Detected (NotDetected) 03/31/24 00:00 B.parapertussis DNA PCR Not Detected (NotDetected) 03/31/24 00:00 C. pneumoniae DNA (PCR) Not Detected (NotDetected) 03/31/24 00:00 Coronavirus OC43 (PCR) Not Detected (NotDetected) 03/31/24 00:00 Coronavirus HKU1 (PCR) Not Detected (NotDetected) 03/31/24 00:00 Coronavirus 229E (PCR) Not Detected (NotDetected) 03/31/24 00:00 SARS-CoV-2 (PCR) Not Detected (NotDetected) 03/31/24 00:00 Coronavirus NL63 (PCR) Not Detected (NotDetected) 03/31/24 00:00 Human Metapneumovir PCR Not Detected (NotDetected) 03/31/24 00:00 Influenza Type A (PCR) Not Detected (NotDetected) 03/31/24 00:00 Influenza Type B (PCR) Not Detected (NotDetected) 03/31/24 00:00 M. pneumoniae (PCR) Not Detected (NotDetected) 03/31/24 00:00 Parainfluenza 1 (PCR) Not Detected (NotDetected) 03/31/24 00:00 Parainfluenza 2 (PCR) Not Detected (NotDetected) 03/31/24 00:00 Parainfluenza 3 (PCR) Not Detected (NotDetected) 03/31/24 00:00 Parainfluenza 4 (PCR) Not Detected (NotDetected) 03/31/24 00:00 RSV (PCR) Not Detected (NotDetected) 03/31/24 00:00 Entero/Rhino (PCR) Not Detected (NotDetected) 03/31/24 00:00 Impressions Chest CTA 03/31/24 01:00 Exam(s): CTA CHEST IV Amt: 117 cc opti 320 EXAM: CT Angiography Chest With Intravenous Contrast CLINICAL HISTORY: Reason for exam: pulm embolism, tachycardic, hypoxic. TECHNIQUE: Axial computed tomographic angiography images of the chest with intravenous contrast. CTDI is 11.87 mGy and DLP is 916.99 mGy-cm. Automated exposure control was utilized for the study. A dose lowering technique was utilized adhering to the principles of ALARA. MIP reconstructed images were created and reviewed. COMPARISON: No relevant prior studies available. FINDINGS: Pulmonary arteries: Unremarkable. No central pulmonary embolus. Aorta: No acute findings. No thoracic aortic aneurysm. Lungs: Patchy bilateral interstitial infiltrates with more confluent opacities in the lower lobes. There is a 2.8 x 1.9 cm area of nodularity seen within the left lower lobe. Diffuse changes COPD. Bilateral apical pleural scarring. Pleural space: Unremarkable. No significant effusion. No pneumothorax. Heart: Unremarkable. No cardiomegaly. No significant pericardial effusion. No evidence of RV dysfunction. Bones/joints: No acute fracture. No dislocation. Soft tissues: Unremarkable. Lymph nodes: Unremarkable. No enlarged lymph nodes. IMPRESSION: No pulmonary embolus Bibasilar predominant interstitial infiltrates more confluent opacity in the left lower lobe. While this may represent infection, underlying neoplasm cannot be entirely excluded. Recommend short interval follow-up CT to assess for resolution. Electronically signed by: Joseph Camarena MD 03/31/24 03:15 AM PG Care Time/CCT Total # of Minutes Spent Total Time Spent with Patient: Total time spent is greater than 50% in coordination of care (as documented) at patient's floor/unit and/or counseling patient: Coding Level of Care Code 58627 INT INP/OBS CARE 3/75MIN Diagnoses Frequent falls R29.6 UTI (urinary tract infection) N39.0 Pneumonia J18.9
[2024-03-31] MEDS ORDERED: ONDANSETRON INJ 2 MG/ML 2 ML VIAL IV PRN (04:15)
[2024-03-31] MEDS: LACTATED RINGER'S 1,000 ML IV SCH (06:35)
--- NOTE | 2024-03-31 07:13 | XRay Report ---
XR chest 1V portable CLINICAL HISTORY: Dyspnea COMPARISON STUDY: Chest radiograph March 18, 2024. FINDINGS: There is no pneumothorax or pleural effusion. Emphysema is present. Mild bilateral lower sherron ng airspace opacities are present. There is no evidence for pulmonary edema. Cardiomediastinal silhou ette is stable. Biapical scarring. IMPRESSION: 1. Mild bibasilar opacities which could reflect an infectious process or atelectasis. Radiographic fo llow-up to ensure resolution is recommended. 2. Emphysema. ACT 112: Negative or not required by law. Electronically signed by: Derrell Olson M.D. 03/31/2024 7:12 AM
[2024-03-31] MEDS: INFLUENZA VACC TS2024-25(65y+)/PF (IIV3) 0.5mL Syr IM ONE (09:03)
[2024-03-31] MEDS: clonazePAM 0.5 MG TAB PO SCH (10:05)
[2024-03-31] MEDS: PREGABALIN 150 MG CAP PO SCH (10:05)
[2024-03-31] MEDS: DOCUSATE SODIUM/SENNA 50/8.6MG TAB PO SCH (10:05)
[2024-03-31] MEDS: DOXYCYCLINE HYCLATE 100 MG in DEXTROSE 5% MINI-B 100 ML IV SCH (10:05)
[2024-03-31] MEDS: ASPIRIN 81 MG ECTAB PO SCH (10:05)
[2024-03-31] MEDS: DULoxetine HCL 60 MG CAP PO SCH (10:05)
--- NOTE | 2024-03-31 14:00 | Electrocardiogram Report ---
Test Reason : Blood Pressure : */* mmHG Vent. Rate : 107 BPM Atrial Rate : 107 BPM P-R Int : 216 ms QRS Dur : 80 ms QT Int : 376 ms P-R-T Axes : * 42 68 degrees QTcB Int : 501 ms Sinus tachycardia with 1st degree A-V block with occasional Premature ventricular complexes Nonspecific ST abnormality Abnormal ECG When compared with ECG of 18-Mar-2024 15:21, Premature ventricular complexes are now Present Premature atrial complexes are no longer Present Vent. rate has increased by 46 bpm Criteria for Septal infarct are no longer Present ST elevation now present in Inferior leads QT has lengthened Confirmed by Jean-Paul Macedo ([id number]) on 03/31/2024 2:00:35 PM Referred By: REFERRED SELF Confirmed By: Jean-Paul Macedo
--- NOTE | 2024-03-31 14:19 | Hospitalist Progress Note ---
<Statement entered by Luna Soliz MD - 03/31/24 18:05> I have reviewed vital signs, chart notes, labs and imaging. I have personally seen, evaluated and examined the patient. I have also discussed the management of the patient with the CHANDRA and I agree with the exam findings documented in the history and physical examination and the documented assessment and plan unless otherwise stated below. My exam he is a frail appearing man who appears comfortable and is alert and oriented x 4, lung exam notable for bibasilar crackles but no wheezing nonlabored, abdomen is soft nontender nondistended no suprapubic tenderness and he does does deny dysuria and abdominal pain. I personally reviewed the records from recent admission at [facility] including a discharge summary from the trauma service as well as geriatric consult service/internal medicine notes. Sepsis related to aspiration pneumonia/pneumonitis or urinary tract infectionsepsis improved seems to be responding to current antibiotics ceftriaxone and doxycycline so we will continue these. If he has any clinical worsening would broaden antibiotics to cover broader range of gram-negative organisms and Pseudomonas ( i.e. 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 Dysphagiahe does have dysphagia noted on speech therapy evaluation at [facility], they recommended mildly thickened liquids. I think the evidence base is poor that thickener improves prognosis from aspiration. he has a abnormal CT with multiple pulmonary nodules the will require short- term follow-up chest CT. these may be inflammatory or infectious in nature however underlying malignancy is possible other notable findings on abdominal CT done at [facility] including fatty liver, 5 x 5 cm AAA, renal cysts and extensive ASCVD, prostatomegaly with calcifications he has history of Charcot Rebecca tooth with peripheral neuropathy and pain related to this. Unfortunately his polypharmacy may be contributing to his falls. At recent discharge it was recommended to discontinue tramadol however this had to be restarted at [facility] because of pain. Clonazepam was also tapered to 0.5 mg 3 times daily from previous long-term dosing of 1 mg twice daily. I fully agree with these recommendations and I did discuss that with him today. His minimal HS-troponin elevation of 25-34-38, no acute ischemic changes on EKG and no chest pain. This is consistent with very mild myocardial demand ischemia Date of Service March 31, 2024 Assessment & Plan (1) Pneumonia: Plan: CT findings suggestive of PNA. Patient with aspiration event noted while at [facility]. -WBC 25.78 -Reports improvement of chills and confusion. He is AAOx3. -Aspiration precautions -Ceftriaxone and Doxycycline. -MRSA nares -Supplemental O2 as needed, currently on RA -Tylenol PRN -Zofran PRN (2) Frequent falls: Plan: Patient reports ambulatory dysfunction at baseline. Is concerned that he is not receiving enough rehab at his current facility -PT/OT evaluation -Fall precautions (3) UTI (urinary tract infection): Plan: UA suggestive of UTI, culture is pending. Patient with sepsis on arrival - tachycardia and leukocytosis. No cultures sent from ER -Ceftriaxone Plan Chronic pain -Continue Duloxetine -Clonazepam QID -Lyrica -Tramadol HLP -Continue Simvastatin F/E/N - LR at 80mL/hr x 2L, electrolytes WNL, Regular diet as tolerated with aspiration precautions Ppx - SCDs Code - full Dispo - Admit to medical Admission and Anticipated Discharge Date Admission Date: March 31, 2024 Alcides Mehta is an 88 y/o man who presented to the ER yesterday with reports of fever x 2 days and episodes of confusion. He was recently admitted to [facility] following multiple falls. He was found to have an occipital bone fracture and a 7th rib fracture. He was discharged to [facility] in [place] on 03/28/2024. Upon arrival, WBC elevated at 25.78 Tyson is resting comfortably. He is AAOx3. 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 He does remember having episodes of confusion and fevers, but feels those both have resolved. He denies any CP, SOB, n/v/d, abdominal pain, fevers or chills. He is now on RA sating 94%. 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) Integumentary: no rash Neurologic: + unsteadiness (Chronic - secondary to C MT) Psychiatric: no confusion Physical Exam Constitutional: + thin; no acute distress Eyes: PERRL, conjunctivae normal, anicteric sclerae Neck: normal visual inspection Respiratory: normal respiratory effort; no respiratory distress and no labored breathing Auscultation: lungs clear to auscultation bilaterally (Diminished in bases) Cardiovascular: Rate/Rhythm: regular rate and regular rhythm Extremities: no edema Gastrointestinal (Abdomen): Inspection/Auscultation: normal bowel sounds; abdomen not distended Neurologic: awake Psychiatric: Orientation: alert and oriented x 3 Results & Data Results & Data Vital Signs (Past 12 Hours) Vital Signs Temp Pulse Pulse Resp BP Pulse Ox O2 Del Method 03/31/24 14:09 85 14 121/73 94 Room Air 03/31/24 07:37 81 03/31/24 06:47 36.7 C 86 18 131/85 93 Room Air 03/31/24 05:04 Nasal Cannula 03/31/24 05:04 36.8 C 97 H 19 132/81 97 Room Air 03/31/24 03:31 85 20 132/89 94 Nasal Cannula O2 Flow Rate 03/31/24 14:09 03/31/24 07:37 03/31/24 06:47 03/31/24 05:04 2 03/31/24 05:04 2 03/31/24 03:31 2 Laboratory Results 03/31/24 03/31/24 03/31/24 Range/Units 01:35 00:10 00:00 WBC (4.8-10.8) K/ul RBC (4.70-6.10) M/uL Hgb (14.0-18.0) g/dl Hct (42.0-52.0) % MCV (80.0-100.0) fL MCH (25.0-34.0) pg MCHC (32.0-36.0) g/dL RDW Std Deviation (36.4-46.3) fL RDW Coeff of Renny (11.5-14.5) % Plt Count (130-400) K/uL MPV (9.4-12.4) fL Immature Gran % (Auto) % Neut % (Auto) % Lymph % (Auto) % [place] % (Auto) % Eos % (Auto) % Baso % (Auto) % Neut # (Auto) (1.40-6.50) K/uL Lymph # (Auto) (1.20-3.40) K/uL [place] # (Auto) (0.11-0.59) K/uL Eos # (Auto) (0.00-0.50) K/uL Baso # (Auto) (0.00-0.20) K/uL Immature Gran # (Auto) (0.01-0.20) K/uL Polychromasia Sodium (136-145) mmol/L Potassium (3.5-5.1) mmol/L Chloride (98-107) mmol/L Carbon Dioxide (21-32) mmol/L Anion Gap (3-11) BUN (6-23) mg/dl Creatinine (0.6-1.4) mg/dl Est Cr Clr Drug Dosing ml/min eGFR BUN/Creatinine Ratio (10-20) Glucose (70-99(Fasting)) mg/dl Calcium (8.6-10.3) mg/dl Magnesium 2.0 (1.7-2.4) mg/dl Total Bilirubin (0.2-1.0) mg/dl AST (13-39) U/L ALT (7-52) U/L Alkaline Phosphatase (34-104) U/L Troponin I High Sens 38.7 H (0-20) pg/ml Total Protein (6.0-8.3) gm/dl Albumin (3.4-5.0) gm/dl Globulin (2.5-4.0) gm/dl Albumin/Globulin Ratio (0.9-2) Urine Color Yellow Urine Appearance Cloudy A (Clear) Urine pH 5.5 (4.5-7.5) Ur Specific [place] 1.023 (1.000-1.030) Urine Protein 1+ H (Negative) Urine Glucose (UA) Negative (Negative) Urine Ketones Trace H (Negative) Urine Blood 2+ H (Negative) Urine Nitrite Positive A (Negative) Urine Bilirubin Negative (Negative) Urine Urobilinogen Negative (Negative) Ur Leukocyte Esterase 2+ H (Negative) Urine WBC (Auto) 21-50 H (0-5) /hpf Urine RBC (Auto) 11-20 H (0-2) /hpf U Hyaline Cast (Auto) 0-2 (0-2) /lpf U Epithel Cells (Auto) 0-2 (0-2) /hpf Urine Bacteria (Auto) 4+ H (None Seen) Adenovirus (PCR) Not Detected (NotDetected) B. pertussis DNA (PCR) Not Detected (NotDetected) B.parapertussis DNA PCR Not Detected (NotDetected) C. pneumoniae DNA (PCR) Not Detected (NotDetected) Coronavirus OC43 (PCR) Not Detected (NotDetected) Coronavirus HKU1 (PCR) Not Detected (NotDetected) Coronavirus 229E (PCR) Not Detected (NotDetected) SARS-CoV-2 (PCR) Not Detected (NotDetected) Coronavirus NL63 (PCR) Not Detected (NotDetected) Human Metapneumovir PCR Not Detected (NotDetected) Influenza Type A (PCR) Not Detected (NotDetected) Influenza Type B (PCR) Not Detected (NotDetected) M. pneumoniae (PCR) Not Detected (NotDetected) Parainfluenza 1 (PCR) Not Detected (NotDetected) Parainfluenza 2 (PCR) Not Detected (NotDetected) Parainfluenza 3 (PCR) Not Detected (NotDetected) Parainfluenza 4 (PCR) Not Detected (NotDetected) RSV (PCR) Not Detected (NotDetected) Entero/Rhino (PCR) Not Detected (NotDetected) 03/30/24 Range/Units 23:52 WBC 25.78 H (4.8-10.8) K/ul RBC 4.77 (4.70-6.10) M/uL Hgb 12.5 L (14.0-18.0) g/dl Hct 40.0 L (42.0-52.0) % MCV 83.9 (80.0-100.0) fL MCH 26.2 (25.0-34.0) pg MCHC 31.3 L (32.0-36.0) g/dL RDW Std Deviation 49.0 H (36.4-46.3) fL RDW Coeff of Renny 16.0 H (11.5-14.5) % Plt Count 338 (130-400) K/uL MPV 10.1 (9.4-12.4) fL Immature Gran % (Auto) 0.8 % Neut % (Auto) 82.8 % Lymph % (Auto) 5.4 % [place] % (Auto) 10.6 % Eos % (Auto) 0.0 % Baso % (Auto) 0.4 % Neut # (Auto) 21.37 H (1.40-6.50) K/uL Lymph # (Auto) 1.38 (1.20-3.40) K/uL [place] # (Auto) 2.72 H (0.11-0.59) K/uL Eos # (Auto) 0.01 (0.00-0.50) K/uL Baso # (Auto) 0.10 (0.00-0.20) K/uL Immature Gran # (Auto) 0.20 (0.01-0.20) K/uL Polychromasia 1+ Sodium 137 (136-145) mmol/L Potassium 4.3 (3.5-5.1) mmol/L Chloride 103 (98-107) mmol/L Carbon Dioxide 27 (21-32) mmol/L Anion Gap 7 (3-11) BUN 28 H (6-23) mg/dl Creatinine 0.92 (0.6-1.4) mg/dl Est Cr Clr Drug Dosing 62.7 ml/min eGFR 80.01 BUN/Creatinine Ratio 30.4 H (10-20) Glucose 161 H (70-99(Fasting)) mg/dl Calcium 9.5 (8.6-10.3) mg/dl Magnesium (1.7-2.4) mg/dl Total Bilirubin 0.4 (0.2-1.0) mg/dl AST 26 (13-39) U/L ALT 33 (7-52) U/L Alkaline Phosphatase 101 (34-104) U/L Troponin I High Sens 34.5 H (0-20) pg/ml Total Protein 7.7 (6.0-8.3) gm/dl Albumin 3.8 (3.4-5.0) gm/dl Globulin 3.9 (2.5-4.0) gm/dl Albumin/Globulin Ratio 1.0 (0.9-2) Urine Color Urine Appearance (Clear) Urine pH (4.5-7.5) Ur Specific [place] (1.000-1.030) Urine Protein (Negative) Urine Glucose (UA) (Negative) Urine Ketones (Negative) Urine Blood (Negative) Urine Nitrite (Negative) Urine Bilirubin (Negative) Urine Urobilinogen (Negative) Ur Leukocyte Esterase (Negative) Urine WBC (Auto) (0-5) /hpf Urine RBC (Auto) (0-2) /hpf U Hyaline Cast (Auto) (0-2) /lpf U Epithel Cells (Auto) (0-2) /hpf Urine Bacteria (Auto) (None Seen) Adenovirus (PCR) (NotDetected) B. pertussis DNA (PCR) (NotDetected) B.parapertussis DNA PCR (NotDetected) C. pneumoniae DNA (PCR) (NotDetected) Coronavirus OC43 (PCR) (NotDetected) Coronavirus HKU1 (PCR) (NotDetected) Coronavirus 229E (PCR) (NotDetected) SARS-CoV-2 (PCR) (NotDetected) Coronavirus NL63 (PCR) (NotDetected) Human Metapneumovir PCR (NotDetected) Influenza Type A (PCR) (NotDetected) Influenza Type B (PCR) (NotDetected) M. pneumoniae (PCR) (NotDetected) Parainfluenza 1 (PCR) (NotDetected) Parainfluenza 2 (PCR) (NotDetected) Parainfluenza 3 (PCR) (NotDetected) Parainfluenza 4 (PCR) (NotDetected) RSV (PCR) (NotDetected) Entero/Rhino (PCR) (NotDetected) PG Care Time/CCT Total # of Minutes Spent Total Time Spent with Patient: Total time spent is greater than 50% in coordination of care (as documented) at patient's floor/unit and/or counseling patient: C[place] [address] SUB INP/OBS CARE 2/35MIN Patient Type Established History Expanded Problem Focused Exam Expanded Problem Focused Medical Decision Making Moderate Complexity Diagnoses Pneumonia J18.9 Frequent falls R29.6 UTI (urinary tract infection) N39.0
[2024-03-31] MEDS: cefTRIAXone SODIUM 2,000 MG/50 ML BAG IV SCH (21:29)
[2024-03-31] MEDS: traMADol HCL 50 MG TABLET PO PRN (21:31)
[2024-03-31] MEDS: DULoxetine HCL 30 MG CAP PO SCH (21:32)
[2024-03-31] MEDS: SIMVASTATIN 80 MG TAB PO SCH (21:32)
[2024-04-01 06:35] LABS: Hematocrit (blood only) 34.4 % (42.0-52.0); Mean Corpuscular Hemoglobin 26.6 pg (25.0-34.0); Mean Corpuscular Volume 83.1 fL (80.0-100.0); Mean Platelet Volume 10.4 fL (9.4-12.4); Platelet Count 238 K/uL (130-400); RDW Coefficient of Variation 15.9 % (11.5-14.5); RDW Standard Deviation 48.9 fL (36.4-46.3); Red Blood Count 4.14 M/uL (4.70-6.10); White Blood Count 16.85 K/ul (4.8-10.8)
[2024-04-01 06:54] LABS: BUN Creatinine Ratio 29.9 (10-20); Calcium 9.1 mg/dl (8.6-10.3); Creatinine Clr Calc Pharmacy 72.8 ml/min; Potassium 3.9 mmol/L (3.5-5.1)
--- NOTE | 2024-04-01 13:06 | Hospitalist Progress Note ---
<Statement entered by Luna Soliz MD - 04/01/24 17:12> I have reviewed vital signs, chart notes, labs and imaging. I have personally seen, evaluated and examined the patient. I have also discussed the management of the patient with the CHANDRA and I agree with the exam findings documented in the history and physical examination and the documented assessment and plan unless otherwise stated below. Unclear to me whether fever was related to an aspiration pneumonia/pneumonitis or UTI, however, seems more likely UTI since he has been on room air and chest CT findings on admission seem the same as chest CT from [facility] where he had already been treated for pneumonia. In addition procalcitonin was very low. urine culture is still pending greater than 100,000 gram-negative rods. Tyson feels well and he is asymptomatic he has had no more fevers not short of breath not coughing no abdominal pain no suprapubic tenderness or pain and no dysuria breath sounds are distant but relatively clear breathing is nonlabored abdomen is soft nontender nondistended, he has no leg edema he looks very well today and I think he should be able to return to his nursing facility tomorrow he does need repeat chest CT at a short interval perhaps 3 to 6 weeks for multiple pulmonary nodules. He also has a 5 x 5 cm AAA present on abdominal imaging from [place] that will require follow-up as well as renal cysts I discussed his aspiration with speech therapist who evaluated him today. He is known to have aspiration and has had several video swallow studies here at [facility] and he aspirates whether or not he is using thin liquids or thick liquids, also thickener does not prevent aspiration events or pneumonias, therefore would rather not recommend using thickener moving forward he should stay on thin liquids. He does not not like the thickener and does not want to use it. He is not interested in tube feeding long-term. Please see my previous addendum for other current problems including: Sepsis related to aspiration pneumonia/pneumonitis or urinary tract infection, sepsis has resolved COPD/emphysema and bronchiectasis minimal elevation of high-sensitivity troponin, no evidence of acute coronary syndrome, consistent with mild myocardial demand ischemia dysphagia and aspiration multiple pulmonary nodules may be inflammatory or infectious in nature, follow- up CT imaging required hepatic steatosis 5 x 5 cm AAA renal cysts extensive ASCVD prostatomegaly with calcifications Wdpbavv-Rhzuk-Skgcz with painful peripheral neuropathy polypharmacy, benzodiazepine dependence, clonazepam has been tapered from usual outpatient dosing of 1 mg twice daily down to 0.5 mg 3 times daily with recommendation to slowly taper off of this Date of Service April 01, 2024 Assessment & Plan (1) Pneumonia: Plan: CT findings suggestive of PNA. Patient with aspiration event noted while at [facility]. Was on thickended liquids. -WBC 25.78 -> 16.85 -CBC AM -Reports improvement of chills and confusion. He is AAOx3. -Aspiration precautions -Spoke with speech therapy; no benefit in using thickened liquids moving forward -Continue Ceftriaxone and Doxycycline. -MRSA nares, negative -Supplemental O2 as needed, currently on RA -Tylenol PRN -Zofran PRN -No repeat imaging necessary unless symptoms worsen (2) Frequent falls: Plan: Patient reports ambulatory dysfunction at baseline. Is concerned that he is not receiving enough rehab at his current facility -PT/OT evaluation -Fall precautions (3) UTI (urinary tract infection): Plan: UA suggestive of UTI, culture is pending. Patient with sepsis on arrival - tachycardia and leukocytosis. No cultures sent from ER -Cx gram negative bacilli on prelim results -No h/o pseudomonas -Ceftriaxone Plan Chronic pain -Continue Duloxetine -Clonazepam QID -Lyrica -Tramadol HLP -Continue Simvastatin F/E/N - LR at 80mL/hr x 2L, electrolytes WNL, Regular diet as tolerated with aspiration precautions Ppx - SCDs Code - full Dispo - Pending clinical improvement, possible discharge tomorrow back to [facility] Admission and Anticipated Discharge Date Admission Date: March 31, 2024 Subjective Patient is seen sitting in chair at bedside at time of visit. His daughter (Jailyn) and (Ben) are in the room. He states that today, he has no complaints. He expresses ongoing pain at the heels of bilateral feet. Patient reports no dysuria, no lower abdominal pressure or pain, no shortness of breath, no cough, no dysphagia. Otherwise denies chest pain, N/V/D/C, edema. Daughter and state that the patient has seemed to improve since admission. Review of Systems Constitutional: no fatigue Respiratory: no cough and no dyspnea Cardiovascular: no chest pain, no palpitations and no calf pain Gastrointestinal: no abdominal pain, no nausea, no vomiting, no constipation and no diarrhea/loose stools Genitourinary: no dysuria or no hematuria Musculoskeletal: + muscle atrophy (Bilateral lower calves ) Neurologic: no headache(s) and no confusion Physical Exam Constitutional: no acute distress Eyes: PERRL, conjunctivae normal, anicteric sclerae Respiratory: normal respiratory effort, lungs clear to auscultation normal respiratory effort Cardiovascular: RRR, no murmur, no edema Gastrointestinal (Abdomen): normal bowel sounds, soft, nontender, no hepatosplenomegaly Neurologic: Speech / Cognition: normal speech and normal cognition Tenderness to light palpation at site of skull fracture. Results & Data Results & Data Vital Signs (Past 12 Hours) Vital Signs Temp Pulse Pulse Resp BP BP Pulse Ox 04/01/24 11:35 36.6 C 70 18 117/63 94 04/01/24 08:00 04/01/24 07:56 36.4 C 59 L 18 139/75 94 04/01/24 07:18 73 04/01/24 03:30 36.6 C 79 20 154/79 H 94 04/01/24 02:28 73 16 99 O2 Del Method O2 Flow Rate 04/01/24 11:35 Room Air 04/01/24 08:00 Room Air 04/01/24 07:56 Room Air 04/01/24 07:18 04/01/24 03:30 Room Air, CPAP 04/01/24 02:28 2 Laboratory Results Abnormal lab results 04/01/24 Range/Units 05:46 WBC 16.85 H (4.8-10.8) K/ul RBC 4.14 L (4.70-6.10) M/uL Hgb 11.0 L (14.0-18.0) g/dl Hct 34.4 L (42.0-52.0) % RDW Std Deviation 48.9 H (36.4-46.3) fL RDW Coeff of Renny 15.9 H (11.5-14.5) % BUN/Creatinine Ratio 29.9 H (10-20) PG Care Time/CCT Total # of Minutes Spent Total Time Spent with Patient: Total time spent is greater than 50% in coordination of care (as documented) at patient's floor/unit and/or counseling patient: Coding Level of Care Code None Diagnoses Pneumonia J18.9 Frequent falls R29.6 UTI (urinary tract infection) N39.0
--- NOTE | 2024-04-01 17:13 | Billing Data ---
Date of Service April 01, 2024 Coding Level of Care Code 56324 INT INP/OBS CARE
[2024-04-02 06:11] LABS: Hematocrit (blood only) 36.2 % (42.0-52.0); Hemoglobin 11.4 g/dl (14.0-18.0); Mean Corpuscular Hemoglobin 26.2 pg (25.0-34.0); Mean Corpuscular Hgb Conc 31.5 g/dL (32.0-36.0); Mean Corpuscular Volume 83.2 fL (80.0-100.0); Mean Platelet Volume 10.2 fL (9.4-12.4); Platelet Count 256 K/uL (130-400); RDW Coefficient of Variation 15.4 % (11.5-14.5); Red Blood Count 4.35 M/uL (4.70-6.10); White Blood Count 10.73 K/ul (4.8-10.8)
[2024-04-02 06:25] LABS: BUN Creatinine Ratio 24.1 (10-20); Calcium 9.4 mg/dl (8.6-10.3); Potassium 3.8 mmol/L (3.5-5.1)
--- NOTE | 2024-04-02 13:06 | Electrocardiogram Report ---
Test Reason : Blood Pressure : */* mmHG Vent. Rate : 71 BPM Atrial Rate : 71 BPM P-R Int : 284 ms QRS Dur : 86 ms QT Int : 402 ms P-R-T Axes : 80 36 55 degrees QTcB Int : 436 ms Sinus rhythm with 1st degree A-V block with Premature atrial complexes Otherwise normal ECG When compared with ECG of 31-Mar-2024 00:09, Premature ventricular complexes are no longer Present Premature atrial complexes are now Present Vent. rate has decreased by [address] no longer elevated in Inferior leads QT has shortened Confirmed by Dany Arteaga ([id number]) on 04/02/2024 1:05:30 PM Referred By: REFERRED SELF Confirmed By: Dany Arteaga
--- NOTE | 2024-04-03 03:37 | Hospitalist Progress Note ---
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 also with h/o orthostasis Dr Jean-Paul Macedo has mentioned SSS in his office notes as well which could be leading to bradycardia and theoretically a fall no severe bradycardia seen on tele during this admission, however recent echo a few weeks ago was wnl with preserved EF & no significant valvular disease PT/OT while here rehab at [facility] post-discharge (3) UTI (urinary tract infection): Plan: 2nd pansensitive e.coli day #3 rocephin today can transition to PO augmentin tomorrow complete 7 days of Rx no symptoms to suggest prostatitis (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 cont lyrica, cymbalta, etc (5) Chronic obstructive pulmonary disease: Plan: no exacerbation at this time also with h/o bronchiectasis (6) Dysphagia: Plan: seen by speech therapy this admission - regular diet advised; no thickeners at this time (despite h/o aspiration event at [facility], by report) (7) Severe sleep apnea: Plan: cont CPAP (8) Occipital bone fracture: Plan: 03/18/24 sent to [facility] following such - no intervention needed no ICH fortunately check 25-OH vit D level am (9) Rib fracture: Plan: right 7th rib no pain or symptoms from such 2nd to fall on 03/18/24 (10) Orthostatic hypotension: Plan: history of such well-documented by Dr Macedo in his cardiology notes check orthostatics in the am tomorrow could be precipitating his falls at home (11) AAA (abdominal aortic aneurysm): Plan: 5cm in diameter - seen on CT at [facility] will need vascular surgery referral for ongoing surveillance made patient aware of this today (12) Pulmonary nodules: Plan: as seen on CT chest at [facility] recommend repeat CT chest in about 6 weeks as outpatient Plan Chronic pain / neuropathy - -Continue Duloxetine, Clonazepam QID, Lyrica, Tramadol Hyperlipidemia - -Continue Simvastatin Abnormal EKG - admission EKG a few days ago showed abnormal ST segments inferiorly; I repeated the EKG today - the inferior lead ST segments are normal; no ischemic changes auth submitted to return to [facility] today if auth is approved could d/c there tomorrow Admission and Anticipated Discharge Date Admission Date: March 31, 2024 Subjective patient w/o significant complaints feels well no major cough or pulmonary symptoms voiding w/o LUTS no areas of pain except back of head is mildly "sore" denies any pain where his broken rib is tele overnight - NSR Review of Systems Review of Systems: gen - no fevers or chills cv - no chest pain GI - no abd pain Physical Exam Physical Exam: gen - NAD, looks well head - occipital region on left - mild hematoma present neck - no JVD heart - RRR, s1 s2, some ectopy lungs - mild rales bases, no wheezes, no increased work of breathing abd - soft NT ND BS+ ext - no edema, pulses 2+ b/l Results & Data Results & Data Vital Signs (Past 12 Hours) Vital Signs Temp Pulse Pulse Resp BP BP Pulse Ox 04/02/24 16:08 36.6 C 71 18 151/84 H 96 04/02/24 10:33 36.4 C L 63 16 145/72 H 93 04/02/24 07:16 36.3 C L 66 18 154/94 H 96 Laboratory Results Laboratory Results - last 24 hr 04/02/24 05:46 WBC 10.73 RBC 4.35 L Hgb 11.4 L Hct 36.2 L MCV 83.2 MCH 26.2 MCHC 31.5 L RDW Std Deviation 47.0 H RDW Coeff of Renny 15.4 H Plt Count 256 MPV 10.2 Sodium 138 Potassium 3.8 Chloride 103 Carbon Dioxide 28 Anion Gap 7 BUN 20 Creatinine 0.83 Est Cr Clr Drug Dosing 62.0 eGFR 84.18 BUN/Creatinine Ratio 24.1 H Glucose 97 Calcium 9.4 PG Care Time/CCT Total # of Minutes Spent Total Time Spent with Patient: Total time spent is greater than 50% in coordination of care (as documented) at patient's floor/unit and/or counseling patient: Coding Level of Care Code 18381 SUB INP/OBS CARE 350MIN Diagnoses Pneumonia J18.9 Frequent falls R29.6 UTI (urinary tract infection) N39.0 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
--- NOTE | 2024-04-03 13:00 | Hospitalist Progress Note ---
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 also with h/o orthostasis Dr Jean-Paul Macedo has mentioned SSS in his office notes as well which could be leading to bradycardia and theoretically a fall no severe bradycardia seen on tele during this admission, however recent echo a few weeks ago was wnl with preserved EF & no significant valvular disease PT/OT while here rehab at [facility] post-discharge (3) UTI (urinary tract infection): Plan: 2nd pansensitive e.coli 3 total days of rocephin Transitionted to PO augmentin 04/03 complete 7 days of Rx no symptoms to suggest prostatitis (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 Continues to experience pain, not more severe than normal cont lyrica, cymbalta, etc (5) Chronic obstructive pulmonary disease: Plan: no exacerbation at this time also with h/o bronchiectasis Stable on RA (6) Dysphagia: Plan: seen by speech therapy this admission - regular diet advised; no thickeners at this time (despite h/o aspiration event at [place], by report) (7) Severe sleep apnea: Plan: cont CPAP (8) Occipital bone fracture: Plan: 03/18/24 sent to [place] following such - no intervention needed no ICH fortunately 25-OH vit D level 44 (9) Rib fracture: Plan: right 7th rib no pain or symptoms from such 2nd to fall on 03/18/24 (10) Orthostatic hypotension: Plan: history of such well-documented by Dr Macedo in his cardiology notes Pending orthostatic vitals could be precipitating his falls at home (11) AAA (abdominal aortic aneurysm): Plan: 5cm in diameter - seen on CT at [place] will need vascular surgery referral for ongoing surveillance made patient aware of this today (12) Pulmonary nodules: Plan: as seen on CT chest at [place] recommend repeat CT chest in about 6 weeks as outpatient Plan Chronic pain / neuropathy - -Continue Duloxetine, Clonazepam QID, Lyrica, Tramadol Hyperlipidemia - -Continue Simvastatin Abnormal EKG - admission EKG a few days ago showed abnormal ST segments inferiorly; Repeated 04/02 - the inferior lead ST segments are normal; no ischemic changes auth submitted to return to [facility] today Once auth is approved, pt is medically stable to be discharged. Admission and Anticipated Discharge Date Admission Date: March 31, 2024 Supervising Physician Co-Signing Physician Notes Attending Attestation & Progress Note: Pt seen/examined, chart reviewed, care plan d/w MARIA TERESA Sandoval. I agree w/ the jackson components of her documentation. Pt w/o any complaints. He feels well. He is eating robustly. Energy is good. No pulmonary symptoms. Voiding w/o LUTS. VSS, afebrile gen - NAD, looks great neck - no JVD heart - RRR, s1 s2, some ectopy lungs - mild rales bases, no wheezes, no increased work of breathing abd - soft NT ND BS+ ext - no edema, pulses 2+ b/l A/P: 1. b/l basilar pneumonia - clinically resolved; finish augmentin course 2. e.coli UTI - clinically resolved; finish augmentin course 3. AAA - found while at [facility] - 5cm; needs vascular surgery referral 4. pulmonary nodules - seen on recent imaging - repeat CT chest ~6-8 weeks Auth for [facility] pending Hopefully will have such by tomorrow and can d/c then Neno Rivera MD Subjective Pt seen sitting upright in bed eating lunch at time of visit. States that his only complaint is that he has heel pain, bilaterally. States that this is his normal level of pain, but it is just bothersome. Denies SOB, cough, chest pain, N/V/D/C, abdominal pain, calf tenderness. Telemetry: 1st degree block, PVCs + PACs overnight with rate 60-70s; rate this AM 58 Review of Systems Constitutional: no fatigue Respiratory: no cough and no dyspnea Cardiovascular: no chest pain, no palpitations and no calf pain Gastrointestinal: no abdominal pain, no nausea, no vomiting, no constipation and no diarrhea/loose stools Genitourinary: no dysuria or no hematuria Integumentary: no rash Neurologic: no headache(s) and no confusion Psychiatric: no confusion Physical Exam Constitutional: WD/WN, vitals as above Respiratory: normal respiratory effort, lungs clear to auscultation Cardiovascular: RRR, no murmur, no edema Gastrointestinal (Abdomen): normal bowel sounds, soft, nontender, no hepatosplenomegaly Results & Data Results & Data Vital Signs (Past 12 Hours) Vital Signs Temp Pulse Pulse Pulse Resp BP BP 04/03/24 11:57 36.5 C 63 18 130/71 04/03/24 10:02 04/03/24 07:51 36.5 C 61 18 149/75 H 04/03/24 06:05 60 04/03/24 02:51 69 18 113/80 04/03/24 01:35 70 19 Pulse Ox O2 Del Method O2 Flow Rate 04/03/24 11:57 94 Room Air 04/03/24 10:02 Room Air 04/03/24 07:51 95 Room Air 04/03/24 06:05 04/03/24 02:51 97 CPAP 2 04/03/24 01:35 98 2 PG Care Time/CCT Total # of Minutes Spent Total Time Spent with Patient: Total time spent is greater than 50% in coordination of care (as documented) at patient's floor/unit and/or counseling patient: Coding Level of Care Code None Diagnoses Pneumonia J18.9 Frequent falls R29.6 UTI (urinary tract infection) N39.0 Mahzhjp-Whopf-Eniyg disease G60.0 Chronic obstructive pulmonary disease J44.9 Dysphagia R13.10 Severe sleep apnea G47.30 Occipital bone fracture S02.119A Rib fracture S22.39XA Orthostatic hypotension I95.1 AAA (abdominal aortic aneurysm) I71.40 Pulmonary nodules R91.8
[2024-04-03] MEDS: AMOXICILLIN/CLAVULANATE 875 MG TAB PO SCH (17:36)
--- NOTE | 2024-04-04 08:18 | Billing Data ---
Date of Service April 03, 2024 Coding Level of Care Code 24811 SUB INP/OBS CARE
--- NOTE | 2024-04-04 14:09 | Hospitalist Progress Note ---
Date of Service April 04, 2024 Assessment & Plan (1) Pneumonia: Plan: b/l basilar pneumonia on CTA chest on day of admission; Patient with aspiration event noted while at [facility] recently - rocephin & doxy, course completed - Started on augmentin 04/03; to complete 7 total days of abx between both IV + PO; started treatment 03/31, last day of tx to be 04/07. - leukocytosis resolved (2) Frequent falls: Plan: had such at home prior to 03/18/24; fall risk may be heightened due to neuropathy from his Cejcvxm-Thazq-Brvzi disease - B12 528 - also with h/o orthostasis - Dr Jean-Paul Macedo has mentioned SSS in his office notes as well which could be leading to bradycardia and theoretically a fall - no severe bradycardia seen on tele during this admission - recent echo a few weeks ago was wnl with preserved EF & no significant valvular disease - PT/OT while here rehab at [facility] post-discharge, pending placement (3) UTI (urinary tract infection): Plan: 2nd pansensitive e.coli - 3 total days of rocephin - Transitionted to PO augmentin 04/03 - complete 7 total days of Rx no symptoms to suggest prostatitis (4) Cnlaicl-Zpdwl-Pskfh disease: Plan: with resulting neuropathy - Continues to experience pain, not more severe than normal - cont lyrica, cymbalta, etc - Start Lidocaine jelly prn (5) Chronic obstructive pulmonary disease: Plan: no exacerbation at this time - also with h/o bronchiectasis - Stable on RA (6) Dysphagia: Plan: seen by speech therapy this admission - regular diet advised; no thickeners at this time (despite h/o aspiration event at [place], by report) (7) Severe sleep apnea: Plan: cont CPAP (8) Occipital bone fracture: Plan: 03/18/24 - sent to [place] following such - no intervention needed - no ICH fortunately - 25-OH vit D level 44 (9) Rib fracture: Plan: right 7th rib - no pain or symptoms from such - 2nd to fall on 03/18/24 (10) Orthostatic hypotension: Plan: history of such - well-documented by Dr Macedo in his cardiology notes - Orthostatic vitals as follows- Lyin/83 hr 67, Sittin/78 HR 60, Standin/84 HR 94 - could be precipitating his falls at home - Not on BP medications, however is on medications that may cause orthostatic hypotension; not clear if these are what are causing symptoms - Many factors in play - Not symptomatic currently - Discussed proper ways to change positions from lying/sitting to standing to avoid falls in future (11) AAA (abdominal aortic aneurysm): Plan: 5cm in diameter - seen on CT at [place] - will need vascular surgery referral for ongoing surveillance - Pt now aware of this (12) Pulmonary nodules: Plan: as seen on CT chest at [place] - recommend repeat CT chest in about 6 weeks as outpatient Plan Chronic pain / neuropathy - -Continue Duloxetine, Clonazepam QID, Lyrica, Tramadol Hyperlipidemia - -Continue Simvastatin Abnormal EKG - admission EKG a few days ago showed abnormal ST segments inferiorly; Repeated 04/02 - the inferior lead ST segments are normal; no ischemic changes auth submitted to return to [facility]; still pending whether or not pt will be accepted Once auth is approved, pt is medically stable to be discharged. Admission and Anticipated Discharge Date Admission Date: March 31, 2024 Supervising Physician Co-Signing Physician Notes Attending Attestation & Progress Note: Pt seen/examined, chart reviewed, care plan d/w MARIA TERESA Snadoval. I agree w/ the jackson components of her documentation. Jaime performed [id number] with pt's insurance company today to obtain auth for SNF rehab. Pt denied auth for SNF. Pt's family made aware of such; family to start appeal process. Only complaint is his neuropathy in b/l feet. VSS, afebrile gen - NAD neck - no JVD heart - RRR, s1 s2, some ectopy, no murmur lungs - mild decreased BS bases with rales, no wheezes, no increased work of breathing abd - soft NT ND BS+ ext - no edema, pulses 2+ b/l feet A/P: 1. b/l basilar pneumonia - clinically resolved; finish augmentin course 2. e.coli UTI - clinically resolved; finish augmentin course 3. AAA - found while at [facility] - 5cm; needs vascular surgery referral 4. pulmonary nodules - seen on recent imaging - repeat CT chest ~6-8 weeks 5. Laulnij-Hyhfa-Jqzsc disease with neuropathy - try lidocaine jelly to b/l feet; cont cymbalta, cont lyrica await appeal for SNF placement Neno Rivera MD Subjective Pt seen sitting in chair at bedside eating his meal at the time of visit. States that he is feeling well with the exception of having ongoing foot pain that is his baseline. States that there is no numbness or tingling, no loss of sensation, and that it is tolerable. Denies SOB, chest pain, cough, abdominal pain, N/V/D/C. Telemetry: NSR at 66 bpm, 1st degree block, occasional PACs Review of Systems Constitutional: no fatigue Respiratory: no cough and no dyspnea Cardiovascular: no chest pain, no palpitations and no calf pain Gastrointestinal: no abdominal pain, no nausea, no vomiting, no constipation and no diarrhea/loose stools Genitourinary: no dysuria or no hematuria Musculoskeletal: Bilateral foot pain at sole of foot; no numbness or tingling Integumentary: no rash Neurologic: no headache(s) and no confusion Psychiatric: no confusion Physical Exam Constitutional: WD/WN, vitals as above no acute distress Eyes: PERRL, conjunctivae normal, anicteric sclerae Respiratory: normal respiratory effort, lungs clear to auscultation normal respiratory effort Cardiovascular: RRR, no murmur, no edema Gastrointestinal (Abdomen): normal bowel sounds, soft, nontender, no hepatosplenomegaly Musculoskeletal: normal sensation and perfusion to feet Bilateral hands with cyanotic color fingertips; normal per pt. O2 sat WNL. Neurologic: Speech / Cognition: normal speech and normal cognition Results & Data Results & Data Vital Signs (Past 12 Hours) Vital Signs Temp Pulse Pulse Resp BP Pulse Ox O2 Del Method 04/04/24 12:47 36.5 C 68 18 114/73 96 Room Air 04/04/24 07:28 36.5 C 70 16 130/75 93 Room Air 04/04/24 07:00 75 04/04/24 02:56 36.5 C 69 18 161/81 H 98 Room Air PG Care Time/CCT Total # of Minutes Spent Total Time Spent with Patient: Total time spent is greater than 50% in coordination of care (as documented) at patient's floor/unit and/or counseling patient: Coding Level of Care Code None Diagnoses Pneumonia J18.9 Frequent falls R29.6 UTI (urinary tract infection) N39.0 Sqfwqwz-Auger-Crhmu disease G60.0 Chronic obstructive pulmonary disease J44.9 Dysphagia R13.10 Severe sleep apnea G47.30 Occipital bone fracture S02.119A Rib fracture S22.39XA Orthostatic hypotension I95.1 AAA (abdominal aortic aneurysm) I71.40 Pulmonary nodules R91.8
[2024-04-04] MEDS: ACETAMINOPHEN 325 MG TAB PO PRN (21:17)
--- NOTE | 2024-04-05 05:38 | Billing Data ---
Date of Service April 04, 2024 Coding Level of Care Code 89432 SUB INP/OBS CARE
--- NOTE | 2024-04-05 12:34 | Hospitalist Progress Note ---
Date of Service April 05, 2024 Assessment & Plan (1) Pneumonia: Plan: b/l basilar pneumonia on CTA chest on day of admission; Patient with aspiration event noted while at [facility] recently - rocephin & doxy, course completed - Started on augmentin 04/03; to complete 7 total days of abx between both IV + PO; started treatment 03/31, last day of tx to be 04/07. - leukocytosis resolved (2) Frequent falls: Plan: had such at home prior to 03/18/24; fall risk may be heightened due to neuropathy from his Gcmxsud-Icauo-Opicj disease - B12 528 - also with h/o orthostasis - Dr Jean-Paul Macedo has mentioned SSS in his office notes as well which could be leading to bradycardia and theoretically a fall - no severe bradycardia seen on tele during this admission - recent echo a few weeks ago was wnl with preserved EF & no significant valvular disease - PT/OT while here rehab at [facility] post-discharge, pending placement (3) UTI (urinary tract infection): Plan: 2nd pansensitive e.coli - 3 total days of rocephin - Transitionted to PO augmentin 04/03 - complete 7 total days of Rx no symptoms to suggest prostatitis (4) Brletlb-Cybgc-Ajljw disease: Plan: with resulting neuropathy - Continues to experience pain, not more severe than normal - cont lyrica, cymbalta, etc - Lidocaine jelly to bilateral feet prn (5) Chronic obstructive pulmonary disease: Plan: no exacerbation at this time - also with h/o bronchiectasis - Stable on RA (6) Dysphagia: Plan: seen by speech therapy this admission - regular diet advised; no thickeners at this time (despite h/o aspiration event at [place], by report) (7) Severe sleep apnea: Plan: cont CPAP (8) Occipital bone fracture: Plan: 03/18/24 - sent to [place] following such - no intervention needed - no ICH fortunately - 25-OH vit D level 44 (9) Rib fracture: Plan: right 7th rib - no pain or symptoms from such - 2nd to fall on 03/18/24 (10) Orthostatic hypotension: Plan: history of such - well-documented by Dr Macedo in his cardiology notes - Orthostatic vitals as follows- Lyin/83 hr 67, Sittin/78 HR 60, Standin/84 HR 94 - could be precipitating his falls at home - Not on BP medications, however is on medications that may cause orthostatic hy potension; not clear if these are what are causing symptoms - Many factors in play - Not symptomatic currently - Discussed proper ways to change positions from lying/sitting to standing to avoid falls in future (11) AAA (abdominal aortic aneurysm): Plan: 5cm in diameter - seen on CT at [place] - will need vascular surgery referral for ongoing surveillance - Pt now aware of this (12) Pulmonary nodules: Plan: as seen on CT chest at [place] - recommend repeat CT chest in about 6 weeks as outpatient Plan Chronic pain / neuropathy - -Continue Duloxetine, Clonazepam QID, Lyrica, Tramadol Hyperlipidemia - -Continue Simvastatin Abnormal EKG - admission EKG a few days ago showed abnormal ST segments inferiorly; Repeated 04/02 - the inferior lead ST segments are normal; no ischemic changes Dispo: auth submitted to return to [facility]; still pending whether or not pt will be accepted; Once auth is approved, pt is medically stable to be discharged. VTE proph: SCDs Code: Full Admission and Anticipated Discharge Date Admission Date: March 31, 2024 Supervising Physician Co-Signing Physician Notes Attending Attestation - Chart reviewed, care plan d/w MARIA TERESA Sandoval. I agree w/ the jackson components of her documentation. [id number] denied SNF rehab. Thus, family performing appeal; awaiting appeal decision from insurance. A/P: 1. b/l basilar pneumonia - clinically resolved; finish augmentin course 2. e.coli UTI - clinically resolved; finish augmentin course 3. AAA - found while at [facility] - 5cm; needs vascular surgery referral 4. pulmonary nodules - seen on recent imaging - repeat CT chest ~6-8 weeks 5. Upydgfc-Ajrtn-Pjype disease with neuropathy - try lidocaine jelly to b/l feet; cont cymbalta, cont lyrica Neno Rivera MD Subjective Pt is sitting at bedside in chair at the time of visit. States that he has no complaints. Reports that he has concerns of placement following discharge from the hospital. Telemetry: Sinus arrhythmia, PACs and PVCs periodically, 1st degree block, 50-70 bpm Review of Systems Constitutional: no fatigue Respiratory: no cough and no dyspnea Cardiovascular: no chest pain, no palpitations and no calf pain Gastrointestinal: no abdominal pain, no nausea, no vomiting, no constipation and no diarrhea/loose stools Genitourinary: no dysuria or no hematuria Musculoskeletal: Bilateral foot pain at sole of foot; no numbness or tingling Integumentary: no rash Neurologic: no headache(s) and no confusion Psychiatric: no confusion Physical Exam Constitutional: WD/WN, vitals as above no acute distress Eyes: PERRL, conjunctivae normal, anicteric sclerae Respiratory: normal respiratory effort, lungs clear to auscultation normal respiratory effort Cardiovascular: RRR, no murmur, no edema Gastrointestinal (Abdomen): normal bowel sounds, soft, nontender, no hepatosplenomegaly Neurologic: Speech / Cognition: normal speech and normal cognition Results & Data Results & Data Vital Signs (Past 12 Hours) Vital Signs Temp Pulse Pulse Resp BP Pulse Ox O2 Del Method 04/05/24 11:53 36.2 C L 71 18 121/71 97 Room Air 04/05/24 08:06 36.3 C L 56 L 18 138/74 96 CPAP 04/05/24 07:50 Room Air 04/05/24 07:00 52 L 04/05/24 03:01 63 13 96 04/05/24 02:49 63 18 162/77 H 96 CPAP 04/05/24 00:35 68 O2 Flow Rate 04/05/24 11:53 04/05/24 08:06 04/05/24 07:50 04/05/24 07:00 04/05/24 03:01 2 04/05/24 02:49 2 04/05/24 00:35 PG Care Time/CCT Total # of Minutes Spent Total Time Spent with Patient: Total time spent is greater than 50% in coordination of care (as documented) at patient's floor/unit and/or counseling patient: Coding [place] [address] SUB INP/OBS CARE 2/35MIN Patient Type Established Medical Decision Making Moderate Complexity Diagnoses Pneumonia J18.9 Frequent falls R29.6 UTI (urinary tract infection) N39.0 Pfauelu-Ncwnc-Ujedg disease G60.0 Chronic obstructive pulmonary disease J44.9 Dysphagia R13.10 Severe sleep apnea G47.30 Occipital bone fracture S02.119A Rib fracture S22.39XA Orthostatic hypotension I95.1 AAA (abdominal aortic aneurysm) I71.40 Pulmonary nodules R91.8 Time Spent (min) 25
[2024-04-05] MEDS: LIDOCAINE 2% JELLY 5 ML TUBE EXT PRN (12:46)
--- NOTE | 2024-04-06 11:41 | Electrocardiogram Report ---
Test Reason : Blood Pressure : */* mmHG Vent. Rate : 80 BPM Atrial Rate : 80 BPM P-R Int : 286 ms QRS Dur : 82 ms QT Int : 422 ms P-R-T Axes : 78 49 75 degrees QTcB Int : 486 ms Sinus rhythm with sinus arrhythmia with 1st degree A-V block ST elevation, consider early repolarization, pericarditis, or injury Prolonged QT Abnormal ECG When compared with ECG of 06-Apr-2024 09:56, (unconfirmed) No significant change was found Confirmed by Dany Arteaga ([id number]) on 04/06/2024 11:40:59 AM Referred By: REFERRED SELF Confirmed By: Dany Arteaga
--- NOTE | 2024-04-06 11:41 | Electrocardiogram Report ---
Test Reason : Blood Pressure : */* mmHG Vent. Rate : 90 BPM Atrial Rate : 90 BPM P-R Int : 274 ms QRS Dur : 84 ms QT Int : 394 ms P-R-T Axes : * 53 74 degrees QTcB Int : 481 ms Sinus rhythm with 1st degree A-V block ST elevation, consider early repolarization, pericarditis, or injury Prolonged QT Abnormal ECG When compared with ECG of 02-Apr-2024 11:58, Premature atrial complexes are no longer Present ST elevation now present in Inferior leads Confirmed by Dany Arteaga ([id number]) on 04/06/2024 11:40:36 AM Referred By: REFERRED SELF Confirmed By: Dany Arteaga
--- NOTE | 2024-04-06 12:19 | XCELERA ---
[id number] \\[id number]
[2024-04-06] MEDS: HYDROCODONE/ACETAMOPHEN 5/325MG TAB PO PRN (16:47)
--- NOTE | 2024-04-06 20:13 | Hospitalist Progress Note ---
Date of Service April 06, 2024 Assessment & Plan (1) Abnormal EKG: Plan: at time of admission patient's EKG showed mild ST segment elevation in the inferior leads. the EKG was repeated and the inferior ST segments had normalized. this am the telemetry clerks noted ST segment elevation once again. 12-lead EKG was obtained - inferior leads showed significantly worse ST segment elevation. urgent ECHO obtained - NORMAL LV function, NORMAL LV wall motion. patient today had NO chest pain, dyspnea, nausea, emesis, back pain or any ischemic symptoms. I spoke with [facility] [place] [facility] - abnormal inferior ST segments are likely due to his LVH. repeat EKG am. will obtain a troponin in am as well. (2) Pneumonia: Plan: b/l basilar pneumonia on CTA chest on day of admission; Patient with aspiration event noted while at [facility] recently following his trauma s/p rocephin & doxy initially, then changed to augmentin 04/03; to complete 7 total days of abx between both IV + PO; started treatment 03/31, last day of tx to be 04/07. 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 despite lyrica + cymbalta both meds are at high doses he tried Lidocaine jelly to bilateral feet prn but not helpful will d/c tramadol; change to PO norco prn consider a low-dose TCA but defer for now (6) Chronic obstructive pulmonary disease: Plan: no exacerbation at this time (7) Dysphagia: Plan: seen by speech therapy this admission - regular diet advised; no thickeners at this time (despite h/o aspiration event at [place], by report) (8) Severe sleep apnea: Plan: cont CPAP (9) Occipital bone fracture: Plan: 03/18/24 2nd to fall sent to [place] following such - no intervention needed 25-OH vit D level 44 (10) Rib fracture: Plan: right 7th rib no pain or symptoms from such 2nd to fall on 03/18/24 (11) Orthostatic hypotension: Plan: history of such - well-documented by Dr Jean-Paul Macedo in his outpatient cardiology notes - Orthostatic vitals here - Lyin/83 hr 67, Sittin/78 HR 60, Standin/84 HR 94 - could be precipitating his falls at home - Not on BP medications, however is on medications that may cause orthostatic hypotension; not clear if these are what are causing symptoms - Not symptomatic currently (12) AAA (abdominal aortic aneurysm): Plan: 5cm in diameter - seen on CT abd/pelvis at [place] - will need vascular surgery referral for ongoing surveillance - Pt now aware of this (13) Pulmonary nodules: Plan: as seen on CT chest at [place] - recommend repeat CT chest in about 6 weeks as outpatient Plan Chronic pain / neuropathy - -Continue Duloxetine, Clonazepam QID, Lyrica, Tramadol Hyperlipidemia - -Continue Simvastatin Dispo: peer to peer denied for SNF auth for rehab at [facility] family has completed an appeal hopefully will hear something early this week Admission and Anticipated Discharge Date Admission Date: March 31, 2024 Subjective patient without any complaints today except his feet severe neuropathy - especially the heel & bottom of feet no dyspnea, chest pain, nausea, emesis or any other cardiopulmonary symptom overnight - telemetry wnl however, this am, tele techs noted that he had ST segment elevation that was new EKG obtained - indeed there was ST segment elevation Urgent echo obtained - NORMAL inferior wall motion; normal wall motion of entire LV he does have LVH Review of Systems Review of Systems: pulm - minimal cough, no dyspnea, no SAEED GI - no abd pain CV - no cp, no orthopnea, no PND Physical Exam Physical Exam: gen - NAD, looks well, comfortable, pleasant neck - no JVD heart - irregular (extra beats), s1 s2, no murmur lungs - minimal rales bases, no wheezes, no increased work of breathing abd - soft NT ND BS+ ext - no edema, pulses 2+ b/l; cap refill on toes is prolonged - about 4 sec Results & Data Results & Data Vital Signs (Past 12 Hours) Vital Signs Temp Pulse Pulse Resp BP Pulse Ox O2 Del Method 04/06/24 19:34 36.4 C L 63 16 128/75 94 Room Air 04/06/24 15:40 36.6 C 69 16 133/77 93 Room Air 04/06/24 14:31 65 04/06/24 11:39 36.5 C 72 16 121/77 97 Room Air 04/06/24 08:13 Room Air Diagnostic Findings EKG - NSR, inferior ST segment elevation, 1st degree AV block Echo - normal EF, normal LV wall motion (including inferior wall) PG Care Time/CCT Total # of Minutes Spent Total Time Spent with Patient: Total time spent is greater than 50% in coordination of care (as documented) at patient's floor/unit and/or counseling patient: Coding Level of Care Code 68960 SUB INP/OBS CARE 2/35MIN Diagnoses Abnormal EKG R94.31 Pneumonia J18.9 Frequent falls R29.6 UTI (urinary tract infection) N39.0 Wlufkcm-Ebszz-Ihrro disease G60.0 Chronic obstructive pulmonary disease J44.9 Dysphagia R13.10 Severe sleep apnea G47.30 Occipital bone fracture S02.119A Rib fracture S22.39XA Orthostatic hypotension I95.1 AAA (abdominal aortic aneurysm) I71.40 Pulmonary nodules R91.8
[2024-04-07 06:42] LABS: Hematocrit (blood only) 38.5 % (42.0-52.0); Hemoglobin 11.7 g/dl (14.0-18.0); Mean Corpuscular Hemoglobin 25.7 pg (25.0-34.0); Mean Corpuscular Hgb Conc 30.4 g/dL (32.0-36.0); Mean Corpuscular Volume 84.6 fL (80.0-100.0); Mean Platelet Volume 10.2 fL (9.4-12.4); Platelet Count 260 K/uL (130-400); RDW Coefficient of Variation 15.3 % (11.5-14.5); RDW Standard Deviation 46.8 fL (36.4-46.3); Red Blood Count 4.55 M/uL (4.70-6.10); White Blood Count 9.15 K/ul (4.8-10.8)
[2024-04-07 06:46] LABS: BUN Creatinine Ratio 28.4 (10-20); Calcium 9.3 mg/dl (8.6-10.3); Creatinine Clr Calc Pharmacy 62.7 ml/min; Potassium 4.4 mmol/L (3.5-5.1)
[2024-04-07 06:54] LABS: Troponin I High Sensitivity 13.8 pg/ml (0-20)
--- NOTE | 2024-04-07 18:14 | Hospitalist Progress Note ---
Date of Service April 07, 2024 Assessment & Plan (1) Abnormal EKG: Plan: at time of admission patient's EKG showed mild ST segment elevation in the inferior leads. the EKG was repeated and the inferior ST segments had normalized. 04/06 - the telemetry clerks noted ST segment elevation once again. 12-lead EKG was obtained - inferior leads showed significantly worse ST segment elevation. urgent ECHO obtained - NORMAL LV function, NORMAL LV wall motion. patient has had NO chest pain, dyspnea, nausea, emesis, back pain or any ischemic symptoms. I spoke with [facility] [place] - abnormal inferior ST segments are likely due to his LVH. the inferior segments may chance in morphology depending on volume status, etc in the setting of LVH. repeat EKG today with no ST elevation inferior leads; if anything they are now inverted today. troponin is negative. no evidence of ischemia. (2) Pneumonia: Plan: b/l basilar pneumonia on CTA chest on day of admission; Patient with aspiration event noted while at [facility] recently following his trauma s/p rocephin & doxy initially, then changed to augmentin 04/03; to complete 7 total days of abx between both IV + PO; started treatment 03/31, last day of tx is today then stop all abx. pneumonia clinically resolved (3) Frequent falls: Plan: had such at home prior to 03/18/24; fall risk may be heightened due to neuropathy from his Ejmmlme-Pyczo-Qipbu disease cont PT/OT needs rehab -- family appeal for rehab at [facility] is pending (4) UTI (urinary tract infection): Plan: 2nd pansensitive e.coli s/p 3 days of rocephin Transitionted to PO augmentin 04/03 complete 7 total days of Rx no symptoms to suggest prostatitis no LUTS (5) Qlsiixq-Cikaj-Pvojj disease: Plan: with resulting neuropathy neuropathic pain is severe despite lyrica + cymbalta both meds are at high doses he tried Lidocaine jelly to bilateral feet prn but not helpful norco worked better than tramadol thus continue such prn tramadol has been d/c consider a low-dose TCA but defer for now (6) Chronic obstructive pulmonary disease: Plan: no exacerbation at this time (7) Dysphagia: Plan: seen by speech therapy this admission - regular diet advised; no thickeners at this time (despite h/o aspiration event at [place], by report) (8) Severe sleep apnea: Plan: cont CPAP (9) Occipital bone fracture: Plan: 03/18/24 2nd to fall sent to [place] following such - no intervention needed 25-OH vit D level 44 small hematoma overlying the fracture site - warm compresses prn (10) Rib fracture: Plan: right 7th rib no pain or symptoms from such 2nd to fall on 03/18/24 (11) Orthostatic hypotension: Plan: history of such - well-documented by Dr Jean-Paul Macedo in his outpatient cardiology notes - Orthostatic vitals here - Lyin/83 hr 67, Sittin/78 HR 60, Standin/84 HR 94 - could be precipitating his falls at home - Not on BP medications, however is on medications that may cause orthostatic hypotension; not clear if these are what are causing symptoms - Not symptomatic currently (12) AAA (abdominal aortic aneurysm): Plan: 5cm in diameter - seen on CT abd/pelvis at [place] - will need vascular surgery referral for ongoing surveillance - Pt now aware of this (13) Pulmonary nodules: Plan: as seen on CT chest at [place] - recommend repeat CT chest in about 6 weeks as outpatient Plan Chronic pain / neuropathy - -Continue Duloxetine, Clonazepam QID, Lyrica, Tramadol Hyperlipidemia - -Continue Simvastatin Duskiness in toes/fingers - would probably benefit from low-dose CCB like nifedipine for this but orthostasis would preclude such Further, he reports no pain in the toes or fingers Follow for now Dispo: peer to peer denied for SNF auth for rehab at [facility] family has completed an appeal hopefully will hear something early this week left message for pt's family on their voicemail this evening, 04/07 Admission and Anticipated Discharge Date Admission Date: March 31, 2024 Supervising Physician Co-Signing Physician Notes Attending Attestation - Chart reviewed, care plan d/w MARIA TERESA Sandoval. I agree w/ the jackson components of her documentation. [id number] denied SNF rehab. Thus, family performing appeal; awaiting appeal decision from insurance. A/P: 1. b/l basilar pneumonia - clinically resolved; finish augmentin course 2. e.coli UTI - clinically resolved; finish augmentin course 3. AAA - found while at [facility] - 5cm; needs vascular surgery referral 4. pulmonary nodules - seen on recent imaging - repeat CT chest ~6-8 weeks 5. Infjvim-Pislz-Kzpbh disease with neuropathy - try lidocaine jelly to b/l feet; cont cymbalta, cont lyrica Neno Rivera MD Subjective tele overnight - PACS/NSR feeling good no complaints except for b/l foot pain from neuropathy eating well drinking well Review of Systems Review of Systems: CV - still no pain, orthopnea, PND, or edema vascular - denies pain in toes or fingers pulm - no dyspnea GI - no N/V Physical Exam Physical Exam: gen - NAD, looks well, comfortable, pleasant; laying in bed watching TV neck - no JVD heart - irregular (extra beats), s1 s2, no murmur lungs - minimal rales bases, no wheezes, no increased work of breathing abd - soft NT ND BS+ ext - no edema, pulses 2+ b/l; cap refill on toes is prolonged - about 4 sec; fingers with duskiness as well Results & Data Results & Data Vital Signs (Past 12 Hours) Vital Signs Temp Pulse Pulse Resp BP Pulse Ox O2 Del Method 04/07/24 15:03 36.6 C 65 20 125/77 93 Room Air 04/07/24 13:50 72 04/07/24 11:24 36.5 C 84 20 114/75 96 Room Air 04/07/24 07:55 36.3 C L 62 20 154/80 H 98 CPAP 04/07/24 07:37 Room Air 04/07/24 07:19 62 Laboratory Results Laboratory Results - last 24 hr 04/07/24 05:41 WBC 9.15 RBC 4.55 L Hgb 11.7 L Hct 38.5 L MCV 84.6 MCH 25.7 MCHC 30.4 L RDW Std Deviation 46.8 H RDW Coeff of Renny 15.3 H Plt Count 260 MPV 10.2 Sodium 140 Potassium 4.4 Chloride 102 Carbon Dioxide 32 Anion Gap 6 BUN 23 Creatinine 0.81 Est Cr Clr Drug Dosing 62.7 eGFR 84.80 BUN/Creatinine Ratio 28.4 H Glucose 80 Calcium 9.3 Troponin I High Sens 13.8 PG Care Time/CCT Total # of Minutes Spent Total Time Spent with Patient: Total time spent is greater than 50% in coordination of care (as documented) at patient's floor/unit and/or counseling patient: Coding Level of Care Code 24244 SUB INP/OBS CARE 235MIN Diagnoses Abnormal EKG R94.31 Pneumonia J18.9 Frequent falls R29.6 UTI (urinary tract infection) N39.0 Bsxpdyi-Lmiyd-Nrjrg disease G60.0 Chronic obstructive pulmonary disease J44.9 Dysphagia R13.10 Severe sleep apnea G47.30 Occipital bone fracture S02.119A Rib fracture S22.39XA Orthostatic hypotension I95.1 AAA (abdominal aortic aneurysm) I71.40 Pulmonary nodules R91.8
--- NOTE | 2024-04-08 08:26 | Electrocardiogram Report ---
Test Reason : Blood Pressure : */* mmHG Vent. Rate : 75 BPM Atrial Rate : 75 BPM P-R Int : 288 ms QRS Dur : 80 ms QT Int : 400 ms P-R-T Axes : * 52 -9 degrees QTcB Int : 446 ms Sinus rhythm with 1st degree A-V block with Premature atrial complexes in a pattern of bigeminy T-wave inversion in Inferior leads , consider ischemia Abnormal ECG When compared with ECG of 06-Apr-2024 10:00, Premature atrial complexes are now Present ST no longer elevated in Inferior leads T wave inversion now evident in Inferior leads Confirmed by Brenden Swartz ([id number]) on 04/08/2024 8:26:08 AM Referred By: REFERRED SELF Confirmed By: Brenden Swartz
--- NOTE | 2024-04-08 11:56 | XRay Report ---
XR chest 2V PA/lateral CLINICAL HISTORY: worsening LLL pneumonia? TECHNIQUE: 2 views of the chest were obtained. Comparison: Comparison is made to chest radiograph 03/31/2024 FINDINGS: No lines and tubes are seen. The cardiomediastinal silhouette is normal. Faint bibasilar airspace opa cities are seen. No evidence of pleural effusion or pneumothorax. IMPRESSION: Faint bibasilar airspace opacities are slightly more conspicuous than the prior exam, possibly repres enting worsening pneumonia versus aspiration/atelectasis. ACT 112: Negative or not required by law. Electronically signed by: Alejandro Ragland M.D. 04/08/2024 11:55 AM
[2024-04-08] MEDS: bisacodyL 10 MG SUPP PR STA (12:12)
[2024-04-08] MEDS: levoFLOXacin 750 MG TAB PO SCH (13:18)
[2024-04-08] MEDS: HYDROCODONE/ACETAMOPHEN 5/325MG TAB PO PRN (17:26)
--- NOTE | 2024-04-08 19:49 | Hospitalist Progress Note ---
Date of Service April 08, 2024 Assessment & Plan (1) Pneumonia: Plan: b/l basilar pneumonia on CTA chest on day of admission; Patient with aspiration event noted while at [facility] recently following his fall/head trauma s/p rocephin & doxy initially, then changed to augmentin 04/03; completed 7 total days of abx between both IV + PO pneumonia had clinically resolved today seemed to have slightly altered MS (although was oriented to person, place, month, year, and day of the week) did not eat well this am and is very tired with the purulent sputum he had today obtained CXR -- infiltrates bases slightly worse rales L base on lung exam worse this am recurrent pneumonia?? will start Levaquin 750mg daily first dose now (this will cover gram negatives & pseudomonas) repeat labs am (2) Abnormal EKG: Plan: at time of admission patient's EKG showed mild ST segment elevation in the inferior leads. the EKG was repeated couple days later and the inferior ST segments had normalized. 04/06/24 - the telemetry clerks noted ST segment elevation once again. 12-lead EKG was obtained - inferior leads showed significantly worse ST segment elevation. urgent ECHO obtained - NORMAL LV function, NORMAL LV wall motion. patient has had NO chest pain, dyspnea, nausea, emesis, back pain or any ischemic symptoms. [place] spoke with [facility] [place] - abnormal inferior ST segments are likely due to his LVH. the inferior segments may change in morphology depending on volume status, etc in the setting of LVH. repeat EKG yesterday with no ST elevation inferior leads; if anything they are now inverted. troponin is negative. no evidence of ischemia. (3) Frequent falls: Plan: had such at home prior to 03/18/24; fall risk may be heightened due to neuropathy from his Stxsqbk-Tkclm-Dmctz disease cont PT/OT needs rehab -- family appeal was successful -- approved for rehab at [facility] (4) UTI (urinary tract infection): Plan: 2nd pansensitive e.coli s/p 3 days of rocephin Transitionted to PO augmentin 04/03 complete 7 total days of Rx no symptoms to suggest prostatitis no LUTS (5) Sxdjaoz-Vngtt-Qphfs disease: Plan: with resulting neuropathy follows with Dr David Farfan - [facility] [facility] neuropathic pain is severe despite high-dose lyrica + cymbalta he tried Lidocaine jelly to bilateral feet prn but not helpful norco worked better than tramadol thus continue such prn tramadol has been d/c (he was taking this chronically at home for several years) consider a low-dose TCA but defer for now doubt that the norco caused his altered MS this am but as precautionary measure will cut the dose in 1/2 today (6) Chronic obstructive pulmonary disease: Plan: no exacerbation at this time see #1 above however (7) Dysphagia: Plan: seen by speech therapy this admission - regular diet advised; no thickeners at this time (despite h/o aspiration event at [place], by report) (8) Severe sleep apnea: Plan: cont CPAP (9) Occipital bone fracture: Plan: 03/18/24 2nd to fall sent to [place] following such - no intervention needed 25-OH vit D level 44 small hematoma overlying the fracture site - warm compresses prn (10) Rib fracture: Plan: right 7th rib no pain or symptoms from such 2nd to fall on 03/18/24 (11) Orthostatic hypotension: Plan: history of such - well-documented by Dr Jean-Paul Macedo in his outpatient cardiology notes - Orthostatic vitals here - Lyin/83 hr 67, Sittin/78 HR 60, Standin/84 HR 94 when these orthostatics were obtained he did NOT have dizziness or lighthe adedness - fgel-fpz-kvow orthostasis could be precipitating his falls at home - Not on BP medications follow for now could always consider midodrine or florinef he develops orthostatic symptoms (12) AAA (abdominal aortic aneurysm): Plan: 5cm in diameter - seen on CT abd/pelvis at [place] - will need vascular surgery referral for ongoing surveillance - Pt aware of this dx (13) Pulmonary nodules: Plan: as seen on CT chest at [place] - recommend repeat CT chest in about 6 weeks as outpatient Plan Chronic pain / neuropathy - -Continue Duloxetine, Clonazepam QID, Lyrica -Changed tramadol to norco as tramadol was not helping neuropathic pain; norco did indeed work better for it Hyperlipidemia - -Continue Simvastatin Duskiness in toes/fingers - would probably benefit from low-dose CCB like nifedipine for this but orthostasis would preclude such Further, he reports no pain in the toes or fingers Follow for now Dispo: peer to peer denied for SNF auth for rehab at [facility] family has completed an appeal and this WAS SUCCESSFUL was to to go [facility] today but I canceled his discharge due to the events of the morning (sleepiness, poor appetite, slowed speech, purulent sputum, cxr results, etc) I updated pt's daughter by phone this evening Admission and Anticipated Discharge Date Admission Date: March 31, 2024 Subjective when I walked into the room this am Mr Jeffrey was awake/alert but his speech was slower than usual and it was slightly slurred no aphasia or true dysarthria - just slightly off I asked if he was ok and he said yes he had just worked with PT and walked 100 feet he denied feeling dyspneic denied any chest pain on his bedside tray there was a sputum collection cup with very purulent appearing sputum (copious) he said he coughed it up this am he mentioned he "coughs every morning" but he does think the sputum looks worse than usual only ate 25% of breakfast feels very tired Review of Systems Review of Systems: CV - no chest pain pulm - cough, sputum production, no wheezing or dyspnea GI - no abd pain or N/V; he asks for something for constipation Physical Exam Physical Exam: gen - NAD, but talking more slowly than usual; looks tired today; speech slightly slurry but no true aphasia or dysarthria neck - no JVD heart - irregular (extra beats), s1 s2, no murmur lungs - worsening rales L base; no wheezes, no increased work of breathing abd - soft NT ND BS+ ext - no edema, pulses 2+ b/l; cap refill on toes is prolonged - about 4 sec; fingers with duskiness as well (baseline) Results & Data Results & Data Vital Signs (Past 12 Hours) Vital Signs Temp Pulse Pulse Pulse Resp BP BP 04/08/24 19:27 36.6 C 77 20 117/70 04/08/24 15:43 36.4 C L 85 18 164/89 H 04/08/24 14:59 70 04/08/24 11:49 36.5 C 63 18 154/79 H 04/08/24 08:30 04/08/24 08:02 36.6 C 70 16 143/75 H 04/08/24 07:56 74 Pulse Ox O2 Del Method 04/08/24 19:27 94 Room Air 04/08/24 15:43 96 Room Air 04/08/24 14:59 04/08/24 11:49 96 Room Air 04/08/24 08:30 Room Air 04/08/24 08:02 93 Room Air 04/08/24 07:56 Laboratory Results Laboratory Results - last 48 hr 04/07/24 05:41 WBC 9.15 RBC 4.55 L Hgb 11.7 L Hct 38.5 L MCV 84.6 MCH 25.7 MCHC 30.4 L RDW Std Deviation 46.8 H RDW Coeff of Renny 15.3 H Plt Count 260 MPV 10.2 Sodium 140 Potassium 4.4 Chloride 102 Carbon Dioxide 32 Anion Gap 6 BUN 23 Creatinine 0.81 Est Cr Clr Drug Dosing 62.7 eGFR 84.80 BUN/Creatinine Ratio 28.4 H Glucose 80 Calcium 9.3 Troponin I High Sens 13.8 Diagnostic Findings Chest X-Ray 04/08/24 10:56 XR chest 2V PA/lateral CLINICAL HISTORY: worsening LLL pneumonia? TECHNIQUE: 2 views of the chest were obtained. Comparison: Comparison is made to chest radiograph 03/31/2024 FINDINGS: No lines and tubes are seen. The cardiomediastinal silhouette is normal. Faint bibasilar airspace opacities are seen. No evidence of pleural effusion or pneumothorax. IMPRESSION: Faint bibasilar airspace opacities are slightly more conspicuous than the prior exam, possibly representing worsening pneumonia versus aspiration/atelectasis. ACT 112: Negative or not required by law. Electronically signed by: Alejandro Ragland M.D. 04/08/2024 11:55 AM PG Care Time/CCT Total # of Minutes Spent Total Time Spent with Patient: Total time spent is greater than 50% in coordination of care (as documented) at patient's floor/unit and/or counseling patient: Coding Level of Care Code 78125 SUB INP/OBS CARE 3/50MIN Diagnoses Pneumonia J18.9 Abnormal EKG R94.31 Frequent falls R29.6 UTI (urinary tract infection) N39.0 Fbejovm-Wpzgb-Hmuts disease G60.0 Chronic obstructive pulmonary disease J44.9 Dysphagia R13.10 Severe sleep apnea G47.30 Occipital bone fracture S02.119A Rib fracture S22.39XA Orthostatic hypotension I95.1 AAA (abdominal aortic aneurysm) I71.40 Pulmonary nodules R91.8
[2024-04-09 06:41] LABS: Basophils # (auto) 0.06 K/uL (0.00-0.20); Basophils % (auto) 0.6 %; Eosinophils # (auto) 0.39 K/uL (0.00-0.50); Eosinophils % (auto) 3.9 %; Hematocrit (blood only) 35.1 % (42.0-52.0); Hemoglobin 11.3 g/dl (14.0-18.0); Immature Granulocytes # (auto) 0.13 K/uL (0.01-0.20); Immature Granulocytes % (auto) 1.3 %; Lymphocytes # (auto) 1.47 K/uL (1.20-3.40); Lymphocytes % (auto) 14.6 %; Mean Corpuscular Hemoglobin 26.7 pg (25.0-34.0); Mean Corpuscular Hgb Conc 32.2 g/dL (32.0-36.0); Mean Platelet Volume 10.5 fL (9.4-12.4); Monocytes # (auto) 1.34 K/uL (0.11-0.59); Monocytes % (auto) 13.3 %; Neutrophils % (auto) 66.3 %; Platelet Count 221 K/uL (130-400); RDW Coefficient of Variation 15.1 % (11.5-14.5); RDW Standard Deviation 45.2 fL (36.4-46.3); Red Blood Count 4.23 M/uL (4.70-6.10); White Blood Count 10.09 K/ul (4.8-10.8)
[2024-04-09 06:57] LABS: BUN Creatinine Ratio 24.4 (10-20); Calcium 9.3 mg/dl (8.6-10.3); Creatinine Clr Calc Pharmacy 64.8 ml/min
[2024-04-09 08:07] VITALS: TEMP 98.1
--- NOTE | 2024-04-09 10:37 | Discharge Summary ---
Discharge Summary Date of Service April 09, 2024 Principal Dx & Hospital Course #1 = Principal Diagnosis (1) Pneumonia: 88 y/o man with Akctuze-Qmawj-Ohiyp and frequent falls who was recently hospitalized at [facility] after a fall sustaining an occipital skull fracture. This did not require surgery. He was treated for aspiration pneumonia during that admission, reduction of polypharmacy was recommended, clonazepam was decreased and tramadol stopped. He was discharged to rehab at [facility] and admitted shortly after with fever. He had sepsis and acute metabolic encephalopathy on admission. Unclear to me whether fever was related to an aspiration pneumonia/pneumonitis or UTI, however, seemed more likely UTI since hypoxia resolved immediately and he has been on room air and chest CT findings on admission seem the same as chest CT from [facility] where he had already been treated for pneumonia. In addition procalcitonin was very low. Urine culture grew >100K pansensitive E. coli. He was treated with ceftriaxone/augmentin and doxycycline for 7 days and did improve. He was awaiting rehab discharge, on 04/08 he seemed more lethargic and had increase in purulence of his sputum so oral levofloxacin was started, plan for 5 day course. Today he is feeling well and has normal mental status. Problem list this admission: Sepsis related to aspiration pneumonia/pneumonitis or urinary tract infection, sepsis has resolved COPD/emphysema and bronchiectasis minimal elevation of high-sensitivity troponin, no evidence of acute coronary syndrome, consistent with mild myocardial demand ischemia dysphagia and aspiration multiple pulmonary nodules may be inflammatory or infectious in nature, follow- up CT imaging required hepatic steatosis 5 x 5 cm AAA renal cysts extensive ASCVD prostatomegaly with calcifications Xfpqnpu-Vkhzn-Jcvzd with painful peripheral neuropathy polypharmacy, benzodiazepine dependence, clonazepam has been tapered from usual outpatient dosing of 1 mg twice daily down to 0.5 mg 3 times daily with recommendation to slowly taper off of this For pneumonia complete course of oral levaquin Repeat chest CT in roughly 6 weeks to follow up pulmonary nodules, which hopefully are infectious/inflammatory (2) Abnormal EKG: ASCVD based on CT imaging. at time of admission patient's EKG showed mild ST segment elevation in the inferior leads. the EKG was repeated couple days later and the inferior ST segments had normalized. 04/06/24 - the telemetry clerks noted ST segment elevation once again. 12-lead EKG was obtained - inferior leads showed significantly worse ST segment elevation. urgent ECHO obtained - NORMAL LV function, NORMAL LV wall motion. patient has had NO chest pain, dyspnea, nausea, emesis, back pain or any ischemic symptoms. I spoke with [facility] Cardiology - abnormal inferior ST segments are likely due to his LVH. the inferior segments may change in morphology depending on volume status, etc in the setting of LVH. repeat EKG 04/[address] elevation inferior leads; if anything they are now inverted. troponin is negative. no evidence of ischemia. 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 as well as polypharmacy cont PT/OT needs rehab (4) UTI (urinary tract infection): 2nd pansensitive e.coli s/p 3 days of rocephin Transitionted to PO augmentin 04/03 completed 7 total days of Rx no symptoms to suggest prostatitis no LUTS (5) Ckathqo-Tfdge-Uqzyz disease: with resulting neuropathy follows with Dr David Farfan - [facility] Neurology neuropathic pain is severe despite high-dose lyrica + cymbalta he tried Lidocaine jelly to bilateral feet prn but not helpful consider a low-dose TCA but defer for now PSH attempted to discontinue the tramadol last discharge but unsuccessful because he had too much pain norco was more effective than tramadol but I am too hesitant to continue that because of his frequent falls and altered mental status (6) Chronic obstructive pulmonary disease: no exacerbation at this time see #1 above however (7) Dysphagia: known to have chronic dysphagia with aspiration based on several evaluations here in the past including VFSSs seen by speech therapy this admission - regular diet advised; no thickeners recommended because they are not efficacious in preventing aspiration (8) Severe sleep apnea: cont CPAP (9) Occipital bone fracture: 03/18/24 2nd to fall sent to [facility] following such - no intervention needed 25-OH vit D level 44 small hematoma overlying the fracture site - warm compresses prn (10) Rib fracture: right 7th rib no pain or symptoms from such 2nd to fall on 03/18/24 (11) Orthostatic hypotension: history of such - well-documented by Dr Jean-Paul Macedo in his outpatient cardiology notes - Orthostatic vitals here - Lyin/83 hr 67, Sittin/78 HR 60, Standin/84 HR 94 when these orthostatics were obtained he did NOT have dizziness or lightheadedness - ihox-hkl-xvzz orthostasis could be precipitating his falls at home - Not on BP medications follow for now could always consider midodrine or florinef he develops orthostatic symptoms (12) AAA (abdominal aortic aneurysm): 5cm in diameter - seen on CT abd/pelvis at [place] - made vascular surgery referral - Pt aware of this dx (13) Pulmonary nodules: as seen on CT chest at [place] - recommend repeat CT chest in about 6 weeks as outpatient Plan Chronic pain / neuropathy - -Continue Duloxetine, Clonazepam QID, Lyrica, tramadol Hyperlipidemia - -Continue Simvastatin Duskiness in toes/fingers - would probably benefit from low-dose CCB like nifedi pine for this but orthostasis would preclude such Further, he reports no pain in the toes or fingers Appeared more of a ruddiness today. Might be related to his neuropathy. Notes For Next Care Provider Chest CT in 6 weeks pulmonary nodules Continue slowly tapering clonazepam if possible Medication Changes From Visit Levaquin po Admission HPI Per Admitting Provider Tyson Jeffrey is an 88yo male with recent admission to [facility] following multiple falls. He was found to have an occipital bone fracture and a 7th rib fracture. He was discharged to a rehabilitation facility in [place] on 03/28/24. Patient presented to the ER earlier today with report of fever x 2 days and episodes of confusion. His daughter was present initially who states that patient was likely hallucinating. During my encounter patient is sleeping soundly, easily arousable. No family at bedside. He confirms 2 days of fever and feels that he may have been a little confused earlier today. Otherwise, no complaints- denies chest pain, pal pitations, abdominal pain, nausea, vomiting. On arrival to the ER patient tachycardic, tachypneic and hypoxic on room air at 85%. He was placed on supplemental O2 with improvement. ER Course: Ceftriaxone Doxycycline Discharge Exam PHYSICAL EXAMINATION Last 24h vital signs reviewed, see documentation in flowsheet General: comfortable appearing, no distress HEENT: Normocephalic, atraumatic, pupils round and equal, sclerae anicteric, no conjunctival injection, moist mucus membranes Lungs: Normal respiratory effort. diminished in bilateral bases. No RRW Heart: Regular rate and rhythm, no murmurs. No JVD Abdomen: Soft, nontender, nondistended. Bowel sounds present. Extremities: Warm, dry, well-perfused. No extremity edema. Neuro: Alert and oriented x 4, face symmetric, moves 4 extremities well Psych: Normal affect and behavior Discharge Plan Discharge Items Patient Disposition: Transfer Intermediate Fac Reason For Visit: FEVER, CONFUSION Discharge Diagnosis: Aspiration pneumonia/pneumonitis, E. coli UTI, acute metabolic encephalopathy Activity: Resume your previous activity Weightbearing: Full weightbearing Non-emergency contact: Primary Care Provider Call non-emergency contact if: you have any medication questions and your symptoms worsen Follow-up/Referrals: Helder Sage DO [Primary Care Provider] - Diet: Regular Addtl Attending Provider Instructions: PT and OT evaluate and treat Aspiration precautions Recommend follow up chest CT in 6 weeks for bibasilar infiltrates and pulmonary nodules Referral made to vascular surgery for AAA Pending Studies at Discharge: No Stand-Alone Forms: My [facility] Skilled Items Patient informed of condition?: Yes DNR: No Discharge Level of Care: Skilled Communicable Disease: No Discharge Prognosis: Improving Lines: None Urinary Catheter: No Medications and DC Order Prescriptions: New levofloxacin 750 mg Tablet 750 mg PO DAILY@1100 Qty: 0 0RF Rx Instructions: last dose 04/12 (completes 5 days) Continued omega-3 fatty acids-fish oil 150-400 mg capsule 1 cap PO BID Qty: 0 simvastatin 80 mg tablet 80 mg PO HS Qty: 100 3RF Rx Instructions: insurance prefers 100 day supply pregabalin [Lyrica] 150 mg capsule 150 mg PO TID 30 Days Qty: 90 2RF duloxetine 60 mg capsule,delayed release(DR/EC) 60 mg PO QAM Qty: 90 3RF duloxetine [Cymbalta] 30 mg capsule,delayed release(DR/EC) 30 mg PO QPM Qty: 30 5RF Rx Instructions: take one cap in the afternoon acetaminophen 500 mg tablet 500 - 1,000 mg PO DIRECTED PRN (Reason: FEVER/PAIN) sildenafil 50 mg tablet 50 mg PO DAILY PRN (Reason: sexual activity) Qty: 6 5RF Rx Instructions: administer 30 minutes to 4 hours before activity aspirin [Adult Aspirin Regimen] 81 mg tablet,delayed release (DR/EC) 81 mg PO DAILY Qty: 30 2RF sennosides-docusate sodium [Senna with Docusate Sodium] 8.6-50 mg Tablet 1 tab-cap PO BID multivitamin Tablet 1 tab PO QAM clonazepam 1 mg tablet 0.5 mg PO QID Qty: 14 0RF tramadol 50 mg tablet 50 mg PO Q6H PRN (Reason: pain) Qty: 14 0RF Discharge Orders: Discharge Order (Routine); Ordered 04/09/24 Ordered By: Luna Soliz Admission Data Admit Date/Time: 03/31/24 03:06 Attending Provider: Luna Soliz Admit Provider: Lauren Escobar Primary Care Provider: Helder Sage Other Providers: Lauren Escobar; Edwina Nye; IRB Approved Study,Darrel Other Interventions: Discharge Summary Assessment (RN) Last Done: 04/09/24 10:44 Hospital Stay Data Consultations 03/31/24 03:50 ED Decision to Admit Stat Diagnostic Imagining Performed 03/31/24 01:00 CT for pulmonary embolism PE [CT angio chest PE protocol] Stat Pending Results Patient Have Any Pending Studies at Discharge: No Discharge Instructions Given to Patient (Per Discharging Provider) PT and OT evaluate and treat Aspiration precautions Recommend follow up chest CT in 6 weeks for bibasilar infiltrates and pulmonary nodules Referral made to vascular surgery for AAA Total Time Total Time Spent Total Time Spent (In Minutes): I personally spent: 40 minutes today on clinical care activities including: reviewing chart notes and vital signs discussion with career center director examining and counseling the patient writing orders writing prescriptions, discharge instructions documentation Coding Level of Care Code 75342 INP/OBS DISCH >30 MIN Diagnoses Pneumonia J18.9 Abnormal EKG R94.31 Frequent falls R29.6 UTI (urinary tract infection) N39.0 Zejtiqc-Efjjr-Gmgzi disease G60.0 Chronic obstructive pulmonary disease J44.9 Dysphagia R13.10 Severe sleep apnea G47.30 Occipital bone fracture S02.119A Rib fracture S22.39XA Orthostatic hypotension I95.1 AAA (abdominal aortic aneurysm) I71.40 Pulmonary nodules R91.8
[2024-04-09 11:07] VITALS: BP 108/72; PULSE 87; RESP 18; O2SAT 93
== END 2024-04-09 13:39 | DRG 871 ==
LOC: ED 23:39 → SUATTDRO 03-31 03:06 → EDINP 03-31 03:06 → 2W 03-31 04:15